=== PATIENT | male | born 1980 | race Caucasian/White ===

== ENCOUNTER 2017-11-10 10:23 | Inpatient (IN) | payer OTHER, MEDICAID ==
[2017-11-10] VITALS (45 sets, daily range): BP systolic 72–119; BP diastolic 42–71
[~2017-11-10] VITALS: Ht 175.3 cm; Wt 80.3 kg
[2017-11-10] MEDS ORDERED: NACL 0.9% 2,000 ML IV SCH (10:32)
[2017-11-10] MEDS ORDERED: METOCLOPRAMIDE 10 MG/2 ML INJ VIAL IVP ONE (10:40)
[2017-11-10 10:53] LABS: BASOPHILS % (AUTO) 0.2 % (0.0-2.0); HEMATOCRIT 33.9 % (36-52); LYMPHOCYTES # (AUTO) 1.7 K/uL (2.0-11.5); MEAN CORPUSCULAR HEMOGLOBIN 30 pg (27-31); MEAN CORPUSCULAR HGB CONC 33 g/dL (33-37); MEAN CORPUSCULAR VOLUME 91.6 fL (80-94); MONOCYTES # (AUTO) 1.8 K/uL (0.8-1.0); MONOCYTES % (AUTO) 9.9 % (1.7-9.3); NEUTROPHILS # (AUTO) 14.9 K/uL (1.8-7.7); NEUTROPHILS % (AUTO) 80.9 % (42.2-75.2); PLATELET COUNT (AUTO) 259 K/uL (140-450); RED CELL DISTRIBUTION WIDTH 15.3 % (11.6-13.7); WHITE BLOOD COUNT (AUTO) 18.4 K/uL (4.8-10.8)
[2017-11-10] MEDS ORDERED: ATOR40TA40 PO (10:56)
[2017-11-10] MEDS ORDERED: THO25 PO ×2 (10:56→10:59)
[2017-11-10] MEDS ORDERED: PRON INH ×2 (10:56→18:18)
[2017-11-10] MEDS ORDERED: FLUT1DSK2 IH (10:56)
[2017-11-10] MEDS ORDERED: DEXT1DRO5 OP (10:56)
[2017-11-10] MEDS ORDERED: FERR325E14 PO (10:59)
[2017-11-10] MEDS ORDERED: DIVA250T PO (10:59)
[2017-11-10] MEDS ORDERED: DOCU-299 PO (10:59)
[2017-11-10 11:00] LABS: ANION GAP 18.9 (8-16); CARBON DIOXIDE 22.7 mmol/L (21-32); CREATININE 3.7 mg/dL (0.7-1.3); POTASSIUM 4.6 mmol/L (3.5-5.1)
[2017-11-10] MEDS ORDERED: NACL 0.9% 1,000 ML IV ONE ×2 (11:00→11:55)
[2017-11-10] MEDS ORDERED: PIPERACILLIN/TAZOBACTAM 3.375 GM in DEXTROSE 5% 50 ML IV ONE (11:00)
[2017-11-10] MEDS ORDERED: VANCOMYCIN 1,000 MG in DEXTROSE 5% 250 ML IV ONE (11:00)
[2017-11-10] MEDS ORDERED: ACETAMINOPHEN 650 MG SUPP RC ONE ×2 (11:00→11:05)
[2017-11-10] MEDS ORDERED: ALBUTEROL 0.083% 2.5 MG/3 ML NEBU INH ONE (11:10)
[2017-11-10] MEDS ORDERED: PIPERACILLIN/TAZOBACTAM 3.375 GM VIAL IV ONE (11:21)
[2017-11-10 11:26] LABS: TOTAL BILIRUBIN 0.4 mg/dL (0.0-1.0)
[2017-11-10 11:27] LABS: ALBUMIN 2.9 g/dL (3.4-5.0)
[2017-11-10 11:27] LABS: APPEARANCE,URINE CLEAR (CLEAR); BILIRUBIN,URINE 1+ (NEGATIVE); BLOOD, URINE NEGATIVE (NEGATIVE); COLOR,URINE YELLOW (YELLOW); LEUKOCYTE ESTERASE ,URINE NEGATIVE (NEGATIVE); NITRITE, URINE NEGATIVE (NEGATIVE); PH,URINE 5.5 (5.0-9.0); UGLUCOSE NEGATIVE (NEGATIVE)
[2017-11-10 11:54] LABS: RBC,URINE NONE SEEN /HPF (0-5); URINE AMORPHOUS URATE 1+ /HPF (None Seen); WBC,URINE 0-5 (RARE) /HPF (0-5)
[2017-11-10] MEDS ORDERED: LIDOCAINE 1% 50 ML ONE (11:58)
[2017-11-10 11:59] LABS: BARBITURATE, URINE NEG. ng/ml (NEG <=200); BENZODIAZEPINE, URINE NEG. ng/mL (NEG <=200); CANNABINOID, URINE NEG. ng/mL (NEG <=50); COCAINE, URINE NEG. ng/mL (NEG <=300); OPIATE, URINE NEG. ng/mL (NEG <=2000); PHENCYCLIDINE SCREEN,URINE NEG. ng/mL (NEG <=25)
[2017-11-10] MEDS ORDERED: VANCOMYCIN 1,000 MG VIAL ONE (12:45)
[2017-11-10] MEDS ORDERED: ACETAMINOPHEN 325 MG TAB PO PRN (12:55)
[2017-11-10] MEDS ORDERED: HYDROcodone/APAP 7.5/325 MG 1 TAB PO PRN (12:55)
[2017-11-10] MEDS ORDERED: ZOLPIDEM 5 MG TAB PO PRN (12:55)
[2017-11-10] MEDS: NACL 0.9% 1,000 ML IV SCH ×2 (12:55→22:07)
[2017-11-10] MEDS ORDERED: MORPHINE SULFATE 4 MG/ML SYR ONE (13:01)
[2017-11-10 13:48] LABS: FREE T4 (FREE THYROXINE) 0.8 ng/dL (0.76-1.46); MAGNESIUM 1.7 mg/dL (1.8-2.4); PHOSPHORUS 3.6 mg/dL (2.5-4.9); THYROID STIMULATING HORMONE 0.57 uIU/mL (0.34-3.74)
[2017-11-10] MEDS ORDERED: NOREPINEPHRINE 8 MG in DEXTROSE 5% 250 ML IV PRN (14:15)
[2017-11-10] MEDS ORDERED: LEVOFLOXACIN 750 MG/D5W PREMIX 150 ML IV SCH (16:00)
[2017-11-10] MEDS: PIPER/TAZO 3.375GM/D5W PREMIX 50 ML IV SCH ×2 (17:08→23:09)
[2017-11-10] MEDS ORDERED: PIPERACILLIN/TAZOBACTAM 3.375 GM in DEXTROSE 5% 50 ML IV SCH (18:00)
[2017-11-10] MEDS ORDERED: GEMF600T5 PO (18:18)
[2017-11-10] MEDS ORDERED: MULT-153 PO (18:18)
[2017-11-10] MEDS ORDERED: SPIMDI INH (18:18)
[2017-11-10] MEDS ORDERED: ZET10 PO (18:18)
[2017-11-10] MEDS ORDERED: ACET-2619 PO (18:18)
[2017-11-10] MEDS ORDERED: OMEG-32 PO (18:18)
[2017-11-10] MEDS ORDERED: MAGN400S PO (18:18)
[2017-11-10] MEDS ORDERED: TOP25 PO (18:18)
[2017-11-10] MEDS ORDERED: ATRN INH (18:18)
[2017-11-10] MEDS ORDERED: FISH100053 PO (18:18)
[2017-11-10] MEDS ORDERED: FURO-572 PO (18:18)
[2017-11-10] MEDS ORDERED: NIAC500T30 PO (18:18)
[2017-11-10] MEDS ORDERED: ASCO500T45 PO (18:18)
[2017-11-10] MEDS ORDERED: BISA5ECT43 PR (18:18)
[2017-11-10] MEDS ORDERED: MIRABULK PO (18:18)
[2017-11-10] MEDS ORDERED: SYN.075 PO (18:18)
[2017-11-10] MEDS ORDERED: METO25TE2 PO (18:18)
[2017-11-10] MEDS ORDERED: FLOR250 PO (18:18)
[2017-11-10] MEDS ORDERED: ESOM20EC PO (18:18)
[2017-11-10] MEDS ORDERED: LORA-476 PO (18:18)
[2017-11-10] MEDS ORDERED: FLEPED RC (18:18)
[2017-11-10] MEDS ORDERED: METO-485 PO (18:18)
[2017-11-10] MEDS ORDERED: BISACODYL 10 MG SUPP RC PRN (18:20)
[2017-11-10] MEDS ORDERED: MAGNESIUM HYDROXIDE 400 MG PO SCH (18:20)
[2017-11-10] MEDS ORDERED: SODIUM PHOSPHATE 118 ML ENEM RC PRN (18:20)
[2017-11-10] MEDS ORDERED: LORazepam 1 MG TAB PO PRN (18:20)
[2017-11-10] MEDS ORDERED: ALBUTEROL SULFATE/IPRATROPIU 3 ML SOL IH PRN (18:30)
[2017-11-10] MEDS ORDERED: MAGNESIUM HYDROXIDE 2400 MG/30 ML UDC PO PRN (18:30)
[2017-11-10] MEDS ORDERED: MAG SULF 2000 MG/WATER PREMIX 100 ML IV SCH (19:00)
[2017-11-10] MEDS: ALBUTEROL SULFATE/IPRATROPIU 3 ML SOL IH SCH (19:00)
[2017-11-10] MEDS: POLYVINYL ALCOHOL 1.4% OP 15 ML SOL OP SCH (20:20)
[2017-11-10] MEDS: ATORVASTATIN 20 MG TAB PO SCH (20:20)
[2017-11-10] MEDS: DOCUSATE SODIUM 100 MG GELCAP PO SCH (20:20)
[2017-11-10] MEDS: METOCLOPRAMIDE 10 MG TAB PO SCH (20:20)
[2017-11-10] MEDS: DIVALPROEX 250 MG TABEC PO SCH (20:20)
[2017-11-10] MEDS: chlorproMAZINE 25 MG TAB PO SCH ×2 (20:21)
[2017-11-10] MEDS: GEMFIBROZIL 600 MG TAB PO SCH (20:35)
[2017-11-10] MEDS ORDERED: DIVALPROEX SODIUM 750 MG PO SCH (21:00)
[2017-11-10] MEDS ORDERED: HYPROMELLOSE OP SCH (21:00)
[2017-11-10] MEDS ORDERED: NON-FORMULARY ITEM (Fluticasone/Salmeterol* (Advair 250-50 Diskus*) 1 PUFF) IH SCH (21:00)
[2017-11-10] MEDS ORDERED: DEXTRAN OP SCH (21:00)
[2017-11-10] MEDS ORDERED: NON-FORMULARY ITEM (Atorvastatin Calcium 1 TAB) PO SCH (21:00)
[2017-11-11] VITALS (30 sets, daily range): BP systolic 96–139; BP diastolic 53–74
[2017-11-11] MEDS: NACL 0.9% 1,000 ML IV SCH ×3 (01:00→22:10)
[2017-11-11] MEDS: PIPER/TAZO 3.375GM/D5W PREMIX 50 ML IV SCH ×4 (05:09→23:45)
[2017-11-11 05:58] LABS: ANION GAP 13.3 (8-16); CARBON DIOXIDE 22.1 mmol/L (21-32); CREATININE 1.7 mg/dL (0.7-1.3); POTASSIUM 4.4 mmol/L (3.5-5.1)
[2017-11-11 06:05] LABS: MAGNESIUM 2.4 mg/dL (1.8-2.4); PHOSPHORUS 2.8 mg/dL (2.5-4.9)
[2017-11-11] MEDS: LEVOTHYROXINE 0.075 MG TAB PO SCH (06:08)
[2017-11-11 06:09] LABS: CHOL/HDL RATIO 8.4 (1-4.5)
[2017-11-11 07:04] LABS: BASOPHILS % (AUTO) 0.1 % (0.0-2.0); HEMATOCRIT 26.8 % (36-52); LYMPHOCYTES # (AUTO) 1.1 K/uL (2.0-11.5); LYMPHOCYTES % (AUTO) 8.9 % (20.5-51.1); MEAN CORPUSCULAR HEMOGLOBIN 30 pg (27-31); MEAN CORPUSCULAR HGB CONC 32 g/dL (33-37); MEAN CORPUSCULAR VOLUME 93.2 fL (80-94); MONOCYTES # (AUTO) 0.8 K/uL (0.8-1.0); MONOCYTES % (AUTO) 6.3 % (1.7-9.3); NEUTROPHILS # (AUTO) 10.4 K/uL (1.8-7.7); NEUTROPHILS % (AUTO) 84.7 % (42.2-75.2); PLATELET COUNT (AUTO) 199 K/uL (140-450); RED BLOOD CELL COUNT(AUTO) 2.88 MIL/uL (4.20-6.10); RED CELL DISTRIBUTION WIDTH 15.2 % (11.6-13.7); WHITE BLOOD COUNT (AUTO) 12.3 K/uL (4.8-10.8)
[2017-11-11] MEDS: ALBUTEROL SULFATE/IPRATROPIU 3 ML SOL IH SCH ×3 (07:04→19:09)
[2017-11-11 07:08] LABS: HEMOGLOBIN 8.5 g/dL (12.0-18.0)
[2017-11-11] MEDS: PANTOPRAZOLE 40 MG TABEC PO SCH (08:10)
[2017-11-11] MEDS: TOPIRAMATE 25 MG TAB PO SCH ×2 (08:10→16:05)
[2017-11-11] MEDS: DOCUSATE SODIUM 100 MG GELCAP PO SCH ×2 (08:33→21:08)
[2017-11-11] MEDS: LACTOBACILLUS RHAMNOSUS GG 1 EACH CAP PO SCH (08:34)
[2017-11-11] MEDS: FERROUS SULFATE 325 MG TABEC PO SCH (08:35)
[2017-11-11] MEDS: DIVALPROEX 250 MG TABEC PO SCH ×2 (08:35→21:08)
[2017-11-11] MEDS: POLYETHYLENE GLYCOL 17 GM/PKT PO SCH (08:35)
[2017-11-11] MEDS: MULTIVITAMIN 1 TAB PO SCH (08:36)
[2017-11-11] MEDS: METOCLOPRAMIDE 10 MG TAB PO SCH ×4 (08:36→21:09)
[2017-11-11] MEDS: chlorproMAZINE 25 MG TAB PO SCH ×3 (08:37→21:10)
[2017-11-11] MEDS: ASCORBIC ACID 500 MG TAB PO SCH (08:38)
[2017-11-11] MEDS: POLYVINYL ALCOHOL 1.4% OP 15 ML SOL OP SCH ×4 (08:41→21:08)
[2017-11-11] MEDS: NIACIN 500 MG TAB PO SCH (08:42)
[2017-11-11] MEDS: GEMFIBROZIL 600 MG TAB PO SCH ×2 (08:59→21:08)
[2017-11-11] MEDS ORDERED: NON-FORMULARY ITEM (Tiotropium Bromide* (Spiriva Mdi*) 1 CAP) INH SCH (09:00)
[2017-11-11] MEDS ORDERED: OMEGA PO SCH ×2 (09:00)
[2017-11-11] MEDS ORDERED: EPA PO SCH (09:00)
[2017-11-11] MEDS ORDERED: NON-FORMULARY ITEM (Saccharomyces Boulardii* (Florastor*) 250 MG) PO SCH (09:00)
[2017-11-11] MEDS ORDERED: DHA PO SCH (09:00)
[2017-11-11] MEDS ORDERED: NON-FORMULARY ITEM (Esomeprazole Magnesium* (Nexium*) 1 CAP) PO SCH (09:00)
[2017-11-11] MEDS ORDERED: LEVOFLOXACIN 500 MG/D5W PREMIX 100 ML IV SCH (09:00)
[2017-11-11] MEDS ORDERED: FISH OIL PO SCH ×2 (09:00)
[2017-11-11] MEDS ORDERED: FATTY ACIDS PO SCH (09:00)
[2017-11-11] MEDS: LEVOFLOXACIN 750 MG/D5W PREMIX 150 ML IV SCH (16:05)
[2017-11-11] MEDS: EZETIMIBE 10 MG TAB PO SCH (16:19)
[2017-11-11] MEDS: CLINICAL MONITORING MC PRN ×2 (16:53→18:41)
[2017-11-11] MEDS ORDERED: BENZONATATE 100 MG CAPLF PO PRN (18:35)
[2017-11-11] MEDS: ATORVASTATIN 20 MG TAB PO SCH (21:09)
[2017-11-11] MEDS ORDERED: guaiFENesin 20 MG/ML UDC PO PRN (22:05)
[2017-11-12] VITALS (8 sets, daily range): BP systolic 112–132; BP diastolic 55–77
[2017-11-12] MEDS: guaiFENesin 20 MG/ML UDC PO PRN (03:30)
[2017-11-12] MEDS: PIPER/TAZO 3.375GM/D5W PREMIX 50 ML IV SCH ×4 (05:08→23:59)
[2017-11-12] MEDS: NACL 0.9% 1,000 ML IV SCH ×3 (05:08→22:07)
[2017-11-12 05:09] LABS: BASOPHILS % (AUTO) 0.1 % (0.0-2.0); EOSINOPHILS % (AUTO) 0.1 % (0.0-4.0); HEMATOCRIT 27.5 % (36-52); HEMOGLOBIN 8.8 g/dL (12.0-18.0); LYMPHOCYTES # (AUTO) 1.5 K/uL (2.0-11.5); LYMPHOCYTES % (AUTO) 13.9 % (20.5-51.1); MEAN CORPUSCULAR HEMOGLOBIN 30 pg (27-31); MEAN CORPUSCULAR HGB CONC 32 g/dL (33-37); MEAN CORPUSCULAR VOLUME 92.5 fL (80-94); MONOCYTES # (AUTO) 0.7 K/uL (0.8-1.0); MONOCYTES % (AUTO) 6.8 % (1.7-9.3); NEUTROPHILS # (AUTO) 8.4 K/uL (1.8-7.7); NEUTROPHILS % (AUTO) 79.1 % (42.2-75.2); PLATELET COUNT (AUTO) 215 K/uL (140-450); RED BLOOD CELL COUNT(AUTO) 2.97 MIL/uL (4.20-6.10); RED CELL DISTRIBUTION WIDTH 15.4 % (11.6-13.7); WHITE BLOOD COUNT (AUTO) 10.6 K/uL (4.8-10.8)
[2017-11-12] MEDS: LEVOTHYROXINE 0.075 MG TAB PO SCH (05:51)
[2017-11-12 05:57] LABS: MAGNESIUM 1.8 mg/dL (1.8-2.4); PHOSPHORUS 1.9 mg/dL (2.5-4.9)
[2017-11-12 05:59] LABS: CARBON DIOXIDE 21.4 mmol/L (21-32); CREATININE 1.3 mg/dL (0.7-1.3); POTASSIUM 4.4 mmol/L (3.5-5.1)
[2017-11-12] MEDS ORDERED: MAG SULF 2000 MG/WATER PREMIX 50 ML IV SCH ×2 (06:30→11:51)
[2017-11-12] MEDS: ALBUTEROL SULFATE/IPRATROPIU 3 ML SOL IH SCH ×3 (07:12→19:21)
[2017-11-12] MEDS: DOCUSATE SODIUM 100 MG GELCAP PO SCH ×2 (09:00→21:00)
[2017-11-12] MEDS: POLYETHYLENE GLYCOL 17 GM/PKT PO SCH (09:00)
[2017-11-12] MEDS: TOPIRAMATE 25 MG TAB PO SCH ×2 (09:01→16:28)
[2017-11-12] MEDS: POLYVINYL ALCOHOL 1.4% OP 15 ML SOL OP SCH ×4 (09:02→21:11)
[2017-11-12] MEDS: PANTOPRAZOLE 40 MG TABEC PO SCH (09:02)
[2017-11-12] MEDS: LACTOBACILLUS RHAMNOSUS GG 1 EACH CAP PO SCH (09:03)
[2017-11-12] MEDS: FERROUS SULFATE 325 MG TABEC PO SCH (09:04)
[2017-11-12] MEDS: DIVALPROEX 250 MG TABEC PO SCH ×2 (09:04→20:43)
[2017-11-12] MEDS: GEMFIBROZIL 600 MG TAB PO SCH ×2 (09:05→20:42)
[2017-11-12] MEDS: SODIUM PHOS / POTASSIUM PHOS 1 PKT PDR PO SCH ×2 (09:05→20:43)
[2017-11-12] MEDS: METOCLOPRAMIDE 10 MG TAB PO SCH ×4 (09:05→20:42)
[2017-11-12] MEDS: chlorproMAZINE 25 MG TAB PO SCH ×3 (09:06→20:45)
[2017-11-12] MEDS: MULTIVITAMIN 1 TAB PO SCH (09:06)
[2017-11-12] MEDS: NIACIN 500 MG TAB PO SCH (09:07)
[2017-11-12] MEDS: ASCORBIC ACID 500 MG TAB PO SCH (09:07)
[2017-11-12] MEDS: LEVOFLOXACIN 750 MG/D5W PREMIX 150 ML IV SCH (16:28)
[2017-11-12] MEDS: EZETIMIBE 10 MG TAB PO SCH (16:29)
[2017-11-12] MEDS: ATORVASTATIN 20 MG TAB PO SCH (20:42)
[2017-11-13] VITALS: BP 125/77
[2017-11-13 04:00] VITALS: BP 108/65
[2017-11-13] MEDS: PIPER/TAZO 3.375GM/D5W PREMIX 50 ML IV SCH ×4 (05:01→23:24)
[2017-11-13] MEDS: NACL 0.9% 1,000 ML IV SCH ×3 (05:01→22:07)
[2017-11-13 06:29] LABS: BASOPHILS % (AUTO) 0.2 % (0.0-2.0); EOSINOPHILS # (AUTO) 0.1 K/uL (0-0.4); EOSINOPHILS % (AUTO) 1.1 % (0.0-4.0); HEMATOCRIT 29.2 % (36-52); HEMOGLOBIN 9.5 g/dL (12.0-18.0); LYMPHOCYTES # (AUTO) 1.7 K/uL (2.0-11.5); LYMPHOCYTES % (AUTO) 18.9 % (20.5-51.1); MEAN CORPUSCULAR HEMOGLOBIN 30 pg (27-31); MEAN CORPUSCULAR HGB CONC 32 g/dL (33-37); MEAN CORPUSCULAR VOLUME 92.1 fL (80-94); MONOCYTES # (AUTO) 0.6 K/uL (0.8-1.0); MONOCYTES % (AUTO) 7.1 % (1.7-9.3); NEUTROPHILS # (AUTO) 6.5 K/uL (1.8-7.7); NEUTROPHILS % (AUTO) 72.7 % (42.2-75.2); PLATELET COUNT (AUTO) 253 K/uL (140-450); RED BLOOD CELL COUNT(AUTO) 3.17 MIL/uL (4.20-6.10); RED CELL DISTRIBUTION WIDTH 15.2 % (11.6-13.7); WHITE BLOOD COUNT (AUTO) 8.9 K/uL (4.8-10.8)
[2017-11-13] MEDS: LEVOTHYROXINE 0.075 MG TAB PO SCH (06:32)
[2017-11-13] MEDS: TOPIRAMATE 25 MG TAB PO SCH ×2 (06:32→15:24)
[2017-11-13 06:49] LABS: ANION GAP 15.6 (8-16); POTASSIUM 4.6 mmol/L (3.5-5.1)
[2017-11-13 07:05] LABS: MAGNESIUM 1.9 mg/dL (1.8-2.4); PHOSPHORUS 4.6 mg/dL (2.5-4.9)
[2017-11-13] MEDS: ALBUTEROL SULFATE/IPRATROPIU 3 ML SOL IH SCH ×3 (07:06→20:25)
[2017-11-13 08:00] VITALS: BP 107/61
[2017-11-13] MEDS: SODIUM PHOS / POTASSIUM PHOS 1 PKT PDR PO SCH ×3 (09:00→21:25)
[2017-11-13] MEDS: POLYETHYLENE GLYCOL 17 GM/PKT PO SCH (09:23)
[2017-11-13] MEDS: PANTOPRAZOLE 40 MG TABEC PO SCH (09:24)
[2017-11-13] MEDS: chlorproMAZINE 25 MG TAB PO SCH ×3 (09:24→21:28)
[2017-11-13] MEDS: FERROUS SULFATE 325 MG TABEC PO SCH (09:24)
[2017-11-13] MEDS: MULTIVITAMIN 1 TAB PO SCH (09:25)
[2017-11-13] MEDS: NIACIN 500 MG TAB PO SCH (09:25)
[2017-11-13] MEDS: GEMFIBROZIL 600 MG TAB PO SCH ×2 (09:25→21:26)
[2017-11-13] MEDS: DOCUSATE SODIUM 100 MG GELCAP PO SCH ×2 (09:25→21:00)
[2017-11-13] MEDS: LACTOBACILLUS RHAMNOSUS GG 1 EACH CAP PO SCH (09:25)
[2017-11-13] MEDS: ASCORBIC ACID 500 MG TAB PO SCH (09:26)
[2017-11-13] MEDS: METOCLOPRAMIDE 10 MG TAB PO SCH ×4 (09:26→21:27)
[2017-11-13] MEDS: DIVALPROEX 250 MG TABEC PO SCH ×2 (09:26→21:26)
[2017-11-13] MEDS: POLYVINYL ALCOHOL 1.4% OP 15 ML SOL OP SCH ×4 (09:40→21:28)
[2017-11-13] MEDS ORDERED: CLIN300C2 PO (11:36)
[2017-11-13] MEDS ORDERED: LEVO750T2 PO (11:36)
[2017-11-13] MEDS ORDERED: LACT1.4C PO (11:36)
[2017-11-13] MEDS ORDERED: METF500T PO (11:36)
[2017-11-13 12:00] VITALS: BP 119/78
[2017-11-13] MEDS ORDERED: INSULIN LISPRO SLIDING SCALE 100 UNITS/ML VIAL SUBQ PRN (12:50)
[2017-11-13] MEDS ORDERED: DEXTROSE 50% 50 ML SYR IVP PRN (12:50)
[2017-11-13] MEDS ORDERED: FLUCONAZOLE 400 MG/NS PREMIX 200 ML IV SCH (14:00)
[2017-11-13] MEDS: LEVOFLOXACIN 750 MG/D5W PREMIX 150 ML IV SCH (15:25)
[2017-11-13 16:00] VITALS: BP 112/68
[2017-11-13] MEDS: BLOOD GLUCOSE MONITORING 1 DEV DEV FS SCH ×2 (16:17→21:18)
[2017-11-13] MEDS: EZETIMIBE 10 MG TAB PO SCH (17:05)
[2017-11-13] MEDS: metFORMIN 500 MG TAB PO SCH (17:05)
[2017-11-13] MEDS: guaiFENesin 20 MG/ML UDC PO PRN (18:13)
[2017-11-13 20:00] VITALS: BP 134/76
[2017-11-13] MEDS: ATORVASTATIN 20 MG TAB PO SCH (21:26)
[2017-11-14] VITALS: BP 125/71
[2017-11-14] MEDS: guaiFENesin 20 MG/ML UDC PO PRN (02:23)
[2017-11-14 04:00] VITALS: BP 120/75
[2017-11-14] MEDS: PIPER/TAZO 3.375GM/D5W PREMIX 50 ML IV SCH ×2 (05:19→12:04)
[2017-11-14] MEDS: NACL 0.9% 1,000 ML IV SCH (05:20)
[2017-11-14] MEDS: BLOOD GLUCOSE MONITORING 1 DEV DEV FS SCH ×2 (06:29→12:17)
[2017-11-14] MEDS: LEVOTHYROXINE 0.075 MG TAB PO SCH (06:31)
[2017-11-14] MEDS: TOPIRAMATE 25 MG TAB PO SCH (06:31)
[2017-11-14] MEDS: ALBUTEROL SULFATE/IPRATROPIU 3 ML SOL IH SCH ×2 (07:47→13:40)
[2017-11-14 08:00] VITALS: BP 104/63
[2017-11-14] MEDS: SODIUM PHOS / POTASSIUM PHOS 1 PKT PDR PO SCH (09:00)
[2017-11-14] MEDS: POLYETHYLENE GLYCOL 17 GM/PKT PO SCH (09:00)
[2017-11-14] MEDS: DOCUSATE SODIUM 100 MG GELCAP PO SCH (09:00)
[2017-11-14] MEDS: NIACIN 500 MG TAB PO SCH (10:07)
[2017-11-14] MEDS: MULTIVITAMIN 1 TAB PO SCH (10:08)
[2017-11-14] MEDS: LACTOBACILLUS RHAMNOSUS GG 1 EACH CAP PO SCH (10:08)
[2017-11-14] MEDS: GEMFIBROZIL 600 MG TAB PO SCH (10:08)
[2017-11-14] MEDS: metFORMIN 500 MG TAB PO SCH (10:09)
[2017-11-14] MEDS: DIVALPROEX 250 MG TABEC PO SCH (10:09)
[2017-11-14] MEDS: ASCORBIC ACID 500 MG TAB PO SCH (10:10)
[2017-11-14] MEDS: METOCLOPRAMIDE 10 MG TAB PO SCH ×2 (10:10→12:24)
[2017-11-14] MEDS: PANTOPRAZOLE 40 MG TABEC PO SCH (10:10)
[2017-11-14] MEDS: POLYVINYL ALCOHOL 1.4% OP 15 ML SOL OP SCH ×2 (10:11→12:24)
[2017-11-14] MEDS: FERROUS SULFATE 325 MG TABEC PO SCH (10:11)
[2017-11-14] MEDS: chlorproMAZINE 25 MG TAB PO SCH (10:25)
[2017-11-14 12:00] VITALS: BP 119/69
[2017-11-14] MEDS ORDERED: FLUC200T PO (12:51)
[2017-11-14] MEDS ORDERED: METF500T PO (12:52)
[2017-11-14] MEDS ORDERED: LACT1.4C PO (12:53)
[2017-11-14] MEDS ORDERED: [UNRECOGNIZED DRUG - CODE] MC (12:58)
== END 2017-11-14 15:45 | DRG 871 ==
LOC: MED 10:23 → MIC 13:03 → MTU 11-12 12:32
PROVIDERS: ADMIT General Practice; ATTEND General Practice
PROC: 06HY33Z Insertion of Infusion Device into Lower Vein, Percutaneous Approach (ICD-10-PCS; principal; 2017-11-10)
PROC: 5A09357 Assistance with Respiratory Ventilation, Less than 24 Consecutive Hours, Continuous Positive Airway Pressure (ICD-10-PCS; 2017-11-10)
PROC: 5A09357 Assistance with Respiratory Ventilation, Less than 24 Consecutive Hours, Continuous Positive Airway Pressure (ICD-10-PCS; 2017-11-11)
DX: A41.9 Sepsis, unspecified organism (principal); J69.0 Pneumonitis due to inhalation of food and vomit; J96.01 Acute respiratory failure with hypoxia; N17.0 Acute kidney failure with tubular necrosis; R65.21 Severe sepsis with septic shock; E83.39 Other disorders of phosphorus metabolism; I24.8 Other forms of acute ischemic heart disease; E44.0 Moderate protein-calorie malnutrition; J44.0 Chronic obstructive pulmonary disease with (acute) lower respiratory infection; I10 Essential (primary) hypertension; E78.5 Hyperlipidemia, unspecified; E03.9 Hypothyroidism, unspecified; D64.9 Anemia, unspecified; K21.9 Gastro-esophageal reflux disease without esophagitis; E83.42 Hypomagnesemia; K59.00 Constipation, unspecified; E86.0 Dehydration; E66.3 Overweight; F79 Unspecified intellectual disabilities; E11.65 Type 2 diabetes mellitus with hyperglycemia; Z88.8 Allergy status to other drugs, medicaments and biological substances; Z79.899 Other long term (current) drug therapy; Z89.412 Acquired absence of left great toe; Z68.26 Body mass index [BMI] 26.0-26.9, adult
CPT/HCPCS: 36415; 36556; 36600; 71045; 80048; 80053; 80305; 81001; 82150; 82803; 82948; 83036; 83605; 83690; 83735; 83880; 84100; 84439; 84443; 84484; 85025; 86886; 86900; 86901; 87040; 87070; 87081; 87086; 87205; 89220; 92526; 93005; 94640; 94660; 96361; 96365; 96375; 99291; C1758; J1450; J1815; J1956; J2001; J2270; J2543; J2765; J3370; J3475; J3490; J7030; J7060; J7613; J7620; J8597; Q0092

== ENCOUNTER 2018-03-04 16:37 | Emergency (ER) | payer OTHER, MEDICAID ==
[~2018-03-04] VITALS: Ht 175.3 cm; Wt 73.0 kg
[~2018-03-04 16:37] MED LIST: ACET-2619 PO; ASCO500T45 PO; ATOR40TA40 PO; ATRN INH; BISA5ECT43 PR; CLIN300C2 PO; DEXT1DRO5 OP; DIVA250T PO; DOCU-299 PO; ESOM20EC PO; FERR325E14 PO; FISH100053 PO; FLEPED RC; FLOR250 PO; FLUC200T PO; FLUT1DSK2 IH; GEMF600T5 PO; LACT1.4C PO; LEVO750T2 PO; LORA-476 PO; MAGN400S PO; METF500T PO; METO-485 PO; MIRABULK PO; MULT-153 PO; NIAC500T30 PO; OMEG-32 PO; PRON INH; SPIMDI INH; SYN.075 PO; THO25 PO; TOP25 PO; ZET10 PO; [UNRECOGNIZED DRUG - CODE] MC
[2018-03-04 16:50] VITALS: BP 115/83
--- NOTE | 2018-03-04 16:53 | NUR ---
PT AMBULATES BACK TO THE LOBBY WITH [facility] REDEVELOPMENT SITE MANAGER
--- NOTE | 2018-03-04 18:16 | NUR ---
PT AMBULATES TO BED 8
--- NOTE | 2018-03-04 18:16 | NUR ---
PT AMBULATES TO BED 8 AT THIS TIME W/ STEADY GAIT
--- NOTE | 2018-03-04 18:23 | NUR ---
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 PER CAREGIVER, PT HAS BEEN EATING/DRINKING WELL. PT HAD 2X LARGE BM TODAY. PT IS A POOR HISTORIAN. PT PRESENTS ON 2L/MIN OF 02. PT AAOX4, REPORTS THAT HE WANTS TO BE ADMITTED. CAREGIVER REPORTS THAT HE HAS "EPISODES" SIMILAR TO THIS WHERE HE FIXATES ON A PROBLEM SO THAT HE CAN BE ADMITTED TO THE HOSPITAL. RR EVEN AND UNLABORED, LUNGS BL CLEAR. CMS INTACT. ABD SOFT, NON-TENDER. BOWEL SOUNDS ACTIVE X 4. ER MD NOTIFIED OF PT STATUS. SAFETY PRECAUTIONS IN PLACE. WILL CONTINUE TO MONITOR. PT NEEDS MET. PT GIVEN A URINAL TO ATTEMPT TO OBTAIN URINE SAMPLE.
[2018-03-04] MEDS ORDERED: NACL 0.9% 1,000 ML IV SCH (18:27)
[2018-03-04] MEDS ORDERED: BISACODYL 5 MG TABEC PO ONE (18:30)
[2018-03-04] MEDS ORDERED: POLYETHYLENE GLYCOL 17 GM/PKT PO ONE (18:30)
[2018-03-04] MEDS ORDERED: LORazepam 2 MG/ML VIAL IVP ONE (18:30)
[2018-03-04] MEDS ORDERED: BISACODYL 10 MG SUPP RC ONE (18:30)
[2018-03-04 19:17] LABS: EOSINOPHILS % (AUTO) 0.7 % (0.0-4.0); HEMATOCRIT 34.1 % (36-52); HEMOGLOBIN 10.9 g/dL (12.0-18.0); LYMPHOCYTES % (AUTO) 35.3 % (20.5-51.1); MEAN CORPUSCULAR HEMOGLOBIN 30 pg (27-31); MEAN CORPUSCULAR HGB CONC 32 g/dL (33-37); MEAN CORPUSCULAR VOLUME 92.8 fL (80-94); MONOCYTES % (AUTO) 11.5 % (1.7-9.3); NEUTROPHILS % (AUTO) 51.8 % (42.2-75.2); PLATELET COUNT (AUTO) 389 K/uL (140-450); RED BLOOD CELL COUNT(AUTO) 3.67 MIL/uL (4.20-6.10); RED CELL DISTRIBUTION WIDTH 14.3 % (11.6-13.7); WHITE BLOOD COUNT (AUTO) 8.1 K/uL (4.8-10.8)
[2018-03-04 19:18] LABS: BASOPHILS % (AUTO) 0.7 % (0.0-2.0)
[2018-03-04 19:21] LABS: ALBUMIN 3.6 g/dL (3.4-5.0); ANION GAP 12.8 (8-16); CARBON DIOXIDE 25.8 mmol/L (21-32); CREATININE 1.3 mg/dL (0.7-1.3); POTASSIUM 4.6 mmol/L (3.5-5.1); TOTAL BILIRUBIN 0.2 mg/dL (0.0-1.0)
--- NOTE | 2018-03-04 19:21 | NUR ---
TRANSFER OF CARE AT THIS TIME, REPORT GIVEN TO KARISSA BABB
--- NOTE | 2018-03-04 19:22 | NUR ---
RECIEVED REPORT FROM NAHUM RN, PT IN STABLE CONDITION
--- NOTE | 2018-03-04 19:22 | NUR ---
REPORT RECIEVED FROM NAHUM HANCOCK PT IN STABLE CONDITON
--- NOTE | 2018-03-04 19:41 | NUR ---
PT TAKEN TO CT AT THIS TIME
[2018-03-04 20:07] LABS: APPEARANCE,URINE CLEAR (CLEAR); BILIRUBIN,URINE NEGATIVE (NEGATIVE); BLOOD, URINE NEGATIVE (NEGATIVE); COLOR,URINE YELLOW (YELLOW); LEUKOCYTE ESTERASE ,URINE NEGATIVE (NEGATIVE); NITRITE, URINE NEGATIVE (NEGATIVE); UGLUCOSE NEGATIVE (NEGATIVE)
--- NOTE | 2018-03-04 20:57 | NUR ---
PT RESTING COMFORTABLY IN BED. NO S/S OF DISTRESS NOTED
[2018-03-04 21:07] VITALS: BP 120/88
--- NOTE | 2018-03-04 21:08 | NUR ---
Patient discharged with v/s stable. Written and verbal after care instructions given and explained. Patient alert, oriented and verbalized understanding of instructions. Ambulatory with steady gait. All questions addressed prior to discharge. ID band removed. Patient advised to follow up with PMD. Rx of AZITHROMYCIN given. Patient educated on indication of medication including possible reaction and side effects. Opportunity to ask questions provided and answered.
== END 2018-03-04 21:07 | disposition home or self-care (01) ==
LOC: MED 16:37
DX: J18.9 Pneumonia, unspecified organism (principal); R10.13 Epigastric pain; J44.9 Chronic obstructive pulmonary disease, unspecified; K21.9 Gastro-esophageal reflux disease without esophagitis; E03.9 Hypothyroidism, unspecified; Z88.8 Allergy status to other drugs, medicaments and biological substances; Z79.84 Long term (current) use of oral hypoglycemic drugs; Z79.899 Other long term (current) drug therapy
CPT/HCPCS: 36415; 74176; 80053; 81003; 82948; 83690; 85025; 96374; 99285; J2060

== ENCOUNTER 2018-03-31 21:44 | Inpatient (IN) | payer OTHER, MEDICAID ==
[~2018-03-31] VITALS: Ht 175.3 cm; Wt 78.9 kg
[2018-03-31 21:55] VITALS: BP 125/90
--- NOTE | 2018-03-31 21:55 | NUR ---
PT BIBA BLS TO BED 9, PT AMBULATORY , PROVIDED URINE SAMPLE.
--- NOTE | 2018-03-31 22:20 | NUR ---
PT PRESENTS TO ED WITH C/O ABD PAIN WITH N/V X 1 DAY. ABDOMEN IS SOFT, NON-TENDER BOWEL SOUNDS ACTIVE X 4 QUADRANTS. NO REBOUND TENDERNESS PRESENT UPON PALPATION. PT PLACED IN BED, IN GOWN PENDING MD CABALLERO.
[2018-03-31] MEDS ORDERED: FOLI1TAB90 PO (22:53)
[2018-03-31] MEDS ORDERED: [UNRECOGNIZED DRUG - CODE] PO (22:53)
[2018-03-31] MEDS ORDERED: HYD1C TP (22:53)
--- NOTE | 2018-04-01 00:10 | NUR ---
PT RESTING IN BED, NO NEW COMPLAINTS OR QUESTIONS. WILL CONTINUE TO MONITOR.
[2018-04-01 00:29] LABS: HEMATOCRIT 35.8 % (36-52); HEMOGLOBIN 11.8 g/dL (12.0-18.0); MEAN CORPUSCULAR HEMOGLOBIN 30 pg (27-31); MEAN CORPUSCULAR HGB CONC 33 g/dL (33-37); MEAN CORPUSCULAR VOLUME 92.1 fL (80-94); PLATELET COUNT (AUTO) 266 K/uL (140-450); RED BLOOD CELL COUNT(AUTO) 3.89 MIL/uL (4.20-6.10); RED CELL DISTRIBUTION WIDTH 14.5 % (11.6-13.7)
[2018-04-01 00:49] LABS: EOSINOPHILS % (MANUAL) 1 % (0-4); LYMPHOCYTES % (MANUAL) 40 % (20-46); MONOCYTES % (MANUAL) 5 % (5-12)
[2018-04-01 00:51] LABS: CARBON DIOXIDE 29.8 mmol/L (21-32); CREATININE 1.3 mg/dL (0.7-1.3); POTASSIUM 4.8 mmol/L (3.5-5.1)
[2018-04-01 00:55] LABS: ALBUMIN 4.1 g/dL (3.4-5.0); TOTAL BILIRUBIN 0.2 mg/dL (0.0-1.0)
[2018-04-01] MEDS ORDERED: NACL 0.9% 2,000 ML IV ONE (01:15)
[2018-04-01] MEDS ORDERED: MORPHINE SULFATE 2 MG/ML SYR IVP PRN (01:20)
[2018-04-01] MEDS ORDERED: DOCUSATE SODIUM 100 MG GELCAP PO PRN (01:20)
[2018-04-01] MEDS ORDERED: HYDROcodone/APAP 5/325 MG 1 TAB TAB PO PRN (01:20)
[2018-04-01] MEDS ORDERED: ACETAMINOPHEN 325 MG TAB PO PRN (01:20)
[2018-04-01] MEDS: DEXT 5% / NACL 0.45% 1,000 ML IV SCH ×3 (01:20→21:20)
[2018-04-01] MEDS ORDERED: ZOLPIDEM 5 MG TAB PO PRN (01:20)
[2018-04-01] MEDS ORDERED: ONDANSETRON 4 MG/2 ML VIAL IM/IVP PRN (01:20)
[2018-04-01] MEDS ORDERED: LORazepam 2 MG/ML VIAL IM/IVP PRN (01:20)
[2018-04-01 01:59] LABS: PROTHROMBIN TIME 10.4 secs (10.8-13.4)
[2018-04-01 02:00] LABS: MAGNESIUM 2.2 mg/dL (1.8-2.4); PHOSPHORUS 4.4 mg/dL (2.5-4.9)
[2018-04-01 02:05] LABS: APPEARANCE,URINE CLEAR (CLEAR); BILIRUBIN,URINE NEGATIVE (NEGATIVE); BLOOD, URINE NEGATIVE (NEGATIVE); COLOR,URINE YELLOW (YELLOW); UGLUCOSE NEGATIVE (NEGATIVE)
[2018-04-01 02:06] LABS: LEUKOCYTE ESTERASE ,URINE NEGATIVE (NEGATIVE); NITRITE, URINE NEGATIVE (NEGATIVE)
[2018-04-01 02:11] LABS: BARBITURATE, URINE NEG. ng/ml (NEG <=200); BENZODIAZEPINE, URINE NEG. ng/mL (NEG <=200); COCAINE, URINE NEG. ng/mL (NEG <=300); OPIATE, URINE NEG. ng/mL (NEG <=2000); PHENCYCLIDINE SCREEN,URINE NEG. ng/mL (NEG <=25)
[2018-04-01 02:40] LABS: CANNABINOID, URINE NEG. ng/mL (NEG <=50)
[2018-04-01] MEDS ORDERED: DEXTROSE 50% 50 ML SYR IVP PRN (02:40)
[2018-04-01] MEDS ORDERED: INSULIN LISPRO SLIDING SCALE 100 UNITS/ML VIAL SUBQ PRN (02:40)
--- NOTE | 2018-04-01 02:57 | NUR ---
Patient will be admitted to care of DR LOWRY. Admited to MED-SURG. Will go to room 120-A. Belongings list completed. Report to KARISSA GRAMAJO.
[2018-04-01] MEDS ORDERED: ALBUTEROL SULFATE/IPRATROPIU 3 ML SOL IH PRN (03:15)
[2018-04-01] MEDS ORDERED: BISACODYL 10 MG SUPP RC PRN ×2 (03:50→06:00)
[2018-04-01] MEDS ORDERED: SODIUM PHOSPHATE PEDIATRIC 67.5 ML ENEM RC SCH (03:50)
[2018-04-01 04:00] VITALS: BP 130/80
[2018-04-01] MEDS ORDERED: cefTRIAXone 1,000 MG VIAL ONE (04:23)
[2018-04-01] MEDS ORDERED: MAGNESIUM HYDROXIDE 2400 MG/30 ML UDC PO PRN (04:25)
[2018-04-01] MEDS ORDERED: METO25TA PO (04:26)
[2018-04-01] MEDS: BLOOD GLUCOSE MONITORING 1 DEV DEV FS SCH ×4 (05:19→20:20)
[2018-04-01] MEDS: metroNIDAZOLE 500 MG/NS PREMIX 100 ML IV SCH ×3 (05:36→20:20)
[2018-04-01] MEDS: ALBUTEROL SULFATE/IPRATROPIU 3 ML SOL IH SCH ×3 (06:59→19:00)
--- NOTE | 2018-04-01 07:18 | NUR ---
ENDORSED PT TO AM NURSE. PT IN STABLE CONDITION
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
[2018-04-01 08:00] VITALS: BP 134/80
--- NOTE | 2018-04-01 08:39 | NUR ---
ABDOMINAL ULTRASOUND IN PROGRESS MEDICAL OFFICE ASSISTANT TO ATTEMPT ABG AND INCENTIVE SPIROMETRY THERAPY AT A LATER TIME
[2018-04-01] MEDS ORDERED: POLYETHYLENE GLYCOL 17 GM/PKT PO SCH (09:00)
[2018-04-01] MEDS ORDERED: ASCORBIC ACID 500 MG TAB PO SCH (09:00)
[2018-04-01] MEDS ORDERED: LEVOTHYROXINE 0.075 MG TAB PO SCH (09:00)
--- NOTE | 2018-04-01 09:02 | NUR ---
PATIENT HAS BEEN SCREENED AND CATEGORIZED HIGH NUTRITION RISK. PATIENT WILL BE SEEN WITHIN 1-2 DAYS OF ADMISSION. 04/01/18 04/02/[address]
[2018-04-01] MEDS: chlorproMAZINE 25 MG TAB PO SCH ×2 (09:08→20:21)
[2018-04-01] MEDS: METOPROLOL 25 MG TAB PO SCH ×2 (09:09→20:21)
[2018-04-01] MEDS: MULTIVIT/MIN/CA/FE/FA 1 TAB PO SCH (09:09)
[2018-04-01] MEDS: PANTOPRAZOLE 40 MG TABEC PO SCH (09:10)
[2018-04-01] MEDS: FERROUS SULFATE 325 MG TABEC PO SCH (09:10)
[2018-04-01] MEDS: DOCUSATE SODIUM 100 MG GELCAP PO SCH (09:11)
[2018-04-01] MEDS: ATORVASTATIN 20 MG TAB PO SCH (09:11)
[2018-04-01] MEDS: GEMFIBROZIL 600 MG TAB PO SCH ×2 (09:12→20:21)
[2018-04-01] MEDS: METOCLOPRAMIDE 10 MG TAB PO SCH ×4 (09:12→20:21)
[2018-04-01] MEDS: NIACIN 500 MG TAB PO SCH (09:12)
[2018-04-01] MEDS: metFORMIN 500 MG TAB PO SCH ×2 (09:12→20:20)
[2018-04-01] MEDS: TOPIRAMATE 25 MG TAB PO SCH ×2 (09:13→20:22)
[2018-04-01] MEDS: DIVALPROEX 250 MG TABEC PO SCH ×2 (09:13→20:20)
[2018-04-01] MEDS: POLYETHYLENE GLYCOL 17 GM/PKT PO SCH (09:14)
--- NOTE | 2018-04-01 11:29 | NUR ---
AWAKE AND ALERT RESPONSIVE TOLERATED INCENTIVE SPIROMETRY (IS) THERAPY WELL WITHOUT INCIDENT ENCOURAGED PATIENT WITH ACKNOWLEDGEMENT TO USE IS EVERY 1-2 HOURS WHILE AWAKE
--- NOTE | 2018-04-01 13:00 | NUR ---
SPUTUM COLLECTED AND SENT TO LAB.
[2018-04-01 16:00] VITALS: BP 134/80
--- NOTE | 2018-04-01 16:59 | NUR ---
04/01/18 RD INITIAL ASSESSMENT COMPLETED PLEASE REFER TO NUTRITION ASSESSMENT UNDER CARE ACTIVITY FOR ESTIMATED NUTRITIONAL NEEDS. 1. RECOMMEND A CCHO 60 GM AND CARDIAC DIET 2. RD TO FOLLOW-UP 3-5 DAYS, MODERATE RISK FABIOLA GALVAN, RD
[2018-04-01] MEDS: EZETIMIBE 10 MG TAB PO SCH (17:15)
--- NOTE | 2018-04-01 18:26 | NUR ---
* ST NOTE * Pt seen at bedside. Pt alert, cooperative and engaged throughout session, reporting no c/o pain at this time. Bedside dysphagia and oral mechanism exams completed. See evaluation report for further details. Pt tolerating 4/4 alternating PO trials of regular solid saltine crackers as well as 5/5 alternating PO trials of nectar-thick apple juice via a cup, all w/o s/s of aspiration or choking. Pt education completed regarding aspiration precautions and safe swallow compensatory strategies pt could utilize to aid w/swallow function, w/pt demonstrating follow through requiring occasional to no cueing from the clinician after setup of task. It is thus recommended pt's PO diet consistency remain at regular solids w/nectar-thickened liquids for all meals w/aspiration precautions in place. No further ST follow up recommended at this time. Pt and caregiver/Nsg Luis Antonio education completed regarding results of evaluation; benefits of abiding by recommended PO diet consistency and aspiration precautions; and prognosis for improvement; with pt and caregiver/nsg Luis Antonio verbalizing understanding and agreement w/clinician's recommendations. Recommend: - PO diet consistency of REGULAR SOLIDS W/NECTAR-THICKENED LIQUIDS for all meals - Maintain STRICT ASPIRATION PRECAUTIONS DURING PT'S PO INTAKE OF SOLIDS/LIQUIDS/MEDICATION 2/2 to pt's Dx of aspiration pna - Remind/Cue pt to SIT UP AT 80-90 DEGREE ANGLE DURING PO INTAKE; EAT SLOWLY; ALTERNATE BTWN SOLIDS & LIQUIDS; AND TAKE SMALL BITES/SIPS No further ST follow up recommended at this time. G8996 CJ G8997 CI G8998 CI NOMS Level 2 Time In/Out 17:55 -18:25
--- NOTE | 2018-04-01 19:15 | NUR ---
ENDORSED PT TO STREET LIGHT SERVICER RN. PT IN STABLE CONDITION.
--- NOTE | 2018-04-01 19:16 | NUR ---
RECEIVED PT IN STABLE CONDITION FROM KS NURSE. AWAKE,ALERT AND ORIENTED X3. PT HAS DEVELOPMENTAL DELAY. PT NEED ASSISTANCE IN AMBULATION. WITH ASPIRATION PRECAUTION. NEED NECTAR THICKENER PER ST EVALUATION. WILL HAVE MD AWARE FOR CHANGE IN DIET. PT HAS IVF INFUSING WELL ON THE LEFT EXTERNAL JUGULAR . BED ON LOW POSITION . SIDE RAILS ARE PADDED FOR SEIZURE PRECAUTION. CALL LIGHT PLACED WITHIN EASY REACH. WILL CONTINUE TO MONITOR.
--- NOTE | 2018-04-01 20:20 | NUR ---
BLOOD SUGAR WAS CHECKED RESULT 120. NO INSULIN COVERAGE NEEDED. PT HAD SOME PUDDING. WILL CONTINUE TO MONITOR.
--- NOTE | 2018-04-01 20:25 | NUR ---
PT ABLE TO TOLERATE ALL NIGHT MEDS WITH PUDDING AND WATER WITH THICKENER. NO SWALLOWING PROBLEM NOTED.
--- NOTE | 2018-04-01 22:00 | NUR ---
HAS BEEN ASSISTED TO THE BATHROOM. HAD A BM. ABLE TO AMBULATE WITH STANDBY ASSISTANCE.
[2018-04-01 23:35] VITALS: BP 110/76
--- NOTE | 2018-04-02 00:30 | NUR ---
PT NOW ASLEEP. NO S/S OF ANY DISCOMFORT NOTED.
--- NOTE | 2018-04-02 03:16 | NUR ---
HAS BEEN UP TO THE BATHROOM. VOIDED WELL.
[2018-04-02] MEDS: metroNIDAZOLE 500 MG/NS PREMIX 100 ML IV SCH ×3 (04:39→20:57)
[2018-04-02] MEDS: BLOOD GLUCOSE MONITORING 1 DEV DEV FS SCH ×4 (06:18→20:42)
--- NOTE | 2018-04-02 06:18 | NUR ---
BLOOD SUGAR THIS AM 107. PT ON IVF INFUSING WELL.
[2018-04-02 06:22] LABS: BASOPHILS % (AUTO) 0.3 % (0.0-2.0); EOSINOPHILS # (AUTO) 0.1 K/uL (0-0.4); HEMATOCRIT 36.7 % (36-52); HEMOGLOBIN 12.1 g/dL (12.0-18.0); LYMPHOCYTES # (AUTO) 2.7 K/uL (2.0-11.5); LYMPHOCYTES % (AUTO) 30.2 % (20.5-51.1); MEAN CORPUSCULAR HEMOGLOBIN 31 pg (27-31); MEAN CORPUSCULAR HGB CONC 33 g/dL (33-37); MEAN CORPUSCULAR VOLUME 92.6 fL (80-94); MONOCYTES # (AUTO) 0.8 K/uL (0.8-1.0); MONOCYTES % (AUTO) 9.5 % (1.7-9.3); NEUTROPHILS # (AUTO) 5.2 K/uL (1.8-7.7); PLATELET COUNT (AUTO) 220 K/uL (140-450); RED BLOOD CELL COUNT(AUTO) 3.97 MIL/uL (4.20-6.10); RED CELL DISTRIBUTION WIDTH 14.6 % (11.6-13.7); WHITE BLOOD COUNT (AUTO) 8.8 K/uL (4.8-10.8)
[2018-04-02] MEDS: ALBUTEROL SULFATE/IPRATROPIU 3 ML SOL IH SCH ×3 (07:23→19:15)
--- NOTE | 2018-04-02 07:25 | NUR ---
RECEIVED PT REPORT FROM WAYS OPERATOR RN AT BEDSIDE. PT IS AAOX3, AMBULATORY, IV ON LEFT NECK 20G, INTACT AND INFUSING WELL. NO S/S OF DISTRESS ON ROOM AIR. PT COUGHS SOMETIMES. SKIN WARM TO TOUGH, INTACT. FALL AND SEIZURE PRECAUTIONS IN PLACE. BED IN LOWEST POSITION. CALL LIGHT WITHIN REACH.
--- NOTE | 2018-04-02 07:30 | NUR ---
ENDORSED PT IN STABLE CONDITION TO AM NURSE.
[2018-04-02 07:52] LABS: ANION GAP 13.3 (8-16); CARBON DIOXIDE 25.6 mmol/L (21-32); CREATININE 1.2 mg/dL (0.7-1.3); POTASSIUM 4.9 mmol/L (3.5-5.1)
[2018-04-02 07:55] LABS: CHOL/HDL RATIO 4.3 (1-4.5); MAGNESIUM 2.1 mg/dL (1.8-2.4); PHOSPHORUS 3.7 mg/dL (2.5-4.9)
[2018-04-02 08:00] VITALS: BP 123/84
[2018-04-02] MEDS ORDERED: SODIUM PHOSPHATE 118 ML ENEM RC PRN (08:20)
[2018-04-02] MEDS: NACL 0.9% 1,000 ML IV SCH (08:44)
[2018-04-02] MEDS: chlorproMAZINE 25 MG TAB PO SCH ×2 (08:44→20:52)
[2018-04-02] MEDS: PANTOPRAZOLE 40 MG TABEC PO SCH (08:45)
[2018-04-02] MEDS: POLYETHYLENE GLYCOL 17 GM/PKT PO SCH (08:45)
[2018-04-02] MEDS: DOCUSATE SODIUM 100 MG GELCAP PO SCH (08:45)
[2018-04-02] MEDS: METOPROLOL 25 MG TAB PO SCH ×2 (08:45→20:42)
[2018-04-02] MEDS: FERROUS SULFATE 325 MG TABEC PO SCH (08:46)
[2018-04-02] MEDS: DIVALPROEX 250 MG TABEC PO SCH ×2 (08:46→20:52)
[2018-04-02] MEDS: METOCLOPRAMIDE 10 MG TAB PO SCH ×4 (08:47→20:52)
[2018-04-02] MEDS: GEMFIBROZIL 600 MG TAB PO SCH ×2 (08:47→20:53)
[2018-04-02] MEDS: ATORVASTATIN 20 MG TAB PO SCH (08:47)
[2018-04-02] MEDS: NIACIN 500 MG TAB PO SCH (08:47)
[2018-04-02] MEDS: TOPIRAMATE 25 MG TAB PO SCH ×2 (08:47→20:53)
[2018-04-02] MEDS: ASCORBIC ACID 500 MG TAB PO SCH (08:47)
[2018-04-02] MEDS: metFORMIN 500 MG TAB PO SCH (08:48)
[2018-04-02] MEDS: MULTIVIT/MIN/CA/FE/FA 1 TAB PO SCH (08:48)
--- NOTE | 2018-04-02 12:10 | NUR ---
Fleet Administrator Note: Per gastroenterology manager from [facility], Brenda Gipson they can't accommodate patient on abx ivs at their facility. Patient's pcp goes to the facility once a month to follow up with patient. Patient has continuos home O2 at [facility]. Brenda stated prior to hospital admission patient had no difficulty ambulating at their facility. She reported patient does not have any family, is not conserved. Patient's rn case management from [facility] is Imani Iqbal .
--- NOTE | 2018-04-02 12:18 | NUR ---
Employee Operations Examiner Note: I faxed inquiry to [facility]. Jazzy from [facility] came to evaluate patient, she stated patient has been accepted and may be transfer to their facility once medically stable, case assembler Brissa made aware.
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
--- NOTE | 2018-04-02 14:01 | NUR ---
LAST SPUTUM WAS REJECTED, SPUTUM RECOLLECTED AND SENT TO LAB.
[2018-04-02] MEDS ORDERED: INFLUENZA VIRUS VACCINE QUAD 0.5 ML SYR IMVAC PRN (14:35)
--- NOTE | 2018-04-02 14:52 | NUR ---
LAB CALLED FOR NEW ORDER FOR SPUTUM CULTURE. NOTIFIED DR RIOS WHO SAID IT'S OK, DON'T NEED IT. CALLED LAB BACK, DISCARD SAMPLE.
[2018-04-02 16:00] VITALS: BP 98/66
[2018-04-02] MEDS: EZETIMIBE 10 MG TAB PO SCH (16:52)
--- NOTE | 2018-04-02 17:35 | NUR ---
REINFORCED PT THAT HE WILL BE LEAVING ON THURSDAY, [facility] PT VERBALIZED UNDERSTANDING.
--- NOTE | 2018-04-02 19:30 | NUR ---
ENDORSE PT TO APPRENTICE JOCKEY RN. PT IN STABLE CONDITION.
--- NOTE | 2018-04-02 19:31 | NUR ---
RECEIVED REPORT FROM DAY SHIFT. PT IS A&O X 3. NO DISTRESS NOTED. PT ON RA. SKIN IS INTACT. ALL SAFETY MEASURES IN PLACE. PLAN OF CARE REVIEWED WITH PT. CALL LIGHT WITHIN REACH WILL CONTINUE TO MONITOR.
--- NOTE | 2018-04-02 20:57 | NUR ---
DUE MEDICATIONS GIVEN. PT TOLERATED WELL. MEDICATIONS GIVEN WITH APPLE SAUCE. PT DENIES ANY PAIN AT THIS TIME. VITAL SIGNS WITHIN NORMAL LIMITS. ALL SAFETY MEASURES IN PLACE WILL CONTINUE TO MONITOR.
[2018-04-02 23:57] VITALS: BP 100/60
--- NOTE | 2018-04-03 | NUR ---
PT VITAL SIGNS WITHIN NORMAL LIMITS. NO SIGNS OF DISTRESS. CALL LIGHT WITHIN REACH.
--- NOTE | 2018-04-03 02:23 | NUR ---
PT AWAKE WATCHING TELEVISION. NO SIGNS OF DISTRESS NOTED. SAFETY MEASURES IN PLACE. CALL LIGHT WITHIN REACH. WILL CONTINUE TO MONITOR.
[2018-04-03] MEDS: NACL 0.9% 1,000 ML IV SCH (03:36)
--- NOTE | 2018-04-03 03:51 | NUR ---
DUE MEDICATION GIVEN PT TOLERATED WELL. PT WATCHING TV. NO SIGNS OF DISTRESS NOTED.
[2018-04-03] MEDS: BLOOD GLUCOSE MONITORING 1 DEV DEV FS SCH ×4 (05:33→20:53)
--- NOTE | 2018-04-03 05:35 | NUR ---
DUE MEDICATIONS GIVEN PT TOLERATED WELL. PT IS RESTING QUIETLY IN BED. NO SIGNS OF DISTRESS. ALL SAFETY MEASURES IN PLACE. CALL LIGHT WITHIN REACH.
[2018-04-03] MEDS: LEVOTHYROXINE 0.088 MG TAB PO SCH (05:36)
[2018-04-03] MEDS: metroNIDAZOLE 500 MG/NS PREMIX 100 ML IV SCH ×3 (05:37→20:53)
[2018-04-03 07:08] LABS: BASOPHILS % (AUTO) 0.2 % (0.0-2.0); EOSINOPHILS # (AUTO) 0.1 K/uL (0-0.4); EOSINOPHILS % (AUTO) 0.9 % (0.0-4.0); HEMATOCRIT 33.7 % (36-52); LYMPHOCYTES # (AUTO) 2.3 K/uL (2.0-11.5); LYMPHOCYTES % (AUTO) 38.8 % (20.5-51.1); MEAN CORPUSCULAR HEMOGLOBIN 30 pg (27-31); MEAN CORPUSCULAR HGB CONC 33 g/dL (33-37); MEAN CORPUSCULAR VOLUME 92.6 fL (80-94); MONOCYTES # (AUTO) 0.7 K/uL (0.8-1.0); MONOCYTES % (AUTO) 11.7 % (1.7-9.3); NEUTROPHILS # (AUTO) 2.9 K/uL (1.8-7.7); NEUTROPHILS % (AUTO) 48.4 % (42.2-75.2); PLATELET COUNT (AUTO) 264 K/uL (140-450); RED BLOOD CELL COUNT(AUTO) 3.64 MIL/uL (4.20-6.10); RED CELL DISTRIBUTION WIDTH 14.7 % (11.6-13.7)
--- NOTE | 2018-04-03 07:19 | NUR ---
ENDORSED PT TO CLAUDIA. PT IN STABLE CONDITION.
--- NOTE | 2018-04-03 07:20 | NUR ---
RECEIVED REPORT FROM ORDER FULFILLMENT SPECIALIST NURSE, PT IS AAOX2, RESTING IN BED, SEMI FOWLERS POSITION, ON ROOM AIR, SKIN IS INTACT, NO S/S OF RESPIRATORY DISTRESS OR DISCOMFORT NOTED, AMBULATORY, IV IS ON THE LEFT IJ, PATENT, INTACT, FLUSHING WELL, DISCUSSED PLAN OF CARE WITH PT, PT VERBALIZED UNDERSTANDING, CALL LIGHT IS WITHIN REACH, SAFETY/FALL/SEIZURE PRECAUTIONS ARE IN PLACE, WILL CONTINUE TO MONITOR.
[2018-04-03 07:44] LABS: ANION GAP 11.1 (8-16); CARBON DIOXIDE 26.5 mmol/L (21-32); CREATININE 1.3 mg/dL (0.7-1.3); POTASSIUM 4.6 mmol/L (3.5-5.1)
--- NOTE | 2018-04-03 07:45 | NUR ---
PATIENT EATING AND VERBALLY REQUESTED TX BE ADMINISTERED AT A LATER TIME. NO SOB OR DISTRESS NOTED. Addendum: 04/03/18 at 0813 by Nivia RENTERIA NURSE AT BEDSIDE.
[2018-04-03 08:00] VITALS: BP 128/90
[2018-04-03] MEDS: ALBUTEROL SULFATE/IPRATROPIU 3 ML SOL IH SCH ×3 (08:40→19:20)
--- NOTE | 2018-04-03 08:40 | NUR ---
TX ADMINISTERED LATE PER PATIENT'S REQUEST IN FAVOR OF EATING BREAKFAST. NO SOB OR DISTRESS NOTES.
[2018-04-03] MEDS: PANTOPRAZOLE 40 MG TABEC PO SCH (09:45)
[2018-04-03] MEDS: METOPROLOL 25 MG TAB PO SCH ×2 (09:46→20:56)
[2018-04-03] MEDS: chlorproMAZINE 25 MG TAB PO SCH ×2 (09:46→20:54)
[2018-04-03] MEDS: NIACIN 500 MG TAB PO SCH (09:47)
[2018-04-03] MEDS: GEMFIBROZIL 600 MG TAB PO SCH ×2 (09:47→21:01)
[2018-04-03] MEDS: ATORVASTATIN 20 MG TAB PO SCH (09:47)
[2018-04-03] MEDS: DIVALPROEX 250 MG TABEC PO SCH ×2 (09:48→20:54)
[2018-04-03] MEDS: METOCLOPRAMIDE 10 MG TAB PO SCH ×5 (09:48→21:00)
[2018-04-03] MEDS: metFORMIN 500 MG TAB PO SCH (09:49)
[2018-04-03] MEDS: DOCUSATE SODIUM 100 MG GELCAP PO SCH (09:49)
[2018-04-03] MEDS: TOPIRAMATE 25 MG TAB PO SCH ×2 (09:49→20:54)
[2018-04-03] MEDS: FERROUS SULFATE 325 MG TABEC PO SCH (09:49)
[2018-04-03] MEDS: ASCORBIC ACID 500 MG TAB PO SCH (09:49)
[2018-04-03] MEDS: POLYETHYLENE GLYCOL 17 GM/PKT PO SCH (09:50)
[2018-04-03] MEDS: MULTIVIT/MIN/CA/FE/FA 1 TAB PO SCH (10:13)
[2018-04-03] MEDS ORDERED: METOCLOPRAMIDE 10 MG TAB PO SCH (13:00)
--- NOTE | 2018-04-03 14:02 | NUR ---
TX LATE DUE TO TRANSPORT FROM ER TO CT OF A TGEYP-MS-HDYP PT.
--- NOTE | 2018-04-03 14:30 | NUR ---
REGLAN 10MG NOT ADMINISTERED AT 1300 BECAUSE REGLAN 5MG WAS ADMINISTERED AT 1249.
[2018-04-03 16:00] VITALS: BP 100/68
[2018-04-03] MEDS: EZETIMIBE 10 MG TAB PO SCH (17:23)
--- NOTE | 2018-04-03 19:26 | NUR ---
ENDORSED PATIENT TO RHINOLOGIST NURSE. PATIENT STABLE AT THIS TIME. ALL NEEDS MET.
--- NOTE | 2018-04-03 19:27 | NUR ---
RECEIVED REPORT FROM DAY SHIFT NURSE. PT SITTING IN BED. AAOX2. NO C/O PAIN OR SOB. ON ROOM AIR. SKIN INTACT. IV TO LEFT IJ, PATENT AND INTACT. PT IS AMBULATORY. DISCUSSED PLAN OF CARE, PT VERBALIZED UNDERSTANDING. SAFETY AND SEIZURE PRECAUTION IN PLACE. CALL LIGHT WITHIN REACH.
--- NOTE | 2018-04-03 21:00 | NUR ---
METOCLOPRAMIDE 10 MG DUE FOR [address] BECKWITH D/T LAST DOSE GIVEN AT 1723.
--- NOTE | 2018-04-03 23:20 | NUR ---
PT ASKED FOR SNACK. SNACK PROVIDED. NO C/O PAIN OR DISCOMFORT.
[2018-04-04] VITALS: BP 110/72
--- NOTE | 2018-04-04 02:10 | NUR ---
PT LYING IN BED, AWAKE. NO C/O PAIN OR DISCOMFORT. NO RESP DISTRESS.
[2018-04-04] MEDS: metroNIDAZOLE 500 MG/NS PREMIX 100 ML IV SCH ×3 (04:44→21:57)
--- NOTE | 2018-04-04 04:47 | NUR ---
PT LYING IN BED, WATCHING TV. DENIES PAIN. ALL NEEDS MET AT THIS TIME. CALL LIGHT WITHIN REACH.
[2018-04-04] MEDS: LEVOTHYROXINE 0.088 MG TAB PO SCH (06:11)
[2018-04-04] MEDS: BLOOD GLUCOSE MONITORING 1 DEV DEV FS SCH ×4 (06:30→21:00)
[2018-04-04 06:32] LABS: BASOPHILS % (AUTO) 0.5 % (0.0-2.0); EOSINOPHILS # (AUTO) 0.1 K/uL (0-0.4); EOSINOPHILS % (AUTO) 0.8 % (0.0-4.0); HEMATOCRIT 37.7 % (36-52); HEMOGLOBIN 12.5 g/dL (12.0-18.0); LYMPHOCYTES # (AUTO) 2.8 K/uL (2.0-11.5); LYMPHOCYTES % (AUTO) 39.5 % (20.5-51.1); MEAN CORPUSCULAR HEMOGLOBIN 31 pg (27-31); MEAN CORPUSCULAR HGB CONC 33 g/dL (33-37); MEAN CORPUSCULAR VOLUME 92.3 fL (80-94); MONOCYTES # (AUTO) 0.7 K/uL (0.8-1.0); MONOCYTES % (AUTO) 10.4 % (1.7-9.3); NEUTROPHILS # (AUTO) 3.4 K/uL (1.8-7.7); NEUTROPHILS % (AUTO) 48.8 % (42.2-75.2); PLATELET COUNT (AUTO) 308 K/uL (140-450); RED BLOOD CELL COUNT(AUTO) 4.08 MIL/uL (4.20-6.10); RED CELL DISTRIBUTION WIDTH 14.9 % (11.6-13.7)
--- NOTE | 2018-04-04 06:34 | NUR ---
BLOOD SUGAR CHECKED 98. NO INSULIN COVERAGE NEEDED.
--- NOTE | 2018-04-04 07:05 | NUR ---
ENDORSED PT TO DAY SHIFT NURSE. PT IN STABLE CONDITION.
--- NOTE | 2018-04-04 07:10 | NUR ---
RECEIVED REPORT FROM GERM DRIER NURSE, PT IS AAOX2, PT IS SITTING ON CHAIR AT BEDSIDE, ON ROOM AIR, SKIN IS INTACT, NO S/S OF RESPIRATORY DISTRESS OR DISCOMFORT NOTED, AMBULATORY, IV IS ON THE LEFT IJ, PATENT, INTACT, FLUSHING WELL, DISCUSSED PLAN OF CARE WITH PT, PT VERBALIZED UNDERSTANDING, CALL LIGHT IS WITHIN REACH, SAFETY/FALL/SEIZURE PRECAUTIONS ARE IN PLACE, WILL CONTINUE TO MONITOR.
[2018-04-04] MEDS: ALBUTEROL SULFATE/IPRATROPIU 3 ML SOL IH SCH ×3 (07:33→19:15)
[2018-04-04 07:53] VITALS: BP 114/81
[2018-04-04 07:53] LABS: ANION GAP 13.6 (8-16); CARBON DIOXIDE 24.4 mmol/L (21-32); CREATININE 1.2 mg/dL (0.7-1.3)
--- NOTE | 2018-04-04 08:40 | NUR ---
PATIENT GIVEN 0900 SCHEDULED MEDS. MEDS WERE TAKEN WITH PUDDING. TOLERATED WELL. PATIENT LEFT ON BEDSIDE CHAIR. CALL LIGHT WITHIN REACH. ALL NEEDS MET AT THIS TIME.
[2018-04-04] MEDS: DOCUSATE SODIUM 100 MG GELCAP PO SCH (09:42)
[2018-04-04] MEDS: NIACIN 500 MG TAB PO SCH (09:43)
[2018-04-04] MEDS: DIVALPROEX 250 MG TABEC PO SCH ×2 (09:43→21:56)
[2018-04-04] MEDS: TOPIRAMATE 25 MG TAB PO SCH ×2 (09:44→21:57)
[2018-04-04] MEDS: FERROUS SULFATE 325 MG TABEC PO SCH (09:44)
[2018-04-04] MEDS: ASCORBIC ACID 500 MG TAB PO SCH (09:44)
[2018-04-04] MEDS: GEMFIBROZIL 600 MG TAB PO SCH ×2 (09:44→22:01)
[2018-04-04] MEDS: chlorproMAZINE 25 MG TAB PO SCH ×2 (09:45→21:57)
[2018-04-04] MEDS: ATORVASTATIN 20 MG TAB PO SCH (09:45)
[2018-04-04] MEDS: METOPROLOL 25 MG TAB PO SCH ×2 (09:45→21:57)
[2018-04-04] MEDS: metFORMIN 500 MG TAB PO SCH (09:46)
[2018-04-04] MEDS: METOCLOPRAMIDE 10 MG TAB PO SCH ×4 (09:46→21:57)
[2018-04-04] MEDS: PANTOPRAZOLE 40 MG TABEC PO SCH (09:46)
[2018-04-04] MEDS: POLYETHYLENE GLYCOL 17 GM/PKT PO SCH (09:47)
[2018-04-04] MEDS: MULTIVIT/MIN/CA/FE/FA 1 TAB PO SCH (09:50)
--- NOTE | 2018-04-04 11:05 | NUR ---
PT SITTING AT BEDSIDE, WATCHING TV. DENIES PAIN. ALL NEEDS MET AT THIS TIME. CALL LIGHT WITHIN REACH.
--- NOTE | 2018-04-04 13:50 | NUR ---
PATIENT ASLEEP IN BED. TWO BED RAILS UP, BED IN LOW POSITION. CALL LIGHT WITHIN REACH. ALL NEEDS MET AT THIS TIME.
[2018-04-04 16:00] VITALS: BP 102/54
--- NOTE | 2018-04-04 16:54 | NUR ---
PATIENT SLEEPING IN BED. TWO SIDE RAILS UP AND BED IN LOWEST POSITION. ALL NEEDS ARE MET AT THIS TIME.
[2018-04-04] MEDS: EZETIMIBE 10 MG TAB PO SCH (17:11)
--- NOTE | 2018-04-04 17:15 | NUR ---
PATIENT WAS WOKEN UP TO TAKE SCHEDULED MEDS. MEDS TOLERATED WELL, TAKEN WITH MILK. PATIENT FELL BACK TO SLEEP RIGHT AFTER. TWO BED RAILS UP, BED IN LOW POSITION, CALL LIGHT WITHIN REACH. ALL NEEDS MET AT THIS TIME.
--- NOTE | 2018-04-04 19:30 | NUR ---
RECEIVED REPORT FROM DAY SHIFT NURSE. PT LYING IN BED. AAOX2. NO C/O PAIN OR DISCOMFORT. NO RESP DISTRESS NOTED. PT IS ON ROOM AIR. SKIN INTACT. IV TO LEFT IJ, PATENT AND INTACT. PT IS AMBULATORY. DISCUSSED PLAN OF CARE, PT VERBALIZED UNDERSTANDING. SAFETY AND SEIZURE PRECAUTION IN PLACE. CALL LIGHT WITHIN REACH.
--- NOTE | 2018-04-04 19:41 | NUR ---
ENDORSED PATIENT TO SPORT PSYCHOLOGIST NURSE. PATIENT STABLE AT THIS TIME. ALL NEEDS MET.
--- NOTE | 2018-04-04 21:57 | NUR ---
DUE MEDS GIVEN. PT TOLERATED WELL. BLOOD SUGAR CHECKED 110.
--- NOTE | 2018-04-04 22:30 | NUR ---
PT ASKED FOR SNACK. SNACK PROVIDED. ALL NEEDS MET AT THIS TIME.
[2018-04-05] VITALS: BP 110/56
--- NOTE | 2018-04-05 01:15 | NUR ---
PT LYING IN BED AWAKE. NO C/O PAIN OR SOB. CALL LIGHT WITHIN REACH.
--- NOTE | 2018-04-05 03:50 | NUR ---
PT RESTING IN BED WITH EYES CLOSED. RESP EVEN AND UNLABORED. NO S/S OF PAIN OR DISCOMFORT.
[2018-04-05] MEDS: metroNIDAZOLE 500 MG/NS PREMIX 100 ML IV SCH ×2 (05:11→12:45)
--- NOTE | 2018-04-05 05:30 | NUR ---
PT IN BED, SITTING. NO C/O PAIN OR DISCOMFORT. FALL PRECAUTION IN PLACE. CALL LIGHT WITHIN REACH.
[2018-04-05] MEDS: LEVOTHYROXINE 0.088 MG TAB PO SCH (05:45)
[2018-04-05] MEDS: BLOOD GLUCOSE MONITORING 1 DEV DEV FS SCH ×2 (06:25→11:52)
[2018-04-05] MEDS: ALBUTEROL SULFATE/IPRATROPIU 3 ML SOL IH SCH ×2 (06:59→13:12)
--- NOTE | 2018-04-05 07:27 | NUR ---
ENDORSED PT TO DAY SHIFT NURSE. PT IN STABLE CONDITION.
--- NOTE | 2018-04-05 07:30 | NUR ---
RECEIVED BEDSIDE REPORT FROM LOAD OUT PERSON NURSE. PATIENT IS AWAKE, ALERT AND ORIENTEDX2. NO SIGNS OF DISTRESS ON RA. IV ON L IJ 20G SALINE LOCK. CLEAN, DRY AND INTACT. FALL RISK PROTOCOL IN PLACE. PATIENT AMBULATES W ASSIST. PATIENT CONTINENT. BED IN LOW POSITION. CALL LIGHT WITHIN REACH.
[2018-04-05 08:00] VITALS: BP 123/83
--- NOTE | 2018-04-05 08:00 | NUR ---
PATIENT REQUESTING PUDDING AT THIS TIME. WILL GET HIM PUDDING
[2018-04-05] MEDS ORDERED: LACT10CA1 PO (09:06)
[2018-04-05] MEDS ORDERED: METF500T PO (09:06)
[2018-04-05] MEDS ORDERED: HUMSLIDE SUBQ (09:06)
[2018-04-05] MEDS ORDERED: LEVO0.087 PO (09:06)
[2018-04-05] MEDS ORDERED: METR500T1 PO (09:06)
[2018-04-05] MEDS ORDERED: ROC2I IV (09:06)
[2018-04-05 09:18] LABS: BASOPHILS % (AUTO) 0.4 % (0.0-2.0); EOSINOPHILS % (AUTO) 0.6 % (0.0-4.0); HEMATOCRIT 34.2 % (36-52); HEMOGLOBIN 11.3 g/dL (12.0-18.0); LYMPHOCYTES # (AUTO) 2.7 K/uL (2.0-11.5); LYMPHOCYTES % (AUTO) 35.3 % (20.5-51.1); MEAN CORPUSCULAR HEMOGLOBIN 30 pg (27-31); MEAN CORPUSCULAR HGB CONC 33 g/dL (33-37); MEAN CORPUSCULAR VOLUME 92.2 fL (80-94); MONOCYTES # (AUTO) 0.7 K/uL (0.8-1.0); MONOCYTES % (AUTO) 8.8 % (1.7-9.3); NEUTROPHILS # (AUTO) 4.2 K/uL (1.8-7.7); NEUTROPHILS % (AUTO) 54.9 % (42.2-75.2); PLATELET COUNT (AUTO) 289 K/uL (140-450); RED BLOOD CELL COUNT(AUTO) 3.71 MIL/uL (4.20-6.10); RED CELL DISTRIBUTION WIDTH 14.1 % (11.6-13.7); WHITE BLOOD COUNT (AUTO) 7.6 K/uL (4.8-10.8)
[2018-04-05 09:30] LABS: ANION GAP 13.7 (8-16); CARBON DIOXIDE 23.4 mmol/L (21-32); CREATININE 1.2 mg/dL (0.7-1.3); POTASSIUM 4.1 mmol/L (3.5-5.1)
[2018-04-05] MEDS: DOCUSATE SODIUM 100 MG GELCAP PO SCH (10:01)
[2018-04-05] MEDS: PANTOPRAZOLE 40 MG TABEC PO SCH (10:03)
[2018-04-05] MEDS: TOPIRAMATE 25 MG TAB PO SCH (10:03)
[2018-04-05] MEDS: DIVALPROEX 250 MG TABEC PO SCH (10:03)
[2018-04-05] MEDS: METOCLOPRAMIDE 10 MG TAB PO SCH ×2 (10:04→12:45)
[2018-04-05] MEDS: chlorproMAZINE 25 MG TAB PO SCH (10:04)
[2018-04-05] MEDS: metFORMIN 500 MG TAB PO SCH (10:04)
[2018-04-05] MEDS: FERROUS SULFATE 325 MG TABEC PO SCH (10:04)
[2018-04-05] MEDS: NIACIN 500 MG TAB PO SCH (10:05)
[2018-04-05] MEDS: ATORVASTATIN 20 MG TAB PO SCH (10:05)
[2018-04-05] MEDS: METOPROLOL 25 MG TAB PO SCH (10:06)
[2018-04-05] MEDS: ASCORBIC ACID 500 MG TAB PO SCH (10:06)
[2018-04-05] MEDS: GEMFIBROZIL 600 MG TAB PO SCH (10:08)
[2018-04-05] MEDS: POLYETHYLENE GLYCOL 17 GM/PKT PO SCH (10:08)
[2018-04-05] MEDS: MULTIVIT/MIN/CA/FE/FA 1 TAB PO SCH (10:10)
--- NOTE | 2018-04-05 10:11 | NUR ---
ADMINISTERED MEDS. PATIENT TOLERATED WELL. BED IN LOW POSITION. CALL LIGHT WITHIN REACH. WILL CONTINUE TO MONITOR
--- NOTE | 2018-04-05 12:33 | NUR ---
I CALLED [facility] AND SPOKE WITH MAGGI. THE PATIENT CAN GO TO ROOM 226A UNDER DR. MANNING. [facility] WILL ARRANGE TRANSPORT. I GO A CALL BACK FROM [facility], THE PATIENT WILL BE PICKED UP BY [facility] AT 2P.M. I INFORMED SONYA HANCOCK.
--- NOTE | 2018-04-05 12:53 | NUR ---
ADMINISTERED MEDS. PATIENT TOLERATED WELL. WILL CONTINUE TO MONITOR THE PATIENT
--- NOTE | 2018-04-05 13:45 | NUR ---
GAVE REPORT TO SHAY NURSE AT [facility]. ANSWERED ALL QUESTIONS AT THIS TIME. GAVE CALL BACK NUMBER
--- NOTE | 2018-04-05 14:15 | NUR ---
ADMINISTERED FLU VACCINE. PATIENT TOLERATED WELL. EDUCATED PATIENT ON DISEASE PROCESS, ABN S/SX WHEN TO GO TO THE ER, EDUCATED ON GOING TO SNF FOR ANTIBIOTICS, EDUCATED ON FOLLOW UP W PCP. PATIENT VERBALIZED UNDERSTANDING. PATIENT HAS MENTAL DELAY AND UNABLE TO SIGN PAPERWORK. IV STILL ON FOR [place].
--- NOTE | 2018-04-05 15:35 | NUR ---
PATIENT LEFT IN STABLE CONDITION IN WHEELCHAIR W [facility]. ID BANDS REMOVED
== END 2018-04-05 15:35 | DRG 871 ==
LOC: MED 21:44 → MTU 04-01 01:20
PROVIDERS: ADMIT General Practice; ATTEND General Practice
DX: A41.9 Sepsis, unspecified organism (principal); J69.0 Pneumonitis due to inhalation of food and vomit; K85.90 Acute pancreatitis without necrosis or infection, unspecified; J44.1 Chronic obstructive pulmonary disease with (acute) exacerbation; D68.59 Other primary thrombophilia; M48.54XA Collapsed vertebra, not elsewhere classified, thoracic region, initial encounter for fracture; E11.9 Type 2 diabetes mellitus without complications; K21.9 Gastro-esophageal reflux disease without esophagitis; E03.9 Hypothyroidism, unspecified; K59.09 Other constipation; E11.69 Type 2 diabetes mellitus with other specified complication; D71 Functional disorders of polymorphonuclear neutrophils; R16.1 Splenomegaly, not elsewhere classified; F79 Unspecified intellectual disabilities; F29 Unspecified psychosis not due to a substance or known physiological condition; F63.9 Impulse disorder, unspecified; G40.909 Epilepsy, unspecified, not intractable, without status epilepticus; I10 Essential (primary) hypertension; E78.5 Hyperlipidemia, unspecified; E66.3 Overweight; Z68.25 Body mass index [BMI] 25.0-25.9, adult; D50.9 Iron deficiency anemia, unspecified; E86.0 Dehydration; Z71.3 Dietary counseling and surveillance; Z23 Encounter for immunization; Z88.8 Allergy status to other drugs, medicaments and biological substances
CPT/HCPCS: 36415; 36600; 71045; 76700; 80048; 80053; 80305; 81003; 82150; 82803; 82948; 83036; 83540; 83605; 83690; 83735; 84100; 84134; 84436; 84443; 85025; 85610; 85730; 87040; 87070; 87081; 87086; 87205; 90658; 92610; 93005; 94640; 99285; J0696; J1815; J3490; J7030; J7060; J7620; J8597; Q0092

== ENCOUNTER 2018-04-30 16:44 | Inpatient (IN) | payer OTHER, MEDICAID ==
[~2018-04-30] VITALS: Ht 175.3 cm; Wt 80.7 kg
[~2018-04-30 16:44] MED LIST changes: -CLIN300C2 PO; -FISH100053 PO; -FLOR250 PO; -FLUC200T PO; +HUMSLIDE SUBQ; -LACT1.4C PO; +LACT10CA1 PO; +LEVO0.087 PO; -LEVO750T2 PO; +METO25TA PO; +METR500T1 PO; +ROC2I IV; -SYN.075 PO
[2018-04-30 16:53] VITALS: BP 106/73
[2018-04-30] MEDS ORDERED: NACL 0.9% 1,000 ML IV ONE (17:00)
[2018-04-30] MEDS ORDERED: PIPERACILLIN/TAZOBACTAM 3.375 GM in DEXTROSE 5% 50 ML IV ONE (17:25)
[2018-04-30 17:39] LABS: BASOPHILS % (AUTO) 0.1 % (0.0-2.0); EOSINOPHILS % (AUTO) 0.3 % (0.0-4.0); HEMOGLOBIN 10.6 g/dL (12.0-18.0); LYMPHOCYTES # (AUTO) 2.8 K/uL (2.0-11.5); LYMPHOCYTES % (AUTO) 42.9 % (20.5-51.1); MEAN CORPUSCULAR HEMOGLOBIN 30 pg (27-31); MEAN CORPUSCULAR HGB CONC 32 g/dL (33-37); MEAN CORPUSCULAR VOLUME 94.2 fL (80-94); MONOCYTES # (AUTO) 0.8 K/uL (0.8-1.0); MONOCYTES % (AUTO) 12.9 % (1.7-9.3); NEUTROPHILS # (AUTO) 2.8 K/uL (1.8-7.7); NEUTROPHILS % (AUTO) 43.8 % (42.2-75.2); PLATELET COUNT (AUTO) 295 K/uL (140-450); RED CELL DISTRIBUTION WIDTH 14.1 % (11.6-13.7); WHITE BLOOD COUNT (AUTO) 6.4 K/uL (4.8-10.8)
[2018-04-30 17:49] LABS: ANION GAP 12.2 (8-16); CARBON DIOXIDE 26.2 mmol/L (21-32); CREATININE 1.5 mg/dL (0.7-1.3); POTASSIUM 4.4 mmol/L (3.5-5.1)
[2018-04-30] MEDS ORDERED: HYDROcodone/APAP 7.5/325 MG 1 TAB PO PRN (17:50)
[2018-04-30] MEDS ORDERED: ACETAMINOPHEN 325 MG TAB PO PRN (17:50)
[2018-04-30] MEDS ORDERED: ONDANSETRON 4 MG/2 ML VIAL IVP PRN (17:50)
[2018-04-30 17:55] LABS: ALBUMIN 3.6 g/dL (3.4-5.0); TOTAL BILIRUBIN 0.2 mg/dL (0.0-1.0)
[2018-04-30] MEDS ORDERED: PIPERACILLIN/TAZOBACTAM 3.375 GM VIAL IV ONE (17:59)
[2018-04-30 18:11] LABS: PROTHROMBIN TIME 9.5 secs (10.8-13.4)
[2018-04-30] MEDS ORDERED: INSULIN LISPRO SLIDING SCALE 100 UNITS/ML VIAL SUBQ PRN ×3 (18:15→19:15)
[2018-04-30] MEDS ORDERED: ACETAMINOPHEN 325 MG TAB PO SCH (18:15)
[2018-04-30] MEDS ORDERED: NITROGLYCERIN 0.4 MG TAB SL PRN (18:15)
[2018-04-30] MEDS ORDERED: MAGNESIUM HYDROXIDE 2400 MG/30 ML UDC PO PRN (18:15)
[2018-04-30 18:47] LABS: CHOL/HDL RATIO 4.1 (1-4.5); FREE T4 (FREE THYROXINE) 0.64 ng/dL (0.76-1.46); MAGNESIUM 2.2 mg/dL (1.8-2.4); PHOSPHORUS 4.1 mg/dL (2.5-4.9); THYROID STIMULATING HORMONE 2.52 uIU/mL (0.34-3.74)
[2018-04-30 18:55] LABS: APPEARANCE,URINE CLEAR (CLEAR); BILIRUBIN,URINE NEGATIVE (NEGATIVE); BLOOD, URINE NEGATIVE (NEGATIVE); COLOR,URINE YELLOW (YELLOW); LEUKOCYTE ESTERASE ,URINE NEGATIVE (NEGATIVE); NITRITE, URINE NEGATIVE (NEGATIVE); PH,URINE 6.5 (5.0-9.0); UGLUCOSE NEGATIVE (NEGATIVE)
[2018-04-30] MEDS ORDERED: DEXTROSE 50% 50 ML SYR IVP PRN (18:55)
[2018-04-30 18:57] LABS: BARBITURATE, URINE NEG. ng/ml (NEG <=200); BENZODIAZEPINE, URINE NEG. ng/mL (NEG <=200); CANNABINOID, URINE NEG. ng/mL (NEG <=50); COCAINE, URINE NEG. ng/mL (NEG <=300); OPIATE, URINE NEG. ng/mL (NEG <=2000); PHENCYCLIDINE SCREEN,URINE NEG. ng/mL (NEG <=25)
[2018-04-30] MEDS ORDERED: IPRATROPIUM 0.02% 0.5 MG/2.5 ML NEBU INH SCH (19:30)
[2018-04-30 20:00] VITALS: BP 107/61
[2018-04-30] MEDS: ALBUTEROL SULFATE/IPRATROPIU 3 ML SOL IH PRN (20:03)
[2018-04-30] MEDS ORDERED: DOCUSATE SODIUM 100 MG GELCAP PO SCH (21:00)
[2018-04-30] MEDS ORDERED: DIVALPROEX SODIUM 750 MG PO SCH (21:00)
[2018-04-30] MEDS ORDERED: ATORVASTATIN 20 MG TAB PO SCH (21:00)
[2018-04-30] MEDS ORDERED: NON-FORMULARY ITEM (Atorvastatin Calcium 1 TAB) PO SCH (21:00)
[2018-04-30] MEDS: DIVALPROEX 250 MG, DIVALPROEX 500 MG PO SCH ×2 (21:12)
[2018-04-30] MEDS: TOPIRAMATE 25 MG TAB PO SCH (21:13)
[2018-04-30] MEDS: chlorproMAZINE 25 MG TAB PO SCH (21:13)
[2018-04-30] MEDS: ATORVASTATIN 20 MG TAB PO SCH (21:13)
[2018-04-30] MEDS: METOCLOPRAMIDE 10 MG TAB PO SCH (21:13)
[2018-04-30] MEDS: METOPROLOL 25 MG TAB PO SCH (21:14)
[2018-04-30] MEDS: BLOOD GLUCOSE MONITORING 1 DEV DEV FS SCH (21:27)
[2018-05-01] VITALS: BP 123/77
[2018-05-01 04:00] VITALS: BP 128/83
[2018-05-01] MEDS: LEVOTHYROXINE 0.088 MG TAB PO SCH (05:31)
[2018-05-01] MEDS: PIPER/TAZO 3.375GM/D5W PREMIX 50 ML IV SCH ×3 (05:31→20:29)
[2018-05-01] MEDS: BLOOD GLUCOSE MONITORING 1 DEV DEV FS SCH ×2 (05:45→11:51)
[2018-05-01] MEDS ORDERED: LEVOTHYROXINE SODIUM PO SCH (06:30)
[2018-05-01 07:22] LABS: FERRITIN 253 ng/mL (30-400); FOLIC ACID > 20.00 ng/mL (>3.0); TRANSFERRIN 243 mg/dL (200-370)
[2018-05-01] MEDS: ALBUTEROL SULFATE/IPRATROPIU 3 ML SOL IH SCH ×3 (07:24→19:01)
[2018-05-01 07:29] LABS: BASOPHILS % (AUTO) 0.2 % (0.0-2.0); EOSINOPHILS % (AUTO) 0.8 % (0.0-4.0); HEMATOCRIT 37.8 % (36-52); HEMOGLOBIN 12.1 g/dL (12.0-18.0); LYMPHOCYTES % (AUTO) 32.3 % (20.5-51.1); MEAN CORPUSCULAR HEMOGLOBIN 30 pg (27-31); MEAN CORPUSCULAR HGB CONC 32 g/dL (33-37); MONOCYTES # (AUTO) 0.7 K/uL (0.8-1.0); MONOCYTES % (AUTO) 11.2 % (1.7-9.3); NEUTROPHILS # (AUTO) 3.4 K/uL (1.8-7.7); NEUTROPHILS % (AUTO) 55.5 % (42.2-75.2); PLATELET COUNT (AUTO) 340 K/uL (140-450); RED BLOOD CELL COUNT(AUTO) 3.98 MIL/uL (4.20-6.10); RED CELL DISTRIBUTION WIDTH 14.1 % (11.6-13.7); WHITE BLOOD COUNT (AUTO) 6.1 K/uL (4.8-10.8)
[2018-05-01 07:32] LABS: ANION GAP 10.7 (8-16); CARBON DIOXIDE 30.3 mmol/L (21-32); CREATININE 1.3 mg/dL (0.7-1.3)
[2018-05-01 07:45] LABS: MAGNESIUM 2.2 mg/dL (1.8-2.4); PHOSPHORUS 3.4 mg/dL (2.5-4.9)
[2018-05-01 08:00] VITALS: BP 124/81
[2018-05-01] MEDS ORDERED: FERROUS SULFATE 325 MG TABEC PO SCH (09:00)
[2018-05-01] MEDS ORDERED: PANTOPRAZOLE 40 MG TABEC PO SCH (09:00)
[2018-05-01] MEDS ORDERED: ASCORBIC ACID 500 MG TAB PO SCH ×2 (09:00)
[2018-05-01] MEDS ORDERED: ASPIRIN 81 MG TAB.CHEW PO SCH (09:00)
[2018-05-01] MEDS ORDERED: metFORMIN 500 MG TAB PO SCH (09:00)
[2018-05-01] MEDS: DIVALPROEX 250 MG, DIVALPROEX 500 MG PO SCH ×4 (09:53→20:33)
[2018-05-01] MEDS: METOCLOPRAMIDE 10 MG TAB PO SCH ×4 (09:54→20:33)
[2018-05-01] MEDS: chlorproMAZINE 25 MG TAB PO SCH ×2 (09:54→20:32)
[2018-05-01] MEDS: DOCUSATE SODIUM 250 MG GELCAP PO SCH (09:54)
[2018-05-01] MEDS: TOPIRAMATE 25 MG TAB PO SCH ×2 (09:55→20:32)
[2018-05-01] MEDS: METOPROLOL 25 MG TAB PO SCH (09:55)
[2018-05-01] MEDS: LISINOPRIL 5 MG TAB PO SCH (09:55)
[2018-05-01] MEDS: LACTOBACILLUS RHAMNOSUS GG 1 EACH CAP PO SCH (09:56)
[2018-05-01] MEDS: ALBUTEROL SULFATE/IPRATROPIU 3 ML SOL IH PRN (15:02)
[2018-05-01 16:00] VITALS: BP 102/51
[2018-05-01] MEDS: ATORVASTATIN 20 MG TAB PO SCH (20:32)
[2018-05-01] MEDS: FAMOTIDINE 20 MG TAB PO SCH (20:32)
[2018-05-02] VITALS: BP 107/60
[2018-05-02] MEDS: LEVOTHYROXINE 0.088 MG TAB PO SCH (05:40)
[2018-05-02] MEDS: PIPER/TAZO 3.375GM/D5W PREMIX 50 ML IV SCH ×3 (05:43→20:38)
[2018-05-02 06:47] LABS: BASOPHILS % (AUTO) 0.6 % (0.0-2.0); EOSINOPHILS # (AUTO) 0.1 K/uL (0-0.4); EOSINOPHILS % (AUTO) 1.1 % (0.0-4.0); HEMATOCRIT 35.2 % (36-52); HEMOGLOBIN 11.3 g/dL (12.0-18.0); LYMPHOCYTES # (AUTO) 1.7 K/uL (2.0-11.5); LYMPHOCYTES % (AUTO) 33.1 % (20.5-51.1); MEAN CORPUSCULAR HEMOGLOBIN 31 pg (27-31); MEAN CORPUSCULAR HGB CONC 32 g/dL (33-37); MEAN CORPUSCULAR VOLUME 95.2 fL (80-94); MONOCYTES # (AUTO) 0.7 K/uL (0.8-1.0); MONOCYTES % (AUTO) 14.1 % (1.7-9.3); NEUTROPHILS # (AUTO) 2.6 K/uL (1.8-7.7); NEUTROPHILS % (AUTO) 51.1 % (42.2-75.2); PLATELET COUNT (AUTO) 334 K/uL (140-450); RED BLOOD CELL COUNT(AUTO) 3.69 MIL/uL (4.20-6.10); RED CELL DISTRIBUTION WIDTH 14.1 % (11.6-13.7); WHITE BLOOD COUNT (AUTO) 5.2 K/uL (4.8-10.8)
[2018-05-02 06:58] LABS: ANION GAP 13.2 (8-16); CARBON DIOXIDE 30.8 mmol/L (21-32); CREATININE 1.3 mg/dL (0.7-1.3)
[2018-05-02 07:08] LABS: MAGNESIUM 2.1 mg/dL (1.8-2.4); PHOSPHORUS 4.3 mg/dL (2.5-4.9)
[2018-05-02] MEDS: ALBUTEROL SULFATE/IPRATROPIU 3 ML SOL IH SCH ×3 (07:10→19:11)
[2018-05-02 08:00] VITALS: BP 128/82
[2018-05-02] MEDS: DOCUSATE SODIUM 250 MG GELCAP PO SCH (09:46)
[2018-05-02] MEDS: DIVALPROEX 250 MG, DIVALPROEX 500 MG PO SCH ×4 (09:47→20:39)
[2018-05-02] MEDS: LACTOBACILLUS RHAMNOSUS GG 1 EACH CAP PO SCH (09:47)
[2018-05-02] MEDS: METOCLOPRAMIDE 10 MG TAB PO SCH ×4 (09:48→20:39)
[2018-05-02] MEDS: TOPIRAMATE 25 MG TAB PO SCH ×2 (09:48→20:39)
[2018-05-02] MEDS: FAMOTIDINE 20 MG TAB PO SCH ×2 (09:48→20:39)
[2018-05-02] MEDS: LISINOPRIL 5 MG TAB PO SCH (09:49)
[2018-05-02] MEDS: chlorproMAZINE 25 MG TAB PO SCH ×2 (10:03→20:40)
[2018-05-02] MEDS: CHLORHEXADINE GLUC 2% CLOTH TP SCH (14:30)
[2018-05-02] MEDS ORDERED: MUPIROCIN CA NASAL 2% 1GM TUBE NS SCH (14:30)
[2018-05-02 16:00] VITALS: BP 103/72
[2018-05-02] MEDS: MUPIROCIN CA NASAL 2% 1GM TUBE NS SCH (16:52)
[2018-05-02] MEDS: ATORVASTATIN 20 MG TAB PO SCH (20:39)
[2018-05-03 00:07] VITALS: BP 127/66
[2018-05-03] MEDS: PIPER/TAZO 3.375GM/D5W PREMIX 50 ML IV SCH ×3 (05:53→21:03)
[2018-05-03] MEDS: LEVOTHYROXINE 0.088 MG TAB PO SCH (05:53)
[2018-05-03 06:48] LABS: BASOPHILS % (AUTO) 0.2 % (0.0-2.0); EOSINOPHILS % (AUTO) 0.5 % (0.0-4.0); HEMATOCRIT 37.6 % (36-52); HEMOGLOBIN 12.2 g/dL (12.0-18.0); LYMPHOCYTES # (AUTO) 2.6 K/uL (2.0-11.5); LYMPHOCYTES % (AUTO) 37.1 % (20.5-51.1); MEAN CORPUSCULAR HEMOGLOBIN 31 pg (27-31); MEAN CORPUSCULAR HGB CONC 33 g/dL (33-37); MEAN CORPUSCULAR VOLUME 93.9 fL (80-94); MONOCYTES # (AUTO) 0.7 K/uL (0.8-1.0); MONOCYTES % (AUTO) 9.6 % (1.7-9.3); NEUTROPHILS # (AUTO) 3.6 K/uL (1.8-7.7); NEUTROPHILS % (AUTO) 52.6 % (42.2-75.2); PLATELET COUNT (AUTO) 305 K/uL (140-450); RED CELL DISTRIBUTION WIDTH 13.9 % (11.6-13.7); WHITE BLOOD COUNT (AUTO) 6.9 K/uL (4.8-10.8)
[2018-05-03 07:10] LABS: ANION GAP 15.2 (8-16); CARBON DIOXIDE 27.5 mmol/L (21-32); CREATININE 1.4 mg/dL (0.7-1.3); POTASSIUM 4.7 mmol/L (3.5-5.1)
[2018-05-03] MEDS: ALBUTEROL SULFATE/IPRATROPIU 3 ML SOL IH SCH ×3 (07:24→19:04)
[2018-05-03 08:00] VITALS: BP 131/82
[2018-05-03 08:54] LABS: MAGNESIUM 2.1 mg/dL (1.8-2.4); PHOSPHORUS 3.4 mg/dL (2.5-4.9)
[2018-05-03] MEDS: DOCUSATE SODIUM 250 MG GELCAP PO SCH (08:54)
[2018-05-03] MEDS: chlorproMAZINE 25 MG TAB PO SCH ×2 (08:55→21:04)
[2018-05-03] MEDS: FAMOTIDINE 20 MG TAB PO SCH ×2 (08:55→21:03)
[2018-05-03] MEDS: LACTOBACILLUS RHAMNOSUS GG 1 EACH CAP PO SCH (08:55)
[2018-05-03] MEDS: TOPIRAMATE 25 MG TAB PO SCH ×2 (08:55→21:04)
[2018-05-03] MEDS: DIVALPROEX 250 MG, DIVALPROEX 500 MG PO SCH ×4 (08:56→21:04)
[2018-05-03] MEDS: METOCLOPRAMIDE 10 MG TAB PO SCH ×4 (08:56→21:03)
[2018-05-03] MEDS: LISINOPRIL 5 MG TAB PO SCH (08:56)
[2018-05-03] MEDS: MUPIROCIN CA NASAL 2% 1GM TUBE NS SCH (15:18)
[2018-05-03] MEDS: CHLORHEXADINE GLUC 2% CLOTH TP SCH (15:19)
[2018-05-03 16:00] VITALS: BP 96/69
[2018-05-03] MEDS: ATORVASTATIN 20 MG TAB PO SCH (21:03)
[2018-05-04 00:06] VITALS: BP 130/73
[2018-05-04] MEDS: PIPER/TAZO 3.375GM/D5W PREMIX 50 ML IV SCH ×2 (05:07→11:24)
[2018-05-04] MEDS: LEVOTHYROXINE 0.088 MG TAB PO SCH (06:09)
[2018-05-04] MEDS: ALBUTEROL SULFATE/IPRATROPIU 3 ML SOL IH SCH ×2 (06:49→13:00)
[2018-05-04 07:23] LABS: BASOPHILS % (AUTO) 0.1 % (0.0-2.0); EOSINOPHILS % (AUTO) 0.6 % (0.0-4.0); HEMATOCRIT 35.7 % (36-52); HEMOGLOBIN 11.4 g/dL (12.0-18.0); LYMPHOCYTES # (AUTO) 2.3 K/uL (2.0-11.5); LYMPHOCYTES % (AUTO) 40.5 % (20.5-51.1); MEAN CORPUSCULAR HEMOGLOBIN 30 pg (27-31); MEAN CORPUSCULAR HGB CONC 32 g/dL (33-37); MEAN CORPUSCULAR VOLUME 93.5 fL (80-94); MONOCYTES # (AUTO) 0.8 K/uL (0.8-1.0); MONOCYTES % (AUTO) 14.3 % (1.7-9.3); NEUTROPHILS # (AUTO) 2.5 K/uL (1.8-7.7); NEUTROPHILS % (AUTO) 44.5 % (42.2-75.2); PLATELET COUNT (AUTO) 321 K/uL (140-450); RED BLOOD CELL COUNT(AUTO) 3.82 MIL/uL (4.20-6.10); RED CELL DISTRIBUTION WIDTH 13.5 % (11.6-13.7); WHITE BLOOD COUNT (AUTO) 5.6 K/uL (4.8-10.8)
[2018-05-04 08:00] VITALS: BP 146/74
[2018-05-04 08:03] LABS: ANION GAP 11.7 (8-16); CARBON DIOXIDE 29.8 mmol/L (21-32); CREATININE 1.4 mg/dL (0.7-1.3); MAGNESIUM 2.1 mg/dL (1.8-2.4); PHOSPHORUS 3.3 mg/dL (2.5-4.9); POTASSIUM 4.5 mmol/L (3.5-5.1)
[2018-05-04] MEDS: DOCUSATE SODIUM 250 MG GELCAP PO SCH (08:35)
[2018-05-04] MEDS: chlorproMAZINE 25 MG TAB PO SCH (08:35)
[2018-05-04] MEDS: TOPIRAMATE 25 MG TAB PO SCH (08:35)
[2018-05-04] MEDS: METOCLOPRAMIDE 10 MG TAB PO SCH (08:35)
[2018-05-04] MEDS: FAMOTIDINE 20 MG TAB PO SCH (08:36)
[2018-05-04] MEDS: LISINOPRIL 5 MG TAB PO SCH (08:36)
[2018-05-04] MEDS: DIVALPROEX 250 MG, DIVALPROEX 500 MG PO SCH ×2 (08:37)
[2018-05-04] MEDS: LACTOBACILLUS RHAMNOSUS GG 1 EACH CAP PO SCH (08:37)
[2018-05-04] MEDS ORDERED: ZOS3.375PM IV (08:53)
[2018-05-04] MEDS ORDERED: LACT10CA1 PO (08:53)
[2018-05-04] MEDS ORDERED: LISI-424 PO (09:24)
[2018-05-04] MEDS ORDERED: ACET-9529 PO (09:24)
[2018-05-04] MEDS ORDERED: LEVO0.087 PO (09:24)
[2018-05-04] MEDS ORDERED: ATOR20TA40 PO (09:24)
[2018-05-04] MEDS ORDERED: ONDA2SOL45 IVP (09:24)
[2018-05-04] MEDS ORDERED: FAMO20TA13 PO (09:24)
[2018-05-04] MEDS ORDERED: BACTNA NS (09:24)
[2018-05-04] MEDS ORDERED: CHLO118S2 TP (09:24)
[2018-05-04] MEDS ORDERED: ACET-1182 PO (09:24)
[2018-05-04] MEDS: CHLORHEXADINE GLUC 2% CLOTH TP SCH (13:36)
[2018-05-04] MEDS: MUPIROCIN CA NASAL 2% 1GM TUBE NS SCH (13:36)
== END 2018-05-04 13:45 | DRG 177 ==
LOC: MED 16:44 → MTU 17:46
PROVIDERS: ADMIT General Practice; ATTEND General Practice
DX: J69.0 Pneumonitis due to inhalation of food and vomit (principal); N17.0 Acute kidney failure with tubular necrosis; J44.1 Chronic obstructive pulmonary disease with (acute) exacerbation; J98.11 Atelectasis; M48.54XA Collapsed vertebra, not elsewhere classified, thoracic region, initial encounter for fracture; K21.9 Gastro-esophageal reflux disease without esophagitis; M94.0 Chondrocostal junction syndrome [Tietze]; E03.9 Hypothyroidism, unspecified; E11.9 Type 2 diabetes mellitus without complications; F79 Unspecified intellectual disabilities; F29 Unspecified psychosis not due to a substance or known physiological condition; G40.909 Epilepsy, unspecified, not intractable, without status epilepticus; E78.5 Hyperlipidemia, unspecified; I10 Essential (primary) hypertension; E66.3 Overweight; D50.9 Iron deficiency anemia, unspecified; R16.1 Splenomegaly, not elsewhere classified; D71 Functional disorders of polymorphonuclear neutrophils; Z88.8 Allergy status to other drugs, medicaments and biological substances; Z79.84 Long term (current) use of oral hypoglycemic drugs; Z79.899 Other long term (current) drug therapy; Z68.26 Body mass index [BMI] 26.0-26.9, adult
CPT/HCPCS: 36415; 71045; 71046; 80048; 80053; 80305; 81003; 82150; 82607; 82728; 82746; 82948; 83036; 83540; 83605; 83690; 83735; 83880; 84100; 84439; 84443; 84484; 85025; 85045; 85610; 85730; 87040; 87070; 87081; 87205; 92610; 93925; 93970; 94640; 96365; 97535; 99285; J1644; J1815; J2543; J7030; J7060; J7620; J8597; Q0092

== ENCOUNTER 2018-06-30 10:10 | Emergency (ER) | payer OTHER, MEDICAID ==
[~2018-06-30] VITALS: Ht 177.8 cm; Wt 72.3 kg
[~2018-06-30 10:10] MED LIST changes: +ACET-1182 PO; -ACET-2619 PO; +ACET-9529 PO; +ATOR20TA40 PO; -ATOR40TA40 PO; +BACTNA NS; +CHLO118S2 TP; -ESOM20EC PO; +FAMO20TA13 PO; -GEMF600T5 PO; +LISI-424 PO; -LORA-476 PO; -METO25TA PO; -MIRABULK PO; +ONDA2SOL45 IVP; -ROC2I IV; -SPIMDI INH; +ZOS3.375PM IV
[2018-06-30 10:21] VITALS: BP 106/64
[2018-06-30 12:04] VITALS: BP 111/68
== END 2018-06-30 12:04 | disposition home or self-care (01) ==
LOC: MED 10:10
DX: K59.00 Constipation, unspecified (principal); J44.9 Chronic obstructive pulmonary disease, unspecified; E11.9 Type 2 diabetes mellitus without complications; K21.9 Gastro-esophageal reflux disease without esophagitis; I10 Essential (primary) hypertension; E03.9 Hypothyroidism, unspecified; Z88.8 Allergy status to other drugs, medicaments and biological substances; Z79.4 Long term (current) use of insulin; Z79.899 Other long term (current) drug therapy
CPT/HCPCS: 74022; 81002; 99283

== ENCOUNTER 2018-07-21 18:43 | Inpatient (IN) | payer OTHER, MEDICAID ==
--- NOTE | 2018-07-16 22:40 | NUR ---
PT. REFUSED TO HAVE SNACK . JUST DRANK MILK AND JUICE. ABLE TO VERBALIZE SIMPLE NEEDS. Addendum: 07/26/18 at 0244 by Gi Lezama RN ABOVE CAHRTING WRONG DATE.
[~2018-07-21] VITALS: Ht 172.7 cm; Wt 68.5 kg
[2018-07-21 18:49] VITALS: BP 130/80
--- NOTE | 2018-07-21 18:57 | NUR ---
PATIENT BIB [facility] TO ED WITH THE CHIEF C/O ABDOMINAL PAIN. PER PT IS NOT PASSING STOOL. DOES NOT REMEMBER WHEN HE LAST WENT/BM. DENIES N/V/D; SKIN IS PINK/WARM/DRY; AAOX4 WITH EVEN AND STEADY GAIT. PT AFEBRILE. NO CP, SOB, OR COUGH AT THIS TIME; PATIENT STATES PAIN OF 5/10 AT THIS TIME. VSS. PATIENT POSITIONED FOR COMFORT; HOB ELEVATED; BEDRAILS UP X2; BED DOWN. ER MD MADE AWARE OF PT STATUS.
--- NOTE | 2018-07-21 19:00 | NUR ---
Pt taken for CT.
--- NOTE | 2018-07-21 19:10 | NUR ---
RECIEVED REPORT FROM CHEPE HANCOCK.
--- NOTE | 2018-07-21 19:10 | NUR ---
REPORT GIVEN TO PLASTIC PARTS DESIGNER RN FOR CONTINUITY OF CARE.
--- NOTE | 2018-07-21 19:12 | NUR ---
PT RETURN FROM CT
[2018-07-21 19:24] LABS: BASOPHILS % (AUTO) 0.4 % (0.0-2.0); EOSINOPHILS % (AUTO) 0.7 % (0.0-4.0); HEMATOCRIT 36.4 % (36-52); HEMOGLOBIN 11.5 g/dL (12.0-18.0); LYMPHOCYTES # (AUTO) 2.5 K/uL (2.0-11.5); LYMPHOCYTES % (AUTO) 39.2 % (20.5-51.1); MEAN CORPUSCULAR HEMOGLOBIN 29 pg (27-31); MEAN CORPUSCULAR HGB CONC 32 g/dL (33-37); MEAN CORPUSCULAR VOLUME 90.7 fL (80-94); MONOCYTES # (AUTO) 0.5 K/uL (0.8-1.0); MONOCYTES % (AUTO) 8.3 % (1.7-9.3); NEUTROPHILS # (AUTO) 3.3 K/uL (1.8-7.7); NEUTROPHILS % (AUTO) 51.4 % (42.2-75.2); PLATELET COUNT (AUTO) 303 K/uL (140-450); RED BLOOD CELL COUNT(AUTO) 4.02 MIL/uL (4.20-6.10); RED CELL DISTRIBUTION WIDTH 14.3 % (11.6-13.7); WHITE BLOOD COUNT (AUTO) 6.4 K/uL (4.8-10.8)
--- NOTE | 2018-07-21 19:29 | NUR ---
Dr. Leal evaluating patient at bedside.
[2018-07-21] MEDS ORDERED: SODIUM PHOSPHATE 118 ML ENEM RC ONE (19:30)
[2018-07-21 19:37] LABS: ANION GAP 13.8 (8-16); CARBON DIOXIDE 27.9 mmol/L (21-32); CREATININE 1.5 mg/dL (0.7-1.3); POTASSIUM 4.7 mmol/L (3.5-5.1)
[2018-07-21 19:42] LABS: ALBUMIN 3.8 g/dL (3.4-5.0); TOTAL BILIRUBIN 0.2 mg/dL (0.0-1.0)
[2018-07-21] MEDS ORDERED: NACL 0.9% 1,000 ML IV ONE (20:00)
[2018-07-21] MEDS ORDERED: ACETAMINOPHEN 325 MG TAB PO PRN (20:10)
[2018-07-21] MEDS ORDERED: MAGNESIUM HYDROXIDE 2400 MG/30 ML UDC PO PRN ×2 (20:10→21:35)
[2018-07-21] MEDS ORDERED: ZOLPIDEM 5 MG TAB PO PRN (20:10)
[2018-07-21] MEDS ORDERED: HYDROcodone/APAP 5/325 MG 1 TAB TAB PO PRN (20:10)
[2018-07-21] MEDS ORDERED: ONDANSETRON 4 MG/2 ML VIAL IM/IVP PRN (20:10)
[2018-07-21] MEDS ORDERED: DOCUSATE SODIUM 100 MG GELCAP PO PRN (20:10)
[2018-07-21] MEDS ORDERED: BISACODYL 10 MG SUPP RC PRN ×2 (20:10→21:30)
[2018-07-21] MEDS ORDERED: MORPHINE SULFATE 2 MG/ML SYR IVP PRN (20:10)
--- NOTE | 2018-07-21 20:38 | NUR ---
Dr. Hernandez evaluating patient at bedside.
[2018-07-21] MEDS ORDERED: NACL 0.9% 1,000 ML IV SCH (20:45)
[2018-07-21 21:00] VITALS: BP 107/80
--- NOTE | 2018-07-21 21:00 | NUR ---
RECEIVED REPORT FROM ARMANI JOHN. PATIENT IS AWAKE, ALERT, RESPIRATION EVEN UNLABORED ON ROOM. IV IS PATENT AND INTACT. SKIN IS WARM AND DRY. INITIAL ASSESSMENT DONE. ORIENTED PATIENT TO STAFF, ROOM, AND CALL LIGHT. SAFETY PRECAUTION IN PLACE. PLAN OF CARE WAS DISCUSS. BED IS IN LOW POSITION. CALL LIGHT WITHIN REACH.
--- NOTE | 2018-07-21 21:00 | NUR ---
Patient will be admitted to care of [facility]. Admited to med/surg with VSS via gurney. Will go to room 112B. Belongings list completed. Report to Momo HANCOCK.
[2018-07-21] MEDS ORDERED: DEXTROSE 50% 50 ML SYR IVP PRN (21:10)
[2018-07-21] MEDS ORDERED: INSULIN LISPRO SLIDING SCALE 100 UNITS/ML VIAL SUBQ PRN (21:10)
[2018-07-21] MEDS ORDERED: SODIUM PHOSPHATE PEDIATRIC 67.5 ML ENEM RC PRN (21:15)
[2018-07-21] MEDS ORDERED: DEXT 5% / NACL 0.9% 500 ML IV SCH (21:30)
[2018-07-21] MEDS ORDERED: ALBUTEROL SULFATE/IPRATROPIU 3 ML SOL IH PRN (21:35)
[2018-07-21 21:41] LABS: PROTHROMBIN TIME 9.6 secs (10.8-13.4)
[2018-07-21] MEDS ORDERED: DEXT 5% / NACL 0.45% 1,000 ML IV SCH (22:00)
--- NOTE | 2018-07-22 | NUR ---
PATIENT IS AWAKE, ALERT, RESPIRATION EVEN UNLABORED ON ROOM AIR. DENIES PAIN. VITALS IS STABLE. MEDS WERE GIVEN PER ORDER. CALL LIGHT WITHIN REACH. WILL CONTINUE TO MONITOR
[2018-07-22] MEDS ORDERED: LACTULOSE 20 GM/30 ML UDC PO SCH (00:30)
[2018-07-22] MEDS ORDERED: PIPER/TAZO 3.375GM/D5W PREMIX 50 ML IV SCH (00:45)
[2018-07-22] MEDS ORDERED: PIPERACILLIN/TAZOBACTAM 3.375 GM VIAL IV ONE ×2 (00:57→05:31)
[2018-07-22] MEDS: LORazepam 2 MG/ML VIAL IM/IVP PRN ×2 (01:17→03:44)
--- NOTE | 2018-07-22 01:19 | NUR ---
PATIENT IS AGITATED PRN ATIVAN WAS GIVEN.
--- NOTE | 2018-07-22 03:44 | NUR ---
PT AGITATED, CRYING AND ANXIOUS, NOTIFIED DR. PACHECO REGARDING PT, SAW PT AND STATED OK TO GIVE ANTHER DOSE OF ATIVAN RIGHT NOW, ATIVAN ORDERED ADMINISTERED, PT TOLERATED WELL, NO DISTRESS NOTED, CALL [facility] WITHIN REACH, WILL CONTINUE TO MONITOR.
[2018-07-22] MEDS: PANTOPRAZOLE 40 MG INJ VIAL IVP SCH (05:30)
[2018-07-22] MEDS: PIPER/TAZO 3.375GM/D5W PREMIX 50 ML IV SCH ×4 (05:30→23:39)
--- NOTE | 2018-07-22 05:50 | NUR ---
CONTACTED REGARDING SYNTHROID MEDS NOT AVAILABLE. DR. PACHECO SAID ITS OKAY TO ENDORSED TO AM SHIFT.
[2018-07-22] MEDS: FERROUS SULFATE 325 MG TABEC PO SCH (05:53)
[2018-07-22] MEDS: BLOOD GLUCOSE MONITORING 1 DEV DEV FS SCH ×4 (05:54→21:07)
[2018-07-22 06:14] LABS: BASOPHILS % (AUTO) 0.4 % (0.0-2.0); EOSINOPHILS % (AUTO) 0.7 % (0.0-4.0); HEMATOCRIT 39.2 % (36-52); HEMOGLOBIN 12.4 g/dL (12.0-18.0); LYMPHOCYTES % (AUTO) 32.7 % (20.5-51.1); MEAN CORPUSCULAR HEMOGLOBIN 29 pg (27-31); MEAN CORPUSCULAR HGB CONC 32 g/dL (33-37); MEAN CORPUSCULAR VOLUME 91.5 fL (80-94); MONOCYTES # (AUTO) 0.6 K/uL (0.8-1.0); NEUTROPHILS # (AUTO) 3.4 K/uL (1.8-7.7); NEUTROPHILS % (AUTO) 56.2 % (42.2-75.2); PLATELET COUNT (AUTO) 316 K/uL (140-450); RED BLOOD CELL COUNT(AUTO) 4.29 MIL/uL (4.20-6.10); RED CELL DISTRIBUTION WIDTH 14.9 % (11.6-13.7); WHITE BLOOD COUNT (AUTO) 6.1 K/uL (4.8-10.8)
[2018-07-22] MEDS: LEVOTHYROXINE 0.088 MG TAB PO SCH (06:30)
--- NOTE | 2018-07-22 07:11 | NUR ---
ENDORSED PATIENT TO AVINASH RODRIGUEZ NURSE FOR CONTINUITY CARE. PATIENT IS STABLE AT THIS TIME.
--- NOTE | 2018-07-22 07:12 | NUR ---
RECEIVED BEDSIDE REPORT FROM KARISSA HOLBROOK AND KARISSA TYLER. PT STABLE, AWAKE, AND ALERT. NO SIGNS OF DISTRESS NOTED. DENIES PAIN. NO REDNESS, SWELLING, OR INFLAMMATION NOTED ON IV SITE. CALL [facility] WITHIN REACH. SAFETY MEASURES IN PLACE. PLAN OF CARE REVIEWED.
[2018-07-22 07:23] LABS: ANION GAP 12.1 (8-16); CARBON DIOXIDE 27.9 mmol/L (21-32); CREATININE 1.2 mg/dL (0.7-1.3)
[2018-07-22 07:37] LABS: MAGNESIUM 2.2 mg/dL (1.8-2.4)
--- NOTE | 2018-07-22 07:58 | NUR ---
PATIENT HAS BEEN SCREENED AND CATEGORIZED HIGH NUTRITION RISK. PATIENT WILL BE SEEN WITHIN 1-2 DAYS OF ADMISSION. 07/22/18-07/23/[address]
[2018-07-22 08:00] VITALS: BP 107/74
[2018-07-22] MEDS ORDERED: TOPIRAMATE 25 MG TAB PO SCH (09:00)
[2018-07-22] MEDS ORDERED: NIACIN 500 MG TAB PO SCH (09:00)
[2018-07-22] MEDS: NACL 0.9% 1,000 ML IV SCH ×2 (10:50→23:39)
[2018-07-22] MEDS: LACTULOSE 20 GM/30 ML UDC PO SCH ×3 (10:51→17:45)
[2018-07-22] MEDS: ATORVASTATIN 20 MG TAB PO SCH (10:52)
[2018-07-22] MEDS: metFORMIN 500 MG TAB PO SCH (10:52)
[2018-07-22] MEDS: DIVALPROEX 250 MG TABEC PO SCH ×2 (10:53→21:06)
--- NOTE | 2018-07-22 10:53 | NUR ---
ADMINISTERED SCHEDULED MEDICATIONS. PT TOLERATED WELL.
[2018-07-22] MEDS: LISINOPRIL 5 MG TAB PO SCH (10:54)
[2018-07-22] MEDS: DOCUSATE SODIUM 250 MG GELCAP PO SCH (10:54)
[2018-07-22] MEDS: chlorproMAZINE 25 MG TAB PO SCH ×2 (10:55→21:05)
[2018-07-22] MEDS: TOPIRAMATE 25 MG TAB PO SCH ×2 (10:55→21:07)
[2018-07-22] MEDS: LACTOBACILLUS RHAMNOSUS GG 1 EACH CAP PO SCH (10:56)
[2018-07-22] MEDS: METOCLOPRAMIDE 10 MG TAB PO SCH ×4 (10:56→21:06)
[2018-07-22] MEDS: POLYETHYLENE GLYCOL 17 GM/PKT PO SCH (10:57)
--- NOTE | 2018-07-22 12:05 | NUR ---
BG 84. NO COVERAGE NEEDED. NO OTHER NEEDS AT THIS TIME.
--- NOTE | 2018-07-22 12:19 | NUR ---
07/22/18 RD INITIAL ASSESSMENT COMPLETED PLEASE REFER TO NUTRITION ASSESSMENT UNDER CARE ACTIVITY FOR ESTIMATED NUTRITIONAL NEEDS. 1. RECOMMEND CCHO 60 GM MECH SOFT WITH HONEY THICK LIQUID DIET TOLERATED 2. RECOMMEND SWALLOW EVALUATION FOR CORRECT DIET TEXTURE 3. RD TO FOLLOW-UP 3-5 DAYS, MODERATE RISK FABIOLA GALVAN RD
--- NOTE | 2018-07-22 13:00 | NUR ---
SPOKE WITH JULISSA CANO FROM [facility] REGARDING PLAN OF CARE.
[2018-07-22] MEDS ORDERED: BISACODYL 10 MG SUPP RC SCH (14:00)
[2018-07-22] MEDS ORDERED: SIMETHICONE 80 MG TAB.CHEW PO SCH (14:00)
[2018-07-22] MEDS ORDERED: SODIUM PHOSPHATE 118 ML ENEM RC SCH (14:00)
[2018-07-22 14:35] LABS: AMYLASE 58 U/L (25-115); PHOSPHORUS 3.4 mg/dL (2.5-4.9); THYROID STIMULATING HORMONE 3.58 uIU/mL (0.34-3.74)
--- NOTE | 2018-07-22 15:30 | NUR ---
PT STABLE, AWAKE, AND ALERT. PT WALKING IN THE HALLWAYS WITH SITTER.
[2018-07-22 16:00] VITALS: BP 118/77
[2018-07-22] MEDS: EZETIMIBE 10 MG TAB PO SCH (17:44)
--- NOTE | 2018-07-22 17:44 | NUR ---
ADMINISTERED SCHEDULED MEDICATIONS. PT TOLERATED WELL. FLEETS ENEMA HELD PER MD ORDER.
--- NOTE | 2018-07-22 19:25 | NUR ---
ENDORSED PT TO RN SUMMER FOR CONTINUITY OF CARE. PT STABLE, AWAKE, AND ALERT.
--- NOTE | 2018-07-22 19:30 | NUR ---
RECEIVED REPORT FROM RN CATINA BRYANT, PATIENT IN HALLWAY, REFUSING TO STAY IN ROOM, IV IN RIGHT THUMB, WRAPPED, SL, REFUSING TO HAVE IV INFUSION. ON RA, WEARING A MASK, DENIES PAIN. BP 120/78 HR 74. EXPLAINED PLAN OF CARE. EXPLAINED NEEDS TO STAY IN ROOM, PATIENT REFUSED STATES HE DOES NOT WANT TO BE ALONE. DEMANDING TO SPEAK WITH HIS NURSE JOHN EXPLAINED SHE DOES NOT ANSWER.
--- NOTE | 2018-07-22 19:45 | NUR ---
PATIENT WANDERING AROUND UNIT, GOING INTO ROOM, NOT LISTENING TO STAFF. EXPLAINED HE NEEDED TO STAY IN ROOM. HE STATED HES LOOKING FOR THE DR, STATED THE DRS ARE BUSY AND WILL SEE HIM WHEN SHE HAS TIME, HE STATED NO NOW I WANT TO SEE THE DR. EXPLAINED THEY ARE SEEING OTHER PATIENTS AND WILL SEE HIM LATER, PATIENT BEGAN GOING INTO OTHER PATENTS ROOMS LOOKING FOR THE DR, TOLD SITTER TO TRY TO CONTROL PATIENT. RESIDENTS AWARE.
--- NOTE | 2018-07-22 21:00 | NUR ---
BG 94 NO COVERAGE NEEDED, WILL GIVE DUE MEDICATIONS. PATIENT REFUSING TO STAY IN ROOM. SITTER IN PLACE.
--- NOTE | 2018-07-22 22:00 | NUR ---
PATIENT WAS SEEN BY DR PACHECO, TOLD TO STAY IN ROOM, PATIENT STATED OKAY.
--- NOTE | 2018-07-22 22:30 | NUR ---
PATIENT CONTINUING TO WANDER HALLS, PATIENT REFUSED TO STAY IN ROOM.
--- NOTE | 2018-07-22 23:39 | NUR ---
PATIENT REFUSED IV ZOSYN STATED I DON'T NEED THAT. EDUCATION PROVIDED.
[2018-07-23] VITALS: BP 120/78
--- NOTE | 2018-07-23 00:30 | NUR ---
V/S TAKEN ALL WITHIN BASELINE WILL CONTINUE TO MONITOR.
--- NOTE | 2018-07-23 02:00 | NUR ---
PATIENT SLEEPING G IN BED, WILL CONTINUE WITH SITTER.
--- NOTE | 2018-07-23 04:30 | NUR ---
PATIENT REFUSING DUE MEDICATION STATED HE DOES NOT NEED IT BECAUSE HE IS NOT SICK.
[2018-07-23] MEDS: PIPER/TAZO 3.375GM/D5W PREMIX 50 ML IV SCH ×4 (04:47→23:33)
[2018-07-23] MEDS: FERROUS SULFATE 325 MG TABEC PO SCH (05:19)
[2018-07-23] MEDS: PANTOPRAZOLE 40 MG INJ VIAL IVP SCH (05:19)
[2018-07-23] MEDS: LEVOTHYROXINE 0.088 MG TAB PO SCH (05:20)
[2018-07-23] MEDS: BLOOD GLUCOSE MONITORING 1 DEV DEV FS SCH ×4 (05:20→21:23)
--- NOTE | 2018-07-23 05:20 | NUR ---
PATIENT REFUSED DUE MEDICATION, PATIENT REFUSED ACCU CHECKS YELLED HE IS NOT SICK AND WANTS TO SEE TALK TO JOHN.
[2018-07-23 06:18] LABS: T4 (THYROXINE) 6.1 ug/dL (4.5-12.0)
[2018-07-23 06:21] LABS: BASOPHILS % (AUTO) 0.2 % (0.0-2.0); EOSINOPHILS # (AUTO) 0.1 K/uL (0-0.4); EOSINOPHILS % (AUTO) 0.8 % (0.0-4.0); HEMATOCRIT 38.7 % (36-52); HEMOGLOBIN 12.3 g/dL (12.0-18.0); LYMPHOCYTES # (AUTO) 2.5 K/uL (2.0-11.5); LYMPHOCYTES % (AUTO) 32.8 % (20.5-51.1); MEAN CORPUSCULAR HEMOGLOBIN 29 pg (27-31); MEAN CORPUSCULAR HGB CONC 32 g/dL (33-37); MEAN CORPUSCULAR VOLUME 91.4 fL (80-94); MONOCYTES # (AUTO) 0.8 K/uL (0.8-1.0); MONOCYTES % (AUTO) 10.6 % (1.7-9.3); NEUTROPHILS # (AUTO) 4.2 K/uL (1.8-7.7); NEUTROPHILS % (AUTO) 55.6 % (42.2-75.2); PLATELET COUNT (AUTO) 277 K/uL (140-450); RED BLOOD CELL COUNT(AUTO) 4.24 MIL/uL (4.20-6.10); WHITE BLOOD COUNT (AUTO) 7.6 K/uL (4.8-10.8)
[2018-07-23 06:51] LABS: CREATININE 1.3 mg/dL (0.7-1.3)
[2018-07-23 06:56] LABS: MAGNESIUM 2.2 mg/dL (1.8-2.4); PHOSPHORUS 4.9 mg/dL (2.5-4.9)
--- NOTE | 2018-07-23 07:00 | NUR ---
RECEIVED BEDSIDE REPORT FROM KARISSA SUMMER. PT STABLE, AWAKE, AND ALERT. NO SIGNS OF DISTRESS NOTED. NO REDNESS, SWELLING, OR INFLAMMATION NOTED ON IV SITE. SALINE LOCKED, PT REFUSED IV FLUIDS. CALL [facility]SON WITHIN REACH. SAFETY MEASURES IN PLACE. PLAN OF CARE REVIEWED.
--- NOTE | 2018-07-23 07:00 | NUR ---
ENDORSED PATIENT TO DAY SHIFT NURSE, PATIENT STABLE.
[2018-07-23 08:00] VITALS: BP 114/70
[2018-07-23] MEDS: LACTULOSE 20 GM/30 ML UDC PO SCH ×3 (10:00→17:10)
[2018-07-23] MEDS: POLYVINYL ALCOHOL 1.4% OP 15 ML SOL OP SCH ×3 (10:01→17:11)
[2018-07-23] MEDS: DIVALPROEX 250 MG TABEC PO SCH ×2 (10:02→21:16)
[2018-07-23] MEDS: metFORMIN 500 MG TAB PO SCH (10:02)
[2018-07-23] MEDS: DOCUSATE SODIUM 250 MG GELCAP PO SCH (10:02)
[2018-07-23] MEDS: LISINOPRIL 5 MG TAB PO SCH (10:03)
[2018-07-23] MEDS: ATORVASTATIN 20 MG TAB PO SCH (10:03)
[2018-07-23] MEDS: LACTOBACILLUS RHAMNOSUS GG 1 EACH CAP PO SCH (10:03)
[2018-07-23] MEDS: chlorproMAZINE 25 MG TAB PO SCH ×2 (10:04→21:15)
[2018-07-23] MEDS: TOPIRAMATE 25 MG TAB PO SCH ×2 (10:06→21:17)
[2018-07-23] MEDS: POLYETHYLENE GLYCOL 17 GM/PKT PO SCH (10:10)
[2018-07-23] MEDS: METOCLOPRAMIDE 10 MG TAB PO SCH ×4 (10:11→21:17)
--- NOTE | 2018-07-23 10:20 | NUR ---
ADMINISTERED SCHEDULED MEDICATIONS. PT TOLERATED WELL. NO OTHER NEEDS AT THIS TIME.
--- NOTE | 2018-07-23 10:48 | NUR ---
TOLERATED INCENTIVE SPIROMETRY THERAPY WELL WITHOUT INCIDENT ENCOURAGED PATIENT WITH ACKNOWLEDGEMENT TO USE INCENTIVE SPIROMETRY EVERY 1-2 HOURS WHILE AWAKE
--- NOTE | 2018-07-23 12:09 | NUR ---
ADMINISTERED SCHEDULED MEDICATION. PT TOLERATED WELL. NO OTHER NEEDS AT THIS TIME.
--- NOTE | 2018-07-23 13:01 | NUR ---
JAMAAL PEERZ SPOKE WITH SHAY PH# [phone], PREPARATION SUPERVISOR FREEZING OF [facility] WHERE PATIENT CAME FROM, WHO STATED THAT THEY ARE AN ICF FACILITY AND CANNOT ACCOMMODATE PATIENT ON IV ANTIBIOTIC. SHE ALSO SAID THAT PATIENT HAS HOME O2 AND PRIOR TO THIS ADMISSION HAD NO DIFFICULTY AMBULATING. PER SHAY, THEY HAVE AN ROBOTICS SYSTEMS ENGINEER DIRECTOR DISTRIBUTION WHO SHE CAN CALL TO PSYCHIATRIC LPN PATIENT FROM 9AM-5PM MONDAYS TO SUNDAYS. SHAY SAID THAT PATIENT'S WATER CARTER FROM [facility] IS AVILA CHAMORRO PH# [phone]. Addendum: 07/26/18 at 1128 by Soledad Cruz CM [facility] AVILA CHAMORRO WORK PH# [phone].
--- NOTE | 2018-07-23 14:30 | NUR ---
PT AMBULATING IN THE HALLWAY WITH STEADY GAIT.
[2018-07-23 16:00] VITALS: BP 98/65
[2018-07-23] MEDS: EZETIMIBE 10 MG TAB PO SCH (17:11)
--- NOTE | 2018-07-23 17:11 | NUR ---
ADMINISTERED SCHEDULED MEDICATIONS. PT TOLERATED WELL. NO OTHER NEEDS AT THIS TIME.
[2018-07-23] MEDS: NACL 0.9% 1,000 ML IV SCH (18:15)
--- NOTE | 2018-07-23 19:10 | NUR ---
ENDORSED PT TO RN MARIA ESTHER FOR CONTINUITY OF CARE. PT STABLE, AWAKE, AND ALERT.
--- NOTE | 2018-07-23 19:11 | NUR ---
RECEIVED REPORT FROM RN CATINA BRYANT FOR CONTINUITY OF CARE. PT A/OX2 ON ROOM AIR. PT IS ABLE TO MAKE NEEDS KNOWN, ABLE TO FOLLOW COMMANDS. PT AMBULATES WITH STEADY GAIT AND SKIN IS INTACT. PT IV WAS INFILTRATED, WILL START NEW ONE. VITAL SIGNS WITHIN NORMAL LIMITS. PT STABLE, DENIES HAVING ANY PAIN, NO SIGNS OF DISTRESS NOTED AT THIS TIME. PT POSITIONED FOR COMFORT. BED IN LOWEST POSITION, BED ALARM ON. WILL CONTINUE TO MONITOR.
--- NOTE | 2018-07-23 21:19 | NUR ---
ADMINISTERED SCHEDULED MEDICATIONS, PT TOLERATED WELL. BLOOD SUGAR IS 97 AT THIS TIME, NO INSULIN COVERAGE NEEDED.
--- NOTE | 2018-07-23 21:45 | NUR ---
ER RAIL GANG SUPERVISOR TRYING TO START IV NOW. KALA ASKED IF PT HAD HX OF DVT IN CASE HE NEEDED TO TRY IV START ON FOOT, TOLD HIM NO BUT PT IS DIABETIC.
--- NOTE | 2018-07-23 22:01 | NUR ---
SPOKE TO DR WHITAKER ABOUT PT NOT HAVING IV AND ER REGULATORY CONSULTANT TRIED SEVERAL TIMES BEFORE FINDING GOOD VEIN ON LEFT FOOT. SAID IT IS OKAY BECAUSE PT NEEDS IV ABX.
[2018-07-24] VITALS: BP 102/69
--- NOTE | 2018-07-24 | NUR ---
VITAL SIGNS WITHIN NORMAL LIMITS. PT STABLE, DENIES HAVING ANY PAIN, NO SIGNS OF DISTRESS NOTED AT THIS TIME. PT POSITIONED FOR COMFORT. BED IN LOWEST POSITION, BED ALARM ON. WILL CONTINUE TO MONITOR.
--- NOTE | 2018-07-24 01:51 | NUR ---
BLOOD PRESSURE IS NOW 117/71 Addendum: 07/24/18 at 0159 by Rosalia Adam RN DISREGARD.
--- NOTE | 2018-07-24 02:20 | NUR ---
PT TALKING IN HIS SLEEP, FLACC 0. NO SIGNS OF DISTRESS NOTED AT THIS TIME. PT POSITIONED FOR COMFORT. BED IN LOWEST POSITION, BED ALARM ON. WILL CONTINUE TO MONITOR.
--- NOTE | 2018-07-24 04:45 | NUR ---
PT ASKED TO HAVE LIGHTS TURNED ON. DENIES HAVING ANY PAIN, NO SIGNS OF DISTRESS NOTED AT THIS TIME. PT POSITIONED FOR COMFORT. BED IN LOWEST POSITION, BED ALARM ON. WILL CONTINUE TO MONITOR.
--- NOTE | 2018-07-24 06:00 | NUR ---
CALLED DIRECTOR OF BUSINESS SYSTEMS CHAPARRITA TO GET LEVOTHYROXINE BECAUSE IT IS NOT IN TELE OR MED-SURG PYXIS. SHE WILL LOOK FOR MEDICATION.
[2018-07-24] MEDS: FERROUS SULFATE 325 MG TABEC PO SCH (06:03)
[2018-07-24] MEDS: PIPER/TAZO 3.375GM/D5W PREMIX 50 ML IV SCH ×3 (06:03→17:01)
[2018-07-24] MEDS: PANTOPRAZOLE 40 MG INJ VIAL IVP SCH (06:03)
[2018-07-24] MEDS: BLOOD GLUCOSE MONITORING 1 DEV DEV FS SCH ×4 (06:04→20:10)
--- NOTE | 2018-07-24 06:07 | NUR ---
ADMINISTERED SCHEDULED MEDICATIONS, PT TOLERATED WELL.
--- NOTE | 2018-07-24 06:23 | NUR ---
SPOKE TO CONSULTING BUSINESS DEVELOPER CHAPARRITA, SHE COULD NOT FIND MEDICATION IN RIGHT DOSE. WILL ENDORSE TO DAY SHIFT RN/PHARMACY.
[2018-07-24 07:06] LABS: BASOPHILS % (AUTO) 0.2 % (0.0-2.0); EOSINOPHILS # (AUTO) 0.1 K/uL (0-0.4); HEMATOCRIT 37.4 % (36-52); HEMOGLOBIN 11.9 g/dL (12.0-18.0); LYMPHOCYTES # (AUTO) 2.5 K/uL (2.0-11.5); LYMPHOCYTES % (AUTO) 44.6 % (20.5-51.1); MEAN CORPUSCULAR HEMOGLOBIN 29 pg (27-31); MEAN CORPUSCULAR HGB CONC 32 g/dL (33-37); MEAN CORPUSCULAR VOLUME 91.1 fL (80-94); MONOCYTES # (AUTO) 0.7 K/uL (0.8-1.0); MONOCYTES % (AUTO) 12.6 % (1.7-9.3); NEUTROPHILS # (AUTO) 2.3 K/uL (1.8-7.7); NEUTROPHILS % (AUTO) 41.6 % (42.2-75.2); PLATELET COUNT (AUTO) 266 K/uL (140-450); RED CELL DISTRIBUTION WIDTH 14.5 % (11.6-13.7); WHITE BLOOD COUNT (AUTO) 5.6 K/uL (4.8-10.8)
--- NOTE | 2018-07-24 07:15 | NUR ---
RECEIVED PT REPORT FROM INDIVIDUAL SMALL GROUP INSTRUCTOR NURSE. PT IS AWAKE AND ALERT, NO S/S OF ACUTE DISTRESS OR SOB. NO C/O PAIN. IV NOTED ON THE L FOOT, PATENT AND INTACT. IV NS IS NOT INFUSING AT THIS TIME DUE TO PT REFUSING. PT IS ON ROOM AIR, SKIN IS INTACT. FALL PRECAUTIONS ARE IN PLACE. PT ON STANDARD ISOLATION. CALL LIGHT WITHIN REACH. WILL CONTINUE TO MONITOR PT.
--- NOTE | 2018-07-24 07:25 | NUR ---
ENDORSED PT TO DAY SHIFT RN TENZIN FOR CONTINUITY OF CARE. PT IN STABLE CONDITION.
[2018-07-24 07:53] LABS: MAGNESIUM 2.4 mg/dL (1.8-2.4); PHOSPHORUS 5.2 mg/dL (2.5-4.9)
[2018-07-24 08:00] VITALS: BP 111/76
[2018-07-24 08:01] LABS: CARBON DIOXIDE 24.7 mmol/L (21-32); CREATININE 1.4 mg/dL (0.7-1.3); POTASSIUM 4.7 mmol/L (3.5-5.1)
[2018-07-24] MEDS: POLYETHYLENE GLYCOL 17 GM/PKT PO SCH (08:30)
[2018-07-24] MEDS: LACTULOSE 20 GM/30 ML UDC PO SCH ×3 (08:31→17:00)
[2018-07-24] MEDS: LEVOTHYROXINE 0.088 MG TAB PO SCH (08:32)
[2018-07-24] MEDS: ATORVASTATIN 20 MG TAB PO SCH (08:32)
[2018-07-24] MEDS: ASCORBIC ACID 500 MG TAB PO SCH ×2 (08:32→20:12)
[2018-07-24] MEDS: DOCUSATE SODIUM 250 MG GELCAP PO SCH (08:32)
[2018-07-24] MEDS: METOCLOPRAMIDE 10 MG TAB PO SCH ×4 (08:33→20:11)
[2018-07-24] MEDS: LACTOBACILLUS RHAMNOSUS GG 1 EACH CAP PO SCH (08:33)
[2018-07-24] MEDS: TOPIRAMATE 25 MG TAB PO SCH ×2 (08:33→20:12)
[2018-07-24] MEDS: POLYVINYL ALCOHOL 1.4% OP 15 ML SOL OP SCH ×3 (08:34→17:00)
[2018-07-24] MEDS: chlorproMAZINE 25 MG TAB PO SCH ×2 (08:34→20:11)
[2018-07-24] MEDS: metFORMIN 500 MG TAB PO SCH (08:34)
[2018-07-24] MEDS: DIVALPROEX 250 MG TABEC PO SCH ×2 (08:34→20:11)
[2018-07-24] MEDS: LISINOPRIL 5 MG TAB PO SCH (08:35)
--- NOTE | 2018-07-24 09:10 | NUR ---
PT HAD A LARGE BM. PT TOOK ALL HIS SCHEDULED AM MEDS, BUT REFUSED THE EYE DROPS.
[2018-07-24] MEDS: NACL 0.9% 1,000 ML IV SCH (10:55)
--- NOTE | 2018-07-24 11:46 | NUR ---
PT TAKING A SHOWER. PT'S L FOOT WAS WRAPPED WITH PLASTIC TO COVER IV.
[2018-07-24 16:00] VITALS: BP 95/63
[2018-07-24] MEDS: EZETIMIBE 10 MG TAB PO SCH (17:00)
--- NOTE | 2018-07-24 19:20 | NUR ---
PT ENDORSED TO GRADUATING MACHINE OPERATOR IN STABLE CONDITION.
--- NOTE | 2018-07-24 19:21 | NUR ---
RECEIVED REPORT FROM KARISSA DAVE FOR CONTINUITY OF CARE. PT A/OX2 ON ROOM AIR. PT IS ABLE TO MAKE NEEDS KNOWN, ABLE TO FOLLOW COMMANDS. PT AMBULATES WITH STEADY GAIT AND SKIN IS INTACT. PT HAS A 22G IV TO LEFT FOOT. VITAL SIGNS WITHIN NORMAL LIMITS. PT STABLE, DENIES HAVING ANY PAIN, NO SIGNS OF DISTRESS NOTED AT THIS TIME. PT POSITIONED FOR COMFORT. BED IN LOWEST POSITION, BED ALARM ON. WILL CONTINUE TO MONITOR.
--- NOTE | 2018-07-24 20:16 | NUR ---
ADMINISTERED SCHEDULED MEDICATIONS, PT TOLERATED WELL. ALSO GAVE NORCO FOR ABDOMINAL PAIN.
--- NOTE | 2018-07-24 21:42 | NUR ---
PT STATES HE IS IN A LOT OF PAIN AND PAIN MEDICATION DIDN'T HELP HIM, AND HIS "TUMMY HURTS A LOT, CAN YOU PLEASE GIVE ME MEDICINE FOR PAIN?" PT FLACC 7, ADMINISTERED MORPHINE PER ORDER. PT TOLERATED WELL.
[2018-07-25] VITALS: BP 114/73
[2018-07-25] MEDS: PIPER/TAZO 3.375GM/D5W PREMIX 50 ML IV SCH ×5 (00:18→23:56)
[2018-07-25] MEDS: NACL 0.9% 1,000 ML IV SCH ×2 (02:29→20:15)
--- NOTE | 2018-07-25 02:35 | NUR ---
NO SIGNS OF DISTRESS NOTED AT THIS TIME. PT IS RESTING IN BED. BED IN LOWEST POSITION, BED ALARM ON. WILL CONTINUE TO MONITOR.
--- NOTE | 2018-07-25 04:40 | NUR ---
PT STATES HE NEEDS A BREATHING TREATMENT, CHECKED O2 SATURATION, IT IS AT 100%. PT'S BREATHING IS STEADY, WITH NORMAL EFFORT/DEPTH/PATTERN. NO SIGNS OF DISTRESS NOTED AT THIS TIME. CALLED RT LYLE AND TOLD HER PT SAID HE NEEDS A BREATHING TREATMENT BECAUSE HE FEELS SHORT OF BREATH. BED IN LOWEST POSITION, BED ALARM ON. WILL CONTINUE TO MONITOR.
--- NOTE | 2018-07-25 05:01 | NUR ---
PT GOT BREATHING TREATMENT AND STATES HE FEELS MUCH BETTER.
[2018-07-25] MEDS: BLOOD GLUCOSE MONITORING 1 DEV DEV FS SCH ×4 (05:54→20:51)
[2018-07-25] MEDS: LEVOTHYROXINE 0.088 MG TAB PO SCH (05:55)
[2018-07-25] MEDS: PANTOPRAZOLE 40 MG INJ VIAL IVP SCH (05:55)
[2018-07-25] MEDS: FERROUS SULFATE 325 MG TABEC PO SCH (05:55)
--- NOTE | 2018-07-25 05:55 | NUR ---
ADMINISTERED SCHEDULED MEDICATIONS, PT TOLERATED WELL.
[2018-07-25 06:52] LABS: BASOPHILS % (AUTO) 0.2 % (0.0-2.0); EOSINOPHILS # (AUTO) 0.1 K/uL (0-0.4); EOSINOPHILS % (AUTO) 1.2 % (0.0-4.0); HEMATOCRIT 37.5 % (36-52); HEMOGLOBIN 11.9 g/dL (12.0-18.0); LYMPHOCYTES # (AUTO) 2.6 K/uL (2.0-11.5); LYMPHOCYTES % (AUTO) 45.8 % (20.5-51.1); MEAN CORPUSCULAR HEMOGLOBIN 29 pg (27-31); MEAN CORPUSCULAR HGB CONC 32 g/dL (33-37); MEAN CORPUSCULAR VOLUME 90.9 fL (80-94); MONOCYTES # (AUTO) 0.5 K/uL (0.8-1.0); MONOCYTES % (AUTO) 8.7 % (1.7-9.3); NEUTROPHILS # (AUTO) 2.5 K/uL (1.8-7.7); NEUTROPHILS % (AUTO) 44.1 % (42.2-75.2); PLATELET COUNT (AUTO) 277 K/uL (140-450); RED BLOOD CELL COUNT(AUTO) 4.13 MIL/uL (4.20-6.10); RED CELL DISTRIBUTION WIDTH 14.6 % (11.6-13.7); WHITE BLOOD COUNT (AUTO) 5.6 K/uL (4.8-10.8)
[2018-07-25 07:32] LABS: ANION GAP 6.8 (8-16); CARBON DIOXIDE 28.7 mmol/L (21-32); CREATININE 1.6 mg/dL (0.7-1.3); POTASSIUM 4.5 mmol/L (3.5-5.1)
--- NOTE | 2018-07-25 07:33 | NUR ---
ENDORSED PT TO DAY SHIFT RN SAMUEL FOR CONTINUITY OF CARE. PT IN STABLE CONDITION.
--- NOTE | 2018-07-25 07:34 | NUR ---
RECEIVED BEDSIDE REPORT FROM MAINTENANCE HELPER UTILITY ENGINEER NURSE. PATIENT IS AWAKE, ALERT AND ORIENTEDX4. NO SIGNS OF DISTRESS ON RA. SKIN IS INTACT. GAIT IS STEADY. FALL RISK D/T MENTAL DELAY. L FOOT 22G SL, PATIENT REFUSING IVF AT THIS TIME. MED SURGE. PATIENT IS CONTINENT. BED IN LOW POSITION. CALL LIGHT WITHIN REACH. WILL CONTINUE TO MONITOR THE PATIENT.
[2018-07-25 08:00] VITALS: BP 118/58
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
--- NOTE | 2018-07-25 09:39 | NUR ---
urine sample sent to lab. ns started on pt NS AT [address] RIOS. PATIENT TOLERATING WELL. WILL CONTINUE TO MONITOR THE PATIENT.
[2018-07-25 09:55] LABS: APPEARANCE,URINE CLEAR (CLEAR); BILIRUBIN,URINE NEGATIVE (NEGATIVE); BLOOD, URINE NEGATIVE (NEGATIVE); COLOR,URINE YELLOW (YELLOW); LEUKOCYTE ESTERASE ,URINE NEGATIVE (NEGATIVE); NITRITE, URINE NEGATIVE (NEGATIVE); UGLUCOSE NEGATIVE (NEGATIVE)
[2018-07-25] MEDS: chlorproMAZINE 25 MG TAB PO SCH ×2 (10:03→20:50)
[2018-07-25] MEDS: metFORMIN 500 MG TAB PO SCH (10:03)
[2018-07-25] MEDS: DIVALPROEX 250 MG TABEC PO SCH ×2 (10:03→20:51)
[2018-07-25] MEDS: ATORVASTATIN 20 MG TAB PO SCH (10:03)
[2018-07-25 10:04] LABS: BARBITURATE, URINE NEG. ng/ml (NEG <=200); BENZODIAZEPINE, URINE NEG. ng/mL (NEG <=200); CANNABINOID, URINE NEG. ng/mL (NEG <=50); COCAINE, URINE NEG. ng/mL (NEG <=300); OPIATE, URINE POS. ng/mL (NEG <=2000); PHENCYCLIDINE SCREEN,URINE NEG. ng/mL (NEG <=25); RBC,URINE NONE SEEN /HPF (0-5); WBC,URINE 0-5 (RARE) /HPF (0-5)
[2018-07-25] MEDS: DOCUSATE SODIUM 250 MG GELCAP PO SCH (10:04)
[2018-07-25] MEDS: LACTOBACILLUS RHAMNOSUS GG 1 EACH CAP PO SCH (10:04)
[2018-07-25] MEDS: LISINOPRIL 5 MG TAB PO SCH (10:04)
[2018-07-25] MEDS: TOPIRAMATE 25 MG TAB PO SCH ×2 (10:04→20:50)
[2018-07-25] MEDS: METOCLOPRAMIDE 10 MG TAB PO SCH ×4 (10:04→20:50)
[2018-07-25] MEDS: LACTULOSE 20 GM/30 ML UDC PO SCH ×3 (10:05→17:00)
[2018-07-25] MEDS: POLYETHYLENE GLYCOL 17 GM/PKT PO SCH (10:05)
[2018-07-25] MEDS: ASCORBIC ACID 500 MG TAB PO SCH ×2 (10:05→20:50)
[2018-07-25] MEDS: POLYVINYL ALCOHOL 1.4% OP 15 ML SOL OP SCH ×3 (10:06→18:27)
--- NOTE | 2018-07-25 11:26 | NUR ---
PATIENT SITTING IN BED WATCHING TV. NO SIGNS OF DISTRESS. WILL CONTINUE TO MONITOR
--- NOTE | 2018-07-25 12:26 | NUR ---
ADMINISTERED MEDS. PATIENT TOLERATED WELL. WILL CONTINUE TO MONITOR THE PATIENT
--- NOTE | 2018-07-25 12:40 | NUR ---
PATIENT WANTS TO SHOWER. WILL LET PATIENT SHOWER AFTER ZOSYN IS DONE
--- NOTE | 2018-07-25 13:00 | NUR ---
PATIENT BACK IN THE BED FROM THE SHOWER. NO SIGNS OF DISTRESS. WILL CONTINUE TO MONITOR THE PATIENT
--- NOTE | 2018-07-25 15:11 | NUR ---
PATIENT SITTING AT THE SIDE OF BED. WILL CONTINUE TO MONITOR
[2018-07-25 16:00] VITALS: BP 104/57
--- NOTE | 2018-07-25 17:00 | NUR ---
PATIENT IS SLEEPING. NO SIGNS OF DISTRESS
[2018-07-25] MEDS: EZETIMIBE 10 MG TAB PO SCH (18:27)
--- NOTE | 2018-07-25 18:33 | NUR ---
ADMINISTERED MEDS. PATIENT TOLERATED WELL. HELD LACTULOSE PATIENT HAVING DIARRHEA.. PATIENT SITTING AT BEDSIDE EATING DINNER
--- NOTE | 2018-07-25 19:20 | NUR ---
GAVE BEDSIDE REPORT TO SYSTEMS SOFTWARE MANAGER NURSE. PATIENT ENDORSED IN STABLE CONDITION
--- NOTE | 2018-07-25 19:25 | NUR ---
RECEIVED FROM AM RN IN BED SLEEPING. WOKE UP WHEN TOUCHED AND INTRODUCED MYSELF. NOTED MENTALLY CHALLENGED. A/O X 3. ROM X 4. CALL LIGHT WITH IN REACH. ENCOURAGED TO CALL FOR ANY HELP HE MAY NEED. BED ALARM ON. CARE PLAN FOR THE NIGHT DISCUSSED WITH HIM. DX. OF ACUTE PANCREATITIS. NO COMPLAINTS DONE AT THIS TIME. NO RESTLESSNESS NOTED. IVF SITE TO LEFT FOOT INTACT.
--- NOTE | 2018-07-25 22:30 | NUR ---
PT. REFUSED TO HAVE SNACK . JUST DRANK MILK AND JUICE. ABLE TO VERBALIZE SIMPLE NEEDS. GOOD AFFECT.
--- NOTE | 2018-07-25 23:00 | NUR ---
ASSISTED TO RESTROOM. NO COMPLAINTS DONE . IVF SITE TO LOWER LEG INTACT.
[2018-07-26 00:04] VITALS: BP 116/74
[2018-07-26] MEDS: PIPER/TAZO 3.375GM/D5W PREMIX 50 ML IV SCH ×2 (05:12→11:08)
[2018-07-26] MEDS: NACL 0.9% 1,000 ML IV SCH (05:18)
[2018-07-26] MEDS: BLOOD GLUCOSE MONITORING 1 DEV DEV FS SCH ×2 (05:24→11:42)
--- NOTE | 2018-07-26 05:30 | NUR ---
PT. PROVIDED WITH CHOCOLATE AND VANILLA PUDDING WITH ANTOINE CRACKERS REQUESTED . GOOD AFFECT. USES CALL LIGHT FOR ANY HELP HE NEEDS. VERBALIZES WELL.
[2018-07-26] MEDS: PANTOPRAZOLE 40 MG INJ VIAL IVP SCH (06:00)
[2018-07-26] MEDS: LEVOTHYROXINE 0.088 MG TAB PO SCH (06:00)
[2018-07-26] MEDS: FERROUS SULFATE 325 MG TABEC PO SCH (06:00)
--- NOTE | 2018-07-26 06:35 | NUR ---
PT. AWAKE AT THIS TIME. NO SOB. AMBULATING WELL AND DENIES PAIN. ABLE TO VERBALIZE SIMPLE NEEDS.
[2018-07-26 06:38] LABS: ANION GAP 11.5 (8-16); CARBON DIOXIDE 27.5 mmol/L (21-32); CREATININE 1.4 mg/dL (0.7-1.3)
[2018-07-26 06:41] LABS: BASOPHILS % (AUTO) 0.5 % (0.0-2.0); EOSINOPHILS % (AUTO) 0.9 % (0.0-4.0); HEMATOCRIT 36.7 % (36-52); HEMOGLOBIN 11.7 g/dL (12.0-18.0); LYMPHOCYTES # (AUTO) 2.3 K/uL (2.0-11.5); MEAN CORPUSCULAR HEMOGLOBIN 29 pg (27-31); MEAN CORPUSCULAR HGB CONC 32 g/dL (33-37); MEAN CORPUSCULAR VOLUME 91.4 fL (80-94); MONOCYTES # (AUTO) 0.7 K/uL (0.8-1.0); MONOCYTES % (AUTO) 13.7 % (1.7-9.3); NEUTROPHILS # (AUTO) 2.1 K/uL (1.8-7.7); NEUTROPHILS % (AUTO) 40.9 % (42.2-75.2); PLATELET COUNT (AUTO) 273 K/uL (140-450); RED BLOOD CELL COUNT(AUTO) 4.02 MIL/uL (4.20-6.10); RED CELL DISTRIBUTION WIDTH 14.5 % (11.6-13.7); WHITE BLOOD COUNT (AUTO) 5.1 K/uL (4.8-10.8)
--- NOTE | 2018-07-26 07:24 | NUR ---
ENDORSED TO THE NEXT RN FOR CONTINUITY OF CARE. AWAKE AND ALERT. SMILING . NO PAIN COMPLAINTS THIS SHIFT. CALL LIGHT WITH IN REACH AND ABLE TO USE IT FOR HELP. VERBALIZES SIMPLE NEEDS. IVF SITE TO FOOT INTACT AND NO INFILTRATION.
--- NOTE | 2018-07-26 07:30 | NUR ---
RECEIVED PT FROM MANAGER CRISIS NURSE, PT IS AWAKE AND LYING ON THE BED WITH SIDE RAILS UP AND CALL LIGHT WITHIN REACH, FALL AND SAFETY PRECAUTION ENFORCED. PT HAS AN IV LINE ON THE LEFT FOOT G. 22 INTACT WITH NS INFUSING AT 60ML/HR. PT HAS A LEFT HEALED BIG TOE AMPUTATION NOTED. PT DENIES PAIN AND NO SOB NOTED. WILL CONTINUE TO MONITOR PT.
[2018-07-26 07:38] LABS: MAGNESIUM 2.1 mg/dL (1.8-2.4); PHOSPHORUS 3.2 mg/dL (2.5-4.9)
[2018-07-26 08:00] VITALS: BP 137/78
[2018-07-26] MEDS ORDERED: ZOS3.375I IV (08:07)
--- NOTE | 2018-07-26 08:20 | NUR ---
PT IS AWAKE AND VITAL SIGN TAKEN AND IS WITHIN NORMAL LIMIT. NO SIGN OF DISTRESS NOTED AND WILL MONITOR PT.
[2018-07-26] MEDS: POLYETHYLENE GLYCOL 17 GM/PKT PO SCH (08:51)
[2018-07-26] MEDS: chlorproMAZINE 25 MG TAB PO SCH (08:52)
[2018-07-26] MEDS: ATORVASTATIN 20 MG TAB PO SCH (08:53)
[2018-07-26] MEDS: LACTOBACILLUS RHAMNOSUS GG 1 EACH CAP PO SCH (08:53)
[2018-07-26] MEDS: DIVALPROEX 250 MG TABEC PO SCH (08:53)
[2018-07-26] MEDS: TOPIRAMATE 25 MG TAB PO SCH (08:54)
[2018-07-26] MEDS: ASCORBIC ACID 500 MG TAB PO SCH (08:54)
[2018-07-26] MEDS: METOCLOPRAMIDE 10 MG TAB PO SCH ×2 (08:54→13:31)
[2018-07-26] MEDS: metFORMIN 500 MG TAB PO SCH (08:55)
[2018-07-26] MEDS: LISINOPRIL 5 MG TAB PO SCH (08:55)
[2018-07-26] MEDS: DOCUSATE SODIUM 250 MG GELCAP PO SCH (08:55)
[2018-07-26] MEDS: POLYVINYL ALCOHOL 1.4% OP 15 ML SOL OP SCH ×2 (08:56→13:31)
[2018-07-26] MEDS: LACTULOSE 20 GM/30 ML UDC PO SCH ×2 (08:56→13:00)
--- NOTE | 2018-07-26 09:02 | NUR ---
PT IS AWAKE AND SEATED ON THE BED, V/S TAKEN PARAMETER AND IS WITHIN NORMAL LIMIT, ORAL MEDICATIONS GIVEN AND PT TOLERATED IT, NO SIGN OF DISTRESS NOTED AND WILL CONTINUE TO MONITOR PT.
--- NOTE | 2018-07-26 10:30 | NUR ---
PT WAS ASSISTED TO THE BATHROOM AND PT MADE A BIG BOWEL MOVEMENT.
--- NOTE | 2018-07-26 11:12 | NUR ---
PT IS AWAKE AND LYING ON THE BED IV ZOSYN WAS GIVEN VIA PIGGYBACK. PT TOLERATED IT AND WILL MONITOR PT.
--- NOTE | 2018-07-26 11:30 | NUR ---
PT IS AWAKE AND SEATED ON THE CHAIR, BLOOD GLUCOSE CHECK DONE AND RESULT IS 93 AND NO INSULIN COVERAGE NEEDED.
--- NOTE | 2018-07-26 12:56 | NUR ---
RECEIVED A CALL FROM GHAZAL RO[facility] AND INFORMED THAT PT WILL BE PICKED UP BY [facility] AT 1430 AND THAT PT IS GOING TO [facility] [address] DR[address] KAREL MANNING.
--- NOTE | 2018-07-26 13:00 | NUR ---
Rock Climbing Team Member Note: I faxed inquiry to [facility]. Per Demetrio from [facility] , patient can go to room 208B at their facility today, accepting physician is . Demetrio stated he will arrange transportation for patient and provide our charge nurse with transportation information. I provided him with telemetry's phone number, Line Installer Repairer Soledad made aware.
--- NOTE | 2018-07-26 13:00 | NUR ---
CM ANA DAY PH# [phone], ONCOLOGY PATIENT NAVIGATOR OF [facility], MADE AWARE OF PATIENT GOING TO [facility]. AVILA Darling PH# [phone], [facility] INSTRUCTIONAL WRITER REQUESTED TO SPEAK WITH ATTENDING PHYSICIAN. PER DR. MERLOS, SHE HAS SPOKEN WITH [facility] INSTRUCTIONAL WRITER AVILA AND EXPLAINED TO HER WHY PATIENT IS GOING TO A SNF. PER [facility] INSTRUCTIONAL WRITER AVILA, SHE IS AGREEABLE FOR PATIENT TO GO TO [facility].
--- NOTE | 2018-07-26 13:56 | NUR ---
CALLED [facility] AND GAVE REPORT TO JOHNNA PURCELL REGARDING THE PT, JOHNNA PURCELL WAS INFORMED THAT PT IS GOING TO [id number] UNDER THE SERVICE OF DR. KAREL MANNING. AND BINH OROPEZA VERBALIZED UNDERSTANDING.
--- NOTE | 2018-07-26 14:35 | NUR ---
DISCHARGED PT VIA WHEELCHAIR WITH [facility] PERSONNEL,GAVE REPORT ABOUT THE PT. IV LINE IN PLACE AND ARM BAND IS REMOVED. PT IS STABLE AT THIS TIME
== END 2018-07-26 14:35 | DRG 177 ==
LOC: MED 18:43 → MTU 20:07
PROVIDERS: ADMIT General Practice; ATTEND General Practice
DX: J69.0 Pneumonitis due to inhalation of food and vomit (principal); N17.0 Acute kidney failure with tubular necrosis; E87.1 Hypo-osmolality and hyponatremia; K86.1 Other chronic pancreatitis; K59.09 Other constipation; K21.9 Gastro-esophageal reflux disease without esophagitis; E66.3 Overweight; Z68.25 Body mass index [BMI] 25.0-25.9, adult; Z71.3 Dietary counseling and surveillance; E11.43 Type 2 diabetes mellitus with diabetic autonomic (poly)neuropathy; K31.84 Gastroparesis; Z88.8 Allergy status to other drugs, medicaments and biological substances; J44.9 Chronic obstructive pulmonary disease, unspecified; I10 Essential (primary) hypertension; Z93.1 Gastrostomy status; F29 Unspecified psychosis not due to a substance or known physiological condition; F79 Unspecified intellectual disabilities; F63.9 Impulse disorder, unspecified; G40.909 Epilepsy, unspecified, not intractable, without status epilepticus; E78.5 Hyperlipidemia, unspecified; E89.0 Postprocedural hypothyroidism; D50.9 Iron deficiency anemia, unspecified; E87.8 Other disorders of electrolyte and fluid balance, not elsewhere classified
CPT/HCPCS: 36415; 71045; 74018; 80048; 80053; 80305; 81001; 82140; 82150; 82948; 83036; 83540; 83605; 83690; 83735; 83880; 84100; 84436; 84443; 84484; 85025; 85610; 85730; 87081; 87205; 93005; 94640; 99285; C9113; G0482; J1815; J2060; J2270; J2543; J7030; J7060; J7620; J8597; Q0092

== ENCOUNTER 2018-08-13 23:06 | Inpatient (IN) | payer OTHER, MEDICAID ==
[~2018-08-13] VITALS: Ht 185.4 cm; Wt 71.7 kg
[2018-08-13 23:06] VITALS: BP 140/64
[~2018-08-13 23:06] MED LIST changes: -BACTNA NS; -CHLO118S2 TP; -METR500T1 PO; +ZOS3.375I IV; -ZOS3.375PM IV
--- NOTE | 2018-08-13 23:06 | NUR ---
Patient BIBA BLS, transferred to bed 10. RN evaluating patient at bedside.
--- NOTE | 2018-08-13 23:06 | NUR ---
PT BIBA AND PLACED IN BED 10
--- NOTE | 2018-08-13 23:26 | NUR ---
PT TO ED BIBA FROM [facility] FOR FEVER AND COLD SYMPTOMS. LUNG SOUNDS CTA. NO S/S OF RESP DISTRESS NOTED. PT ON HOME 02 AT 2L. PT PLACED INTO BED, PENDING MD CABALLERO.
--- NOTE | 2018-08-14 00:03 | NUR ---
Dr. Gold evaluating patient at bedside.
[2018-08-14] MEDS ORDERED: NACL 0.9% 1,000 ML IV ONE ×2 (00:12→00:15)
[2018-08-14] MEDS ORDERED: ONDANSETRON 4 MG/2 ML VIAL IVP ONE (00:15)
[2018-08-14] MEDS ORDERED: KETOROLAC 30 MG/ML VIAL IVP ONE (00:15)
--- NOTE | 2018-08-14 00:46 | NUR ---
Patient taken to CT scan via gurney by Wandrian.
[2018-08-14 00:50] LABS: BASOPHILS % (AUTO) 0.1 % (0.0-2.0); EOSINOPHILS % (AUTO) 0.4 % (0.0-4.0); HEMOGLOBIN 11.1 g/dL (12.0-18.0); LYMPHOCYTES # (AUTO) 1.9 K/uL (2.0-11.5); LYMPHOCYTES % (AUTO) 19.9 % (20.5-51.1); MEAN CORPUSCULAR HEMOGLOBIN 29 pg (27-31); MEAN CORPUSCULAR HGB CONC 32 g/dL (33-37); MEAN CORPUSCULAR VOLUME 89.9 fL (80-94); MONOCYTES % (AUTO) 10.3 % (1.7-9.3); NEUTROPHILS # (AUTO) 6.7 K/uL (1.8-7.7); NEUTROPHILS % (AUTO) 69.3 % (42.2-75.2); PLATELET COUNT (AUTO) 297 K/uL (140-450); RED CELL DISTRIBUTION WIDTH 14.9 % (11.6-13.7); WHITE BLOOD COUNT (AUTO) 9.7 K/uL (4.8-10.8)
[2018-08-14 01:03] LABS: ANION GAP 11.8 (8-16); CARBON DIOXIDE 29.8 mmol/L (21-32); CREATININE 1.2 mg/dL (0.7-1.3); POTASSIUM 4.6 mmol/L (3.5-5.1)
[2018-08-14 01:07] LABS: ALBUMIN 3.7 g/dL (3.4-5.0); TOTAL BILIRUBIN 0.2 mg/dL (0.0-1.0)
[2018-08-14] MEDS ORDERED: PIPERACILLIN/TAZOBACTAM 3.375 GM in DEXTROSE 5% 50 ML IV ONE (02:05)
[2018-08-14] MEDS ORDERED: PIPERACILLIN/TAZOBACTAM 3.375 GM VIAL IV ONE ×2 (02:18→06:18)
[2018-08-14] MEDS ORDERED: DOCUSATE SODIUM 100 MG GELCAP PO PRN (02:35)
[2018-08-14] MEDS ORDERED: HYDROcodone/APAP 5/325 MG 1 TAB TAB PO PRN (02:35)
[2018-08-14] MEDS ORDERED: ACETAMINOPHEN 325 MG TAB PO PRN (02:35)
[2018-08-14] MEDS ORDERED: ONDANSETRON 4 MG/2 ML VIAL IM/IVP PRN (02:35)
[2018-08-14] MEDS ORDERED: MORPHINE SULFATE 2 MG/ML SYR IVP PRN (02:35)
--- NOTE | 2018-08-14 02:48 | NUR ---
Patient will be admitted to care of DR LOWRY. Admited to TELE. Will go to room 107-A. Belongings list completed. Report to KARISSA VALDEZ .
[2018-08-14 02:55] VITALS: BP 116/71
[2018-08-14] MEDS ORDERED: INSULIN LISPRO SLIDING SCALE 100 UNITS/ML VIAL SUBQ PRN (02:55)
--- NOTE | 2018-08-14 02:55 | NUR ---
REPORT RECEIVED FROM ED NURSE AT BEDSIDE. PT IN STABLE CONDITION. AAOX4. INTRODUCED SELF TO PT. BOARD UPDATED. NO COMPLAINTS OF PAIN. NO SOB. ON 2L O2 VIA NC. AFEBRILE. IV SITE R WRIST 22G RUNNING NS@100ML/HR PATENT AND INTACT. SKIN WARM, DRY, AND INTACT. WITH NO OPEN WOUNDS. BED LOCKED IN LOW POSITION. CALL BRUNSON WITHIN REACH. SAFETY PRECAUTIONS IN PLACE. ALL NEEDS MET AT THIS TIME.
[2018-08-14 03:09] LABS: PROTHROMBIN TIME 9.1 secs (10.8-13.4)
[2018-08-14 03:10] LABS: MAGNESIUM 1.7 mg/dL (1.8-2.4); PHOSPHORUS 2.6 mg/dL (2.5-4.9); THYROID STIMULATING HORMONE 1.78 uIU/mL (0.34-3.74)
[2018-08-14 03:12] LABS: APPEARANCE,URINE CLEAR (CLEAR); BILIRUBIN,URINE NEGATIVE (NEGATIVE); BLOOD, URINE NEGATIVE (NEGATIVE); COLOR,URINE YELLOW (YELLOW); LEUKOCYTE ESTERASE ,URINE NEGATIVE (NEGATIVE); NITRITE, URINE NEGATIVE (NEGATIVE); UGLUCOSE NEGATIVE (NEGATIVE)
[2018-08-14] MEDS: NACL 0.9% 1,000 ML IV SCH ×3 (03:17→22:19)
[2018-08-14 03:22] LABS: BARBITURATE, URINE NEG. ng/ml (NEG <=200); BENZODIAZEPINE, URINE NEG. ng/mL (NEG <=200); CANNABINOID, URINE NEG. ng/mL (NEG <=50); COCAINE, URINE NEG. ng/mL (NEG <=300); OPIATE, URINE NEG. ng/mL (NEG <=2000); PHENCYCLIDINE SCREEN,URINE NEG. ng/mL (NEG <=25)
--- NOTE | 2018-08-14 03:38 | NUR ---
MAGOX GIVEN PO. PT TOLERATED WELL.
[2018-08-14] MEDS ORDERED: METF500T PO (03:41)
[2018-08-14] MEDS ORDERED: MAGNESIUM OXIDE 400 MG TAB ONE (03:45)
[2018-08-14] MEDS: ALBUTEROL SULFATE/IPRATROPIU 3 ML SOL IH PRN ×3 (03:57→21:28)
[2018-08-14 04:00] VITALS: BP 137/85
[2018-08-14] MEDS ORDERED: MAGNESIUM OXIDE 400 MG TAB PO SCH (04:00)
[2018-08-14] MEDS ORDERED: ALBUTEROL SULFATE/IPRATROPIU 3 ML SOL IH ONE (04:03)
[2018-08-14] MEDS ORDERED: LEVO0.087 PO (04:43)
[2018-08-14] MEDS ORDERED: GEMF600T5 PO (04:43)
[2018-08-14] MEDS: BLOOD GLUCOSE MONITORING 1 DEV DEV FS SCH ×4 (05:52→21:10)
--- NOTE | 2018-08-14 05:52 | NUR ---
BS 95. NO INSULIN COVERAGE NEEDED.
[2018-08-14] MEDS: LEVOTHYROXINE 0.075 MG TAB PO SCH (06:19)
[2018-08-14] MEDS: PIPER/TAZO 3.375GM/D5W PREMIX 50 ML IV SCH ×3 (06:19→22:19)
--- NOTE | 2018-08-14 06:19 | NUR ---
ZOSYN HUNG AND RUNNING. SYNTHROID GIVEN PO. PT TOLERATED WELL.
--- NOTE | 2018-08-14 07:15 | NUR ---
REPORT GIVEN TO AM NURSE AT BEDSIDE. PT IN STABLE CONDITION.
--- NOTE | 2018-08-14 07:16 | NUR ---
RECEIVED SBAR REPORT FROM NIGHT RN AT PT BEDSIDE. PATIENT IS AWAKE AND ALERT, FOLLOWS COMMANDS. AMBULATORY TO BATHROOM, STEADY GAIT. PATIENT CHANGED FROM HOSPITAL GOWN TO OWN CLOTHES, REFUSES TO WEAR GOWN. PATIENT REMOVED TELE BOX, EXPLAINED TO PATIENT NEED FOR TELE MONITORING, IN AGREEMENT, PATIENT PLACED ON MONITOR. PATIENT SEEN ON 2L NC, NO ACUTE DISTRESS NOTED. IV SITE PATENT AND INTACT. CALL LIGHT WITHIN REACH.
[2018-08-14 07:48] LABS: BASOPHILS % (AUTO) 0.1 % (0.0-2.0); EOSINOPHILS % (AUTO) 0.3 % (0.0-4.0); HEMATOCRIT 31.4 % (36-52); HEMOGLOBIN 9.9 g/dL (12.0-18.0); LYMPHOCYTES # (AUTO) 2.1 K/uL (2.0-11.5); LYMPHOCYTES % (AUTO) 24.5 % (20.5-51.1); MEAN CORPUSCULAR HEMOGLOBIN 29 pg (27-31); MEAN CORPUSCULAR HGB CONC 32 g/dL (33-37); MEAN CORPUSCULAR VOLUME 91.1 fL (80-94); MONOCYTES # (AUTO) 0.9 K/uL (0.8-1.0); MONOCYTES % (AUTO) 10.8 % (1.7-9.3); NEUTROPHILS # (AUTO) 5.6 K/uL (1.8-7.7); NEUTROPHILS % (AUTO) 64.3 % (42.2-75.2); PLATELET COUNT (AUTO) 236 K/uL (140-450); RED BLOOD CELL COUNT(AUTO) 3.44 MIL/uL (4.20-6.10); RED CELL DISTRIBUTION WIDTH 14.7 % (11.6-13.7); WHITE BLOOD COUNT (AUTO) 8.6 K/uL (4.8-10.8)
[2018-08-14 08:00] VITALS: BP 122/76
[2018-08-14 08:11] LABS: ANION GAP 11.8 (8-16); CARBON DIOXIDE 27.2 mmol/L (21-32); CREATININE 1.2 mg/dL (0.7-1.3)
[2018-08-14 08:24] LABS: MAGNESIUM 1.8 mg/dL (1.8-2.4); PHOSPHORUS 3.4 mg/dL (2.5-4.9)
[2018-08-14] MEDS: chlorproMAZINE 25 MG TAB PO SCH ×2 (08:59→21:00)
[2018-08-14] MEDS: METOCLOPRAMIDE 10 MG TAB PO SCH ×4 (09:00→20:47)
[2018-08-14] MEDS: NIACIN 500 MG TAB PO SCH (09:00)
[2018-08-14] MEDS: GEMFIBROZIL 600 MG TAB PO SCH ×2 (09:00→20:47)
[2018-08-14] MEDS: DOCUSATE SODIUM 250 MG GELCAP PO SCH (09:00)
[2018-08-14] MEDS: ASCORBIC ACID 500 MG TAB PO SCH (09:00)
[2018-08-14] MEDS: metFORMIN 500 MG TAB PO SCH ×2 (09:00→16:16)
[2018-08-14] MEDS: FERROUS SULFATE 325 MG TABEC PO SCH (09:00)
[2018-08-14] MEDS: FAMOTIDINE 20 MG TAB PO SCH ×2 (09:01→20:47)
[2018-08-14] MEDS: DIVALPROEX 250 MG TABEC PO SCH ×2 (09:01→20:47)
--- NOTE | 2018-08-14 09:24 | NUR ---
PATIENT TOLERATED PO DIET AND MEDS. AMBULATORY WITH STEADY GAIT, NO ACUTE DISTRESS NOTED.
--- NOTE | 2018-08-14 09:30 | NUR ---
RECEIVED PATIENT ON ROOM AIR, PULSE OX SAT 95%. PATIENT ASKING FOR BREATHING TREATMENT. COMPLAINS OF FEELING SOB. MILD COARSE EXPIRATORY WHEEZE PRESENT. PRN TX ADMINISTERED. TOLERATED TX WELL. PATIENT STATES TO BE FEELING BETTER. NO RESPIRATORY DISTRESS NOTED. WILL CONTINUE TO MONITOR.
--- NOTE | 2018-08-14 10:10 | NUR ---
PATIENT HAD VISITOR AT BEDSIDE FROM [facility]. DISCUSSED WITH PATIENT CURRENT PLAN OF CARE, IN AGREEMENT.
--- NOTE | 2018-08-14 11:40 | NUR ---
PATIENT ASSISTED TO BATHROOM, NO ACUTE DISTRESS NOTED. ALERT AND FOLLOWS COMMANDS. STEADY GAIT. AMBULATORY.
[2018-08-14 12:00] VITALS: BP 131/82
--- NOTE | 2018-08-14 14:40 | NUR ---
RECEIVED PATIENT FROM NURSE EFREN. PT ON ROOM AIR, PULSE OX SAT AT 95%. PATIENT IN BED RESTING. NO SOB AT THIS TIME. MILD COARSE EXPIRATORY WHEEZING PRESENT. PATIENT STATES TO BE FEELING BETTER. NO RESPIRATORY DISTRESS NOTED. WILL CONTINUE TO MONITOR. BED IN LOW POSITION, CALL LIGHT WITHIN REACH. WILL ROUND FREQUENTLY.
--- NOTE | 2018-08-14 14:43 | NUR ---
SBAR REPORT GIVEN TO KARISSA LAKE AT PT BEDSIDE. NO ACUTE DISTRESS NOTED.
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
[2018-08-14 16:00] VITALS: BP 138/71
[2018-08-14] MEDS: EZETIMIBE 10 MG TAB PO SCH (16:16)
--- NOTE | 2018-08-14 19:44 | NUR ---
ENDORSED PT TO FARM TECHNICIAN FOR CONTINUITY OF CARE. PT IN STABLE CONDITION AT THIS TIME.
--- NOTE | 2018-08-14 19:45 | NUR ---
REPORT RECEIVED FROM AM NURSE AT BEDSIDE. PT IN STABLE CONDITION. AAOX3. INTRODUCED SELF TO PT. BOARD UPDATED. NO COMPLAINTS OF PAIN. NO SOB. ON 2L O2 VIA NC. AFEBRILE. IV SITE R WRIST 22G RUNNING NS@100ML/HR PATENT AND INTACT. SKIN WARM, DRY, AND INTACT WITH NO OPEN WOUNDS. BED LOCKED IN LOW POSITION. CALL BRUNSON WITHIN REACH. SAFETY PRECAUTIONS IN PLACE. SEIZURE PRECAUTIONS IN PLACE. ALL NEEDS MET AT THIS TIME.
[2018-08-14] MEDS: ATORVASTATIN 20 MG TAB PO SCH (20:47)
--- NOTE | 2018-08-14 20:47 | NUR ---
DEPAKOTE, LIPITOR, LOPID, PEPCID, AND REGLAN GIVEN PO. HEPARIN GIVEN SUBQ. BS 96. NO INSULIN COVERAGE NEEDED. THORAZINE NOT AVAILABLE. HORSE EXERCISER NOTIFIED. UNABLE TO ATTAIN THIS MEDICATION FROM OTHER UNITS. PT TOLERATED WELL.
--- NOTE | 2018-08-14 22:19 | NUR ---
CAROLA HUNG AND RUNNING. PT TOLERATING WELL.
[2018-08-15] VITALS: BP 115/76
--- NOTE | 2018-08-15 01:00 | NUR ---
PT SLEEPING COMFORTABLY IN BED BUT AROUSABLE. NO S/S OF DISTRESS NOTED. BREATHING EVEN, UNLABORED, AND WNL. WILL CONTINUE TO MONITOR.
--- NOTE | 2018-08-15 03:30 | NUR ---
PT ALERT AND AWAKE WATCHING TV. NO S/S OF DISTRESS NOTED. NO COMPLAINTS OF PAIN. NO SOB ON 2L O2 VIA NC. AFEBRILE. WILL CONTINUE TO MONITOR.
[2018-08-15] MEDS: LEVOTHYROXINE 0.075 MG TAB PO SCH (06:10)
[2018-08-15] MEDS: PIPER/TAZO 3.375GM/D5W PREMIX 50 ML IV SCH ×3 (06:10→22:03)
[2018-08-15] MEDS: BLOOD GLUCOSE MONITORING 1 DEV DEV FS SCH ×4 (06:14→19:52)
[2018-08-15 06:46] LABS: BASOPHILS % (AUTO) 0.2 % (0.0-2.0); EOSINOPHILS % (AUTO) 0.4 % (0.0-4.0); HEMATOCRIT 32.7 % (36-52); HEMOGLOBIN 10.4 g/dL (12.0-18.0); LYMPHOCYTES % (AUTO) 22.8 % (20.5-51.1); MEAN CORPUSCULAR HEMOGLOBIN 29 pg (27-31); MEAN CORPUSCULAR HGB CONC 32 g/dL (33-37); MEAN CORPUSCULAR VOLUME 89.8 fL (80-94); MONOCYTES # (AUTO) 0.9 K/uL (0.8-1.0); MONOCYTES % (AUTO) 10.9 % (1.7-9.3); NEUTROPHILS # (AUTO) 5.6 K/uL (1.8-7.7); NEUTROPHILS % (AUTO) 65.7 % (42.2-75.2); PLATELET COUNT (AUTO) 270 K/uL (140-450); RED BLOOD CELL COUNT(AUTO) 3.64 MIL/uL (4.20-6.10); RED CELL DISTRIBUTION WIDTH 14.5 % (11.6-13.7); WHITE BLOOD COUNT (AUTO) 8.6 K/uL (4.8-10.8)
--- NOTE | 2018-08-15 06:46 | NUR ---
PATIENT HAS BEEN SCREENED AND CATEGORIZED LOW NUTRITION RISK. PATIENT WILL BE SEEN WITHIN 7 DAYS OF ADMISSION. 08/16/18-08/18/18 CARLOTTA SANCHEZ MS, RDN
[2018-08-15 07:06] LABS: ANION GAP 9.2 (8-16); CARBON DIOXIDE 30.4 mmol/L (21-32); CREATININE 1.2 mg/dL (0.7-1.3); POTASSIUM 4.6 mmol/L (3.5-5.1)
[2018-08-15] MEDS: ALBUTEROL SULFATE/IPRATROPIU 3 ML SOL IH PRN (07:07)
--- NOTE | 2018-08-15 07:20 | NUR ---
REPORT GIVEN TO AM NURSE AT BEDSIDE. PT IN STABLE CONDITION.
--- NOTE | 2018-08-15 07:20 | NUR ---
RECEIVED PT REPORT FROM MAIL EXAMINER NURSE AT BEDSIDE. PT IS AAOX3. INTRODUCED SELF TO PT. BOARD UPDATED. DENIES PAIN. NO S/S OF ACUTE DISTRESS ON 2L O2 VIA NC. IV CATH NOTED TO R WRIST 22G RUNNING NS@100ML/HR PATENT AND ASYMPTOMATIC. SKIN WARM, DRY, AND INTACT. BED LOCKED IN LOWEST POSITION. CALL LIGHT WITHIN REACH. SAFETY PRECAUTIONS IN PLACE. SEIZURE PRECAUTIONS IN PLACE. ALL NEEDS MET AT THIS TIME.
[2018-08-15 08:00] VITALS: BP 132/85
[2018-08-15] MEDS: DOCUSATE SODIUM 250 MG GELCAP PO SCH (08:49)
[2018-08-15] MEDS: metFORMIN 500 MG TAB PO SCH ×2 (08:50→17:31)
[2018-08-15] MEDS: FERROUS SULFATE 325 MG TABEC PO SCH (08:50)
[2018-08-15] MEDS: METOCLOPRAMIDE 10 MG TAB PO SCH ×4 (08:50→20:10)
[2018-08-15] MEDS: ASCORBIC ACID 500 MG TAB PO SCH (08:51)
[2018-08-15] MEDS: DIVALPROEX 250 MG TABEC PO SCH ×2 (08:51→20:10)
[2018-08-15] MEDS: GEMFIBROZIL 600 MG TAB PO SCH ×2 (08:51→20:11)
[2018-08-15] MEDS: FAMOTIDINE 20 MG TAB PO SCH ×2 (08:51→20:10)
[2018-08-15] MEDS: NIACIN 500 MG TAB PO SCH (08:59)
--- NOTE | 2018-08-15 10:05 | NUR ---
PT WANTS SHOWER, OK WITH DR RIOS. TOOK PT TO SHOWER, IV CATH PROTECTED. PT TOLERATED SHOWER WELL. PT SAFELY RETURNED TO ROOM, RECONNECTED TO IV PUMP, NS AT 100ML/HR. PT WENT BACK TO BED.
[2018-08-15] MEDS: chlorproMAZINE 25 MG TAB PO SCH ×2 (10:25→20:11)
[2018-08-15] MEDS: NACL 0.9% 1,000 ML IV SCH (11:22)
--- NOTE | 2018-08-15 11:50 | NUR ---
BG 74, ONE APPLE JUICE GIVEN. PT DRANK IT ALL, TOLERATED WELL.
--- NOTE | 2018-08-15 14:45 | NUR ---
PT SLEEPING IN BED, NO S/S OF ACUTE DISTRESS. BREATHING EVEN AND UNLABORED.
[2018-08-15 16:00] VITALS: BP 130/81
[2018-08-15] MEDS: EZETIMIBE 10 MG TAB PO SCH (17:31)
--- NOTE | 2018-08-15 18:30 | NUR ---
PT HAD DINNER, 100% CONSUMED. PT WENT TO SLEEP. NO S/S OF ACUTE DISTRESS ON 2L O2 NC.
--- NOTE | 2018-08-15 19:20 | NUR ---
ENDORSED PT TO BUS ATTENDANT FOR CONTINUITY OF CARE. PT IN STABLE CONDITION.
--- NOTE | 2018-08-15 19:21 | NUR ---
RECEIVED BEDSIDE REPORT FROM ROULA HANCOCK. PT IS AAO X3. ON 2L O2 VIA NC. NO S/S OF SOB OR PAIN. RESPIRATIONS ARE EQUAL AND UNLABORED. IV ON R WRIST 22G IVF TKO. SKIN IS INTACT. PT IS AMBULATORY. PLAN OF CARE DISCUSSED WITH PT. SAFETY MEASURES ARE IN PLACE. CALL LIGHT IS WITHIN REACH.
--- NOTE | 2018-08-15 20:10 | NUR ---
DUE MEDICATIONS GIVEN. PT TOLERATED WELL. ALL NEEDS MET AT THIS TIME. CALL LIGHT IS WITHIN REACH.
[2018-08-15] MEDS: ATORVASTATIN 20 MG TAB PO SCH (20:11)
--- NOTE | 2018-08-15 22:15 | NUR ---
PT IS RESTING COMFORTABLY IN BED WATCHING TELEVISION. ALL NEEDS MET AT THIS TIME. CALL LIGHT IS WITHIN REACH.
[2018-08-16] VITALS: BP 116/74
--- NOTE | 2018-08-16 | NUR ---
VS ARE STABLE. PT IS RESTING COMFORTABLY IN BED. CALL LIGHT IS WITHIN REACH.
[2018-08-16] MEDS: ALBUTEROL SULFATE/IPRATROPIU 3 ML SOL IH PRN ×2 (02:38→20:28)
--- NOTE | 2018-08-16 02:47 | NUR ---
PATIENT COMPLAINS OF FEELING SOB, ASKING FOR BREATHING TREATMENT. PRN TX ADMINISTERED. TOLERATED WELL, NO ADVERSE SIDE EFFECTS. NO RESPIRATORY DISTRESS NOTED. WILL CONTINUE TO MONITOR.
--- NOTE | 2018-08-16 03:40 | NUR ---
PT IS RESTING COMFORTABLY IN BED WATCHING TELEVISION. DENIES ANY SOB OR PAIN AT THIS TIME. CALL LIGHT WITHIN REACH. ALL NEEDS MET. WILL CONTINUE TO MONITOR.
--- NOTE | 2018-08-16 05:05 | NUR ---
PTS BLOOD SUGAR IS 69. GAVE HIM ORANGE JUICE AND A CHOCOLATE PUDDING. PT TOLERATED WELL. NO S/S OF DISTRESS. CALL LIGHT IS WITHIN REACH.
[2018-08-16] MEDS: BLOOD GLUCOSE MONITORING 1 DEV DEV FS SCH ×4 (05:50→20:49)
[2018-08-16] MEDS: LEVOTHYROXINE 0.075 MG TAB PO SCH (06:04)
[2018-08-16] MEDS: PIPER/TAZO 3.375GM/D5W PREMIX 50 ML IV SCH ×3 (06:05→22:56)
[2018-08-16 07:13] LABS: BASOPHILS % (AUTO) 0.2 % (0.0-2.0); EOSINOPHILS % (AUTO) 0.7 % (0.0-4.0); HEMATOCRIT 31.8 % (36-52); HEMOGLOBIN 10.5 g/dL (12.0-18.0); LYMPHOCYTES # (AUTO) 1.9 K/uL (2.0-11.5); LYMPHOCYTES % (AUTO) 28.9 % (20.5-51.1); MEAN CORPUSCULAR HEMOGLOBIN 29 pg (27-31); MEAN CORPUSCULAR HGB CONC 33 g/dL (33-37); MEAN CORPUSCULAR VOLUME 89.1 fL (80-94); MONOCYTES # (AUTO) 0.7 K/uL (0.8-1.0); MONOCYTES % (AUTO) 10.3 % (1.7-9.3); NEUTROPHILS % (AUTO) 59.9 % (42.2-75.2); PLATELET COUNT (AUTO) 322 K/uL (140-450); RED BLOOD CELL COUNT(AUTO) 3.58 MIL/uL (4.20-6.10); RED CELL DISTRIBUTION WIDTH 14.7 % (11.6-13.7); WHITE BLOOD COUNT (AUTO) 6.7 K/uL (4.8-10.8)
--- NOTE | 2018-08-16 07:15 | NUR ---
GAVE BEDSIDE REPORT TO LAMONT HANCOCK. PT ENDORSED IN STABLE CONDITION.
--- NOTE | 2018-08-16 07:16 | NUR ---
RECEIVED BEDSIDE REPORT FROM LACHELLE HANCOCK. PATIENT AAOX3. ON 2 L NC, NO DISTRESS NOTED. SKIN INTACT. ON MED SURGE AND STANDARD PRECAUTIONS IN PLACE. FALL RISK PROTOCOL IN PLACE. IV ON R WRIST 22 G, TKO. IV ASYMPTOMATIC, PATENT AND INTACT. BED IN LOW POSITION, CALL LIGHT WITHIN REACH. WILL CONTINUE TO MONITOR.
[2018-08-16 07:27] LABS: ANION GAP 9.3 (8-16); POTASSIUM 4.3 mmol/L (3.5-5.1)
[2018-08-16 07:31] LABS: MAGNESIUM 1.8 mg/dL (1.8-2.4); PHOSPHORUS 3.2 mg/dL (2.5-4.9)
[2018-08-16 08:00] VITALS: BP 124/72
--- NOTE | 2018-08-16 08:44 | NUR ---
DUE TO RECEIVING A FNS CONSULT, PATIENT HAS BEEN CATEGORIZED HIGH RISK. PATIENT WILL BE SEEN WITHIN 1-2 DAYS FROM RECEIVING CONSULTATION. 08/16/18-08/17/[address]
[2018-08-16] MEDS: chlorproMAZINE 25 MG TAB PO SCH ×2 (09:00→21:05)
[2018-08-16] MEDS: DOCUSATE SODIUM 250 MG GELCAP PO SCH (09:00)
[2018-08-16] MEDS: METOCLOPRAMIDE 10 MG TAB PO SCH ×4 (09:00→21:04)
[2018-08-16] MEDS: DIVALPROEX 250 MG TABEC PO SCH ×2 (09:00→21:00)
[2018-08-16] MEDS: metFORMIN 500 MG TAB PO SCH ×2 (10:10→17:50)
[2018-08-16] MEDS: FAMOTIDINE 20 MG TAB PO SCH ×2 (10:11→21:03)
[2018-08-16] MEDS: GEMFIBROZIL 600 MG TAB PO SCH ×2 (10:11→21:01)
[2018-08-16] MEDS: NIACIN 500 MG TAB PO SCH (10:13)
--- NOTE | 2018-08-16 10:27 | NUR ---
ADMINISTERED SCHEDULED MEDS. PATIENT TOLERATED WELL. WILL CONTINUE TO MONITOR.
--- NOTE | 2018-08-16 12:29 | NUR ---
ADMINISTERED SCHEDULED MEDS. BLOOD SUGAR OF 96, NO COVERAGE NEEDED. PATIENT EATING LUNCH. WILL CONTINUE TO MONITOR.
--- NOTE | 2018-08-16 15:11 | NUR ---
08/16/18 RD INITIAL ASSESSMENT COMPLETED PLEASE REFER TO NUTRITION ASSESSMENT UNDER CARE ACTIVITY FOR ESTIMATED NUTRITIONAL NEEDS. 1. RECOMMEND CARDIAC DIET WITH MODIFIED TEXTURES AND LIQUID CONSISTENCIES RECOMMENDED BY SPEECH THERAPISTS 2. IF PO INTAKE <75% RECOMMEND ENSURE BID 3. RD TO FOLLOW-UP 5-7 DAYS, LOW RISK FABIOLA GALVAN, ROBERTO
--- NOTE | 2018-08-16 15:21 | NUR ---
PATIENT USED NO-RINSE SPRAY TO CLEAN HIMSELF. PATIENT SITTING AT BEDSIDE. ON 2 L 02 NC, NO DISTRESS NOTED. WILL CONTINUE TO MONITOR.
[2018-08-16 16:00] VITALS: BP 120/85
[2018-08-16] MEDS: EZETIMIBE 10 MG TAB PO SCH (17:00)
--- NOTE | 2018-08-16 17:54 | NUR ---
ADMINISTERED SCHEDULED MEDS. SPEECH THERAPIST AT BEDSIDE. PATIENT EATING DINNER. TOLERATED MEDS WELL. WILL CONTINUE TO MONITOR.
--- NOTE | 2018-08-16 18:00 | NUR ---
Control Operator Notes: I attempted to contact Patient's [facility] [employer] Operator Imani Ontiveros at to discuss and gather additional patient information. No response and I left her a voice MSG with direct contact information and request a call back to SVEN Keller tomorrow 09/17/18.
--- NOTE | 2018-08-16 18:51 | NUR ---
* ST NOTE * Pt seen sitting up in chair in pt's room during dinner meal w/nsg present. Pt alert, cooperative and engaged throughout session, reporting no c/o pain at this time. Bedside dysphagia and oral mechanism exams completed. See evaluation report for further details. Pt tolerating 3/5 alternating PO trials of mechanical soft bread, exhibiting coughing after 2/5 trials. Once clinician began chopping chicken and food up, pt tolerating texture well w/o s/s of aspiration or choking. Pt also tolerating 1/3 alternating PO trials of thin liquid tea via a cup, exhibiting coughing immediately after PO intake. Pt however tolerating 2/2 alternating PO trials of nectar-thickened apple juice via a cup w/o s/s of aspiration or choking. Pt and nsg Carmen education completed re: aspiration precautions and safe swallow compensatory strategies pt and caregivers/nsg could utilize to aid pt w/swallow function, w/pt and caregiver/Nsg Carmen verbalizing understanding and agreement w/clinician's recommendations. It is thus recommended pt's PO diet consistency be modified to mechanical soft-ground textures w/nectar-thickened liquids for all meals, w/STRICT aspiration precautions in place during pt's PO intake. No further ST follow up recommended at this time. Pt and caregiver/nsg Carmen education completed re: results of evaluation; benefits of abiding by aspiration precautions and recommended PO diet consistency; and prognosis for improvement; with pt and caregiver/nsg Carmen verbalizing understanding and agreement w/clinician's recommendations. Recommend: - PO DIET CONSISTENCY OF MECHANICAL SOFT-GROUND TEXTURES W/NECTAR-THICKENED LIQUIDS for all meals - WHOLE PO MEDICATION ADMINISTRATION W/NECTAR-THICKENED LIQUIDS OR CRUSHED IN PUREE OR GROUND TEXTURES - Maintain STRICT ASPIRATION PRECAUTIONS 2/2 TO PT'S DX OF PNA - Pt self-feeds - CUE/REMIND PT PRIOR TO PO INTAKE TO SIT UP AT 80-90 DEGREE ANGLE DURING PO INTAKE; EAT/DRINK SLOWLY; ALTERNATE BTWN SOLIDS & LIQUIDS; AND TAKE SMALL BITES/SIPS No further ST follow up recommended at this time. NOMS Level 3 Time In/Out 18:15 - 18:45
--- NOTE | 2018-08-16 19:19 | NUR ---
GAVE BEDSIDE REPORT TO MARILEE HANCOCK. PATIENT ENDORSED IN STABLE CONDITION.
--- NOTE | 2018-08-16 19:20 | NUR ---
RECEIVED PATIENT ROAMING INSIDE THE ROOM. PATIENT WAS COOPERATIVE, ABLE TO RECOGNIZES HIS NEEDS. RESPIRATION EVEN AND UNLABORED. EXPLAINED PLAN OF CARE. FALL PRECAUTION IN PLACE. CALL LIGHT WITHIN REACH. WILL CONTINUE TO MONITOR.
[2018-08-16] MEDS: ATORVASTATIN 20 MG TAB PO SCH (21:00)
--- NOTE | 2018-08-16 21:00 | NUR ---
SCHEDULE MEDICATION GIVEN TOLERATED WELL. BS TAKEN 115 NO COVERAGE PER SLIDING SCALE. NO S/S OF DISTRESS NOTED. CALL LIGHT WITHIN REACH.
[2018-08-17] VITALS: BP 118/80
--- NOTE | 2018-08-17 | NUR ---
SEEN PATIENT ASLEEP COMFORTABLY ON BED. BLANKET GIVEN FOR COMFORT. BED IN LOW LOCK POSITION. CALL LIGHT WITHIN REACH.
--- NOTE | 2018-08-17 02:34 | NUR ---
CHECKED PATIENT ASLEEP BUT EASILY AROUSABLE. NO S/S OF DISTRESS NOTED. BED IN LOW LOCKED POSITION.
--- NOTE | 2018-08-17 04:30 | NUR ---
PATIENT ASLEEP COMFORTABLY ON BED. BED IN LOW LOCKED POSITION. CALL LIGHT WITHIN REACH. WILL CONTINUE TO MONITOR.
[2018-08-17] MEDS: LEVOTHYROXINE 0.075 MG TAB PO SCH (05:58)
[2018-08-17] MEDS: PIPER/TAZO 3.375GM/D5W PREMIX 50 ML IV SCH ×3 (06:13→23:00)
[2018-08-17] MEDS: BLOOD GLUCOSE MONITORING 1 DEV DEV FS SCH ×4 (06:15→21:09)
--- NOTE | 2018-08-17 07:09 | NUR ---
GAVE REPORT TO AM SHIFT RN AT BEDSIDE FOR CONTINUITY OF CARE. BED IN LOW LOCKED POSITION. CALL LIGHT WITHIN REACH. ALL NEEDS ATTNED. PATIENT IN STABLE CONDITION.
--- NOTE | 2018-08-17 07:10 | NUR ---
RECEIVED BEDSIDE REPORT FROM KARISSA HUNT. PATIENT [id number]. PATIENT CURRENTLY ON BREATHING TREATMENTS. SKIN INTACT. PATIENT AMBULATORY. ON MED SURGE AND STANDARD PRECAUTIONS. IV ON R WR 22 G SALINE LOCK. IV ASYMPTOMATIC PATENT AND INTACT. BED IN LOW POSITION, CALL LIGHT WITHIN REACH, SIDE RAILS X2 UP. WILL CONTINUE TO MONITOR
[2018-08-17 07:21] LABS: BASOPHILS % (AUTO) 0.1 % (0.0-2.0); EOSINOPHILS % (AUTO) 0.9 % (0.0-4.0); HEMATOCRIT 32.1 % (36-52); HEMOGLOBIN 10.5 g/dL (12.0-18.0); LYMPHOCYTES # (AUTO) 2.3 K/uL (2.0-11.5); LYMPHOCYTES % (AUTO) 42.2 % (20.5-51.1); MEAN CORPUSCULAR HEMOGLOBIN 29 pg (27-31); MEAN CORPUSCULAR HGB CONC 33 g/dL (33-37); MONOCYTES # (AUTO) 0.5 K/uL (0.8-1.0); MONOCYTES % (AUTO) 9.3 % (1.7-9.3); NEUTROPHILS # (AUTO) 2.6 K/uL (1.8-7.7); NEUTROPHILS % (AUTO) 47.5 % (42.2-75.2); PLATELET COUNT (AUTO) 348 K/uL (140-450); RED BLOOD CELL COUNT(AUTO) 3.61 MIL/uL (4.20-6.10); RED CELL DISTRIBUTION WIDTH 14.6 % (11.6-13.7); WHITE BLOOD COUNT (AUTO) 5.5 K/uL (4.8-10.8)
[2018-08-17 07:28] LABS: MAGNESIUM 1.6 mg/dL (1.8-2.4); PHOSPHORUS 3.8 mg/dL (2.5-4.9)
[2018-08-17 07:32] LABS: ANION GAP 12.2 (8-16); CARBON DIOXIDE 30.3 mmol/L (21-32); CREATININE 1.1 mg/dL (0.7-1.3); POTASSIUM 4.5 mmol/L (3.5-5.1)
[2018-08-17 08:00] VITALS: BP 126/80
[2018-08-17] MEDS: DOCUSATE SODIUM 250 MG GELCAP PO SCH (09:15)
[2018-08-17] MEDS: FAMOTIDINE 20 MG TAB PO SCH ×2 (09:15→20:53)
[2018-08-17] MEDS: chlorproMAZINE 25 MG TAB PO SCH ×2 (09:15→20:52)
[2018-08-17] MEDS: METOCLOPRAMIDE 10 MG TAB PO SCH ×4 (09:16→20:53)
[2018-08-17] MEDS: metFORMIN 500 MG TAB PO SCH ×2 (09:16→17:00)
[2018-08-17] MEDS: GEMFIBROZIL 600 MG TAB PO SCH ×2 (09:16→20:53)
[2018-08-17] MEDS: DIVALPROEX 250 MG TABEC PO SCH ×2 (09:16→20:52)
[2018-08-17] MEDS: NIACIN 500 MG TAB PO SCH (09:17)
--- NOTE | 2018-08-17 09:29 | NUR ---
ADMINISTERED SCHEDULED MEDS. PATIENT TOLERATED WELL. WILL CONTINUE TO MONITOR.
--- NOTE | 2018-08-17 11:00 | NUR ---
PATIENT ON ROOM AIR, NO DISTRESS NOTED. WILL CONTINUE TO MONITOR.
--- NOTE | 2018-08-17 13:32 | NUR ---
PATIENT SITTING ON CHAIR. WITH NO DISTRESS NOTED, WILL CONTINUE TO MONITOR.
[2018-08-17 16:00] VITALS: BP 121/75
[2018-08-17] MEDS: EZETIMIBE 10 MG TAB PO SCH (17:00)
[2018-08-17] MEDS: TETRAHYDROZOLINE 0.05% OP 15 ML BTL OP SCH ×2 (17:00→21:00)
--- NOTE | 2018-08-17 17:40 | NUR ---
PATIENT SLEEPING. NO DISTRESS NOTED, ON ROOM AIR. WILL CONTINUE TO MONITOR.
--- NOTE | 2018-08-17 19:25 | NUR ---
GAVE REPORT TO KARISSA HYATT. PATIENT ENDORSED IN STABLE CONDITION.
--- NOTE | 2018-08-17 19:40 | NUR ---
RECEIVED PATIENT FROM EDMAR RN. PATIENT AWAKE, ALERT, RESPIRATION EVEN UNLABORED ON O2 2L. SKIN IS WARM AND DRY. ALL SAFETY MEASURE IN PLACE. PLAN OF CARE WAS DISCUSSED. BED IS AT LOW POSITION. CALL LIGHT WITHIN REACH.
--- NOTE | 2018-08-17 20:00 | NUR ---
INITIAL ASSESSMENT DONE. VITALS STABLE. WILL CONTINUE TO MONITOR.
[2018-08-17] MEDS: ALBUTEROL SULFATE/IPRATROPIU 3 ML SOL IH PRN (20:06)
--- NOTE | 2018-08-17 20:50 | NUR ---
MEDS WERE GIVEN PER ORDER. VISINE NOT GIVEN DUE TO DRUG UNAVAILABLE.
[2018-08-17] MEDS: ATORVASTATIN 20 MG TAB PO SCH (20:52)
[2018-08-17] MEDS: MAGNESIUM OXIDE 400 MG TAB PO SCH (20:53)
--- NOTE | 2018-08-17 22:35 | NUR ---
PATIENT LYING IN BED WATCHING TV. RESPIRATION EVEN UNLABORED ON O2 2L VIA NC. NO DISTRESS NOTED. CALL LIGHT WITHIN REACH. WILL CONTINUE TO MONITOR.
--- NOTE | 2018-08-17 23:00 | NUR ---
PATIENT REFUSED IV ANTIBIOTIC MED. NOTIFIED DR. VALENTINO AND WENT TO SEE PATIENT. PATIENT STILL REFUSED AFTER EDUCATING THE RISK AND BENEFITS OF IV ANTIBIOTIC. WILL CONTINUE TO MONITOR.
[2018-08-18] VITALS: BP 142/59
--- NOTE | 2018-08-18 | NUR ---
VITALS WERE TAKEN. PATIENT SLEEPING RESPIRATION EVEN UNLABORED ON O2 2L NC. NO DISTRESS NOTED. CALL LIGHT WITHIN REACH. WILL CONTINUE TO MONITOR
--- NOTE | 2018-08-18 03:27 | NUR ---
CHECKED PATIENT. PATIENT SLEEPING NO DISTRESS NOTED AT THIS TIME. CALL LIGHT WITHIN REACH. WILL CONTINUE TO MONITOR.
--- NOTE | 2018-08-18 05:06 | NUR ---
CHECKED PATIENT. PATIENT SLEEPING NO DISTRESS NOTED. WILL CONTINUE TO MONITOR.
[2018-08-18] MEDS: LEVOTHYROXINE 0.075 MG TAB PO SCH (05:53)
[2018-08-18] MEDS: BLOOD GLUCOSE MONITORING 1 DEV DEV FS SCH (06:01)
[2018-08-18 06:10] LABS: BASOPHILS % (AUTO) 0.1 % (0.0-2.0); EOSINOPHILS # (AUTO) 0.1 K/uL (0-0.4); EOSINOPHILS % (AUTO) 0.8 % (0.0-4.0); HEMATOCRIT 32.5 % (36-52); HEMOGLOBIN 10.4 g/dL (12.0-18.0); LYMPHOCYTES % (AUTO) 43.2 % (20.5-51.1); MEAN CORPUSCULAR HEMOGLOBIN 29 pg (27-31); MEAN CORPUSCULAR HGB CONC 32 g/dL (33-37); MEAN CORPUSCULAR VOLUME 89.7 fL (80-94); MONOCYTES # (AUTO) 0.9 K/uL (0.8-1.0); MONOCYTES % (AUTO) 13.5 % (1.7-9.3); NEUTROPHILS % (AUTO) 42.4 % (42.2-75.2); PLATELET COUNT (AUTO) 384 K/uL (140-450); RED BLOOD CELL COUNT(AUTO) 3.62 MIL/uL (4.20-6.10); RED CELL DISTRIBUTION WIDTH 14.7 % (11.6-13.7)
[2018-08-18 06:31] LABS: MAGNESIUM 1.7 mg/dL (1.8-2.4); PHOSPHORUS 3.6 mg/dL (2.5-4.9)
[2018-08-18 06:37] LABS: ANION GAP 9.1 (8-16); CARBON DIOXIDE 31.7 mmol/L (21-32); CREATININE 1.2 mg/dL (0.7-1.3); POTASSIUM 4.8 mmol/L (3.5-5.1)
--- NOTE | 2018-08-18 07:25 | NUR ---
RECEIVED PT REPORT FROM LOG CLERK NURSE AT BEDSIDE. PT IS AWAKE AND ALERT, UP AMBULATING AROUND HIS ROOM. NO S/S OF DISTRESS OR SOB. PT ON ROOM AIR, SKIN INTACT. PT IS ON A MECHANICAL SOFT DIET. NO IV SITE NOTED, PT HAS BEEN REFUSING IV, IS AWARE. PT'S FLU AND PNA VACCINES ARE UP TO DATE. CALL LIGHT WITHIN REACH, WILL CONTINUE TO MONITOR.
--- NOTE | 2018-08-18 07:32 | NUR ---
ENDORSED PATIENT TO DAY SHIFT NURSE FOR CONTINUITY OF CARE. PATIENT STABLE AT THIS TIME.
[2018-08-18 08:00] VITALS: BP 118/88
[2018-08-18] MEDS ORDERED: LEVO750T2 PO (08:45)
[2018-08-18] MEDS ORDERED: ASCO1CAP75 PO (08:45)
[2018-08-18] MEDS ORDERED: LEVOFLOXACIN 750 MG TAB PO SCH (09:00)
[2018-08-18] MEDS: MAGNESIUM OXIDE 400 MG TAB PO SCH (09:03)
[2018-08-18] MEDS: NIACIN 500 MG TAB PO SCH (09:04)
[2018-08-18] MEDS: DOCUSATE SODIUM 250 MG GELCAP PO SCH (09:05)
[2018-08-18] MEDS: GEMFIBROZIL 600 MG TAB PO SCH (09:05)
[2018-08-18] MEDS: FAMOTIDINE 20 MG TAB PO SCH (09:06)
[2018-08-18] MEDS: metFORMIN 500 MG TAB PO SCH (09:06)
[2018-08-18] MEDS: METOCLOPRAMIDE 10 MG TAB PO SCH (09:06)
[2018-08-18] MEDS: chlorproMAZINE 25 MG TAB PO SCH (09:06)
[2018-08-18] MEDS: DIVALPROEX 250 MG TABEC PO SCH (09:12)
[2018-08-18] MEDS: TETRAHYDROZOLINE 0.05% OP 15 ML BTL OP SCH (09:21)
--- NOTE | 2018-08-18 11:35 | NUR ---
PT HAS DC'D. PT WAS GIVEN DC INSTRUCTIONS TO WHICH HE VERBALIZED UNDERSTANDING, AND SIGNED DC DOCUMENTS. WRIST BAND WAS REMOVED. PT IS UP TO DATE ON FLU VACCINE. NO IV ACCESS. PT LEFT WITH ALL HIS BELONGING IN STABLE CONDITION VIA HIS FACILITY'S TRANSPORT.
== END 2018-08-18 11:35 | disposition home or self-care (01) | DRG 871 ==
LOC: MED 23:06 → MTU 08-14 02:35
PROVIDERS: ADMIT General Practice; ATTEND General Practice
DX: A41.9 Sepsis, unspecified organism (principal); J69.0 Pneumonitis due to inhalation of food and vomit; K86.1 Other chronic pancreatitis; E83.42 Hypomagnesemia; E11.43 Type 2 diabetes mellitus with diabetic autonomic (poly)neuropathy; K31.84 Gastroparesis; K21.9 Gastro-esophageal reflux disease without esophagitis; J44.9 Chronic obstructive pulmonary disease, unspecified; F29 Unspecified psychosis not due to a substance or known physiological condition; E78.5 Hyperlipidemia, unspecified; K59.09 Other constipation; G40.909 Epilepsy, unspecified, not intractable, without status epilepticus; D50.9 Iron deficiency anemia, unspecified; F63.9 Impulse disorder, unspecified; Z88.8 Allergy status to other drugs, medicaments and biological substances; Z79.899 Other long term (current) drug therapy
CPT/HCPCS: 36415; 71045; 80048; 80053; 80305; 81003; 82150; 82948; 83605; 83690; 83735; 83880; 84100; 84436; 84443; 84484; 85025; 85610; 85730; 87040; 87070; 87081; 87205; 87804; 89220; 92610; 93005; 94640; 96365; 96375; 99285; J1644; J1815; J1885; J2405; J2543; J7030; J7060; J7620; J8597; Q0092